=== PATIENT | female | born 1955 | race Caucasian/White ===

== ENCOUNTER 2016-04-18 11:46 | Outpatient (CLI) | payer MEDICARE, MEDICAID ==
[~2016-04-18] VITALS: Ht 157.5 cm; Wt 82.3 kg
[~2016-04-18 11:46] MED LIST: AMOX250C PO; ATR20T PO; BIMA2.5D3 OU; BLAC200C3 PO; DESV50TA PO; ESTR0.5T PO; ESTR1TAB14 PO; ESTR1TAB24 PO; FOLI-74 PO; HYDR-1231 PO; HYDR-3714 PO; IBUP-30 PO; INSASP10V SQ; INSU100C7 SQ; INSU100V; LEVO100T7 PO; LEVO5TAB12 PO; LEVO5TAB2 PO; LEVO75TA6 PO; LIDOCAINE PO; LOVA40TA2 PO; LVT.1T PO; METF500T8 PO; MTF500T PO; NYSTATIN PO; OMEP20CA12 PO; TML5OP2.5 OU; VITA-240 PO; ZLP10T PO; [UNRECOGNIZED DRUG - OTHER]; [UNRECOGNIZED DRUG - OTHER] PO; [UNRECOGNIZED DRUG - REMARK] OU
[2016-04-18] MEDS ORDERED: ASPI-808 PO (12:13)
[2016-04-18] MEDS ORDERED: METF-478 PO (12:13)
[2016-04-18] MEDS ORDERED: LATA2.5D5 OP (12:13)
[2016-04-18] MEDS ORDERED: NF-PREM2.5 PO (12:13)
[2016-04-18] MEDS ORDERED: DESV25TA PO (12:13)
[2016-04-18] MEDS ORDERED: IBUP-30 PO (12:13)
[2016-04-18] MEDS ORDERED: MAGN500C15 PO (12:13)
[2016-04-18] MEDS ORDERED: OMEP40CA36 PO (12:15)
[2016-04-18 12:19] VITALS: BP 138/74
== END 2016-04-18 13:38 | disposition home or self-care (01) ==
LOC: PREOP 11:46
PROVIDERS: ATTEND Orthopaedic Surgery
DX: Z01.818 Encounter for other preprocedural examination (principal); Z11.2 Encounter for screening for other bacterial diseases; S43.52XA Sprain of left acromioclavicular joint, initial encounter; X58.XXXA Exposure to other specified factors, initial encounter; Y99.8 Other external cause status
CPT/HCPCS: 87081

== ENCOUNTER 2016-04-24 06:20 | Day surgery (SDC) | payer MEDICARE, MEDICAID ==
--- NOTE | 2016-04-22 07:27 | HISTORY AND PHYSICAL ---
DATE OF ADMISSION: 04/24/2016 This will be fore left shoulder arthroscopy and distal clavicle excision. HISTORY: The patient is a 60-year-old, [id number] female who fell striking her left shoulder against a door and since then has had pain, worse with overhead activities. She reports that this has been progressive in nature. She has failed to respond to physical therapy, as well as activity modifications and due to persistent symptoms, the patient has elected to proceed with surgical intervention. An MRI revealed acromioclavicular arthrosis with some thickening of her supraspinatus but no full thickness tearing. REVIEW OF SYSTEMS: No chest pain, no shortness of breath. No dysuria. PAST MEDICAL HISTORY: 1. Back pain. 2. Constipation. 3. Depression. 4. Diabetes. 5. Reflux. 6. Hyperlipidemia. 7. Hypertension. 8. Hypothyroidism. 9. Menopause osteoarthritis. 10. Vertigo. 11. Chronic bronchitis. 12. Glaucoma. PAST SURGICAL HISTORY: 1. Appendectomy. 2. Cholecystectomy. 3. Colonoscopy. 4. Ovarian cyst resection. FAMILY HISTORY: Noncontributory. PRIMARY CARE PROVIDER: [facility]. MEDICATIONS: 1. Ambien 2. Nasacort 3. Xyzal 4. levothyroxine 5. Pristiq 6. Humalog 7. metformin 8. Tylenol 9. omeprazole 10. lovastatin 11. Levocetirizine 12. Prempro 13. Pro-Air 14. Latanoprost 15. potassium 16. Meclizine ALLERGIES: 1. Iodine 2. Keflex 3. Shrimp SOCIAL HISTORY: The patient is a former smoker. Denies alcohol use. PHYSICAL EXAMINATION: The patient's well-developed, well-nourished, in no acute distress. HEENT: Normocephalic, atraumatic. Pupils are equal, round, and reactive to light. OROPHARYNX: Clear. NECK: Supple with no lymphadenopathy. LUNGS: Clear to auscultation bilaterally. HEART: Regular rate and rhythm. ABDOMEN: Soft, nontender, nondistended. EXTREMITY EXAM: The left shoulder demonstrates tenderness at her acromioclavicular joint. She has active forward elevation of 120 degrees, passive is 160 degrees. She has pain beyond 90 degrees. She has a positive Neer and positive Hollis sign. She has weakness with abduction and external rotation. She has negative Spurling's maneuver. No skin lesions are noted. IMPRESSION: Left shoulder impingement with acromioclavicular arthrosis. PLAN: Left shoulder arthroscopy with acromioplasty, distal clavicle excision. The risks, benefits, options, ramifications and recovery were discussed at length with the patient. She understands and wishes to proceed. Job ID: [id number] Dictated Date: 04/16/2016 16:13:00 Brick Or Block Maker Date: 04/17/2016 08:38:53/anaya
[~2016-04-24] VITALS: Ht 157.5 cm; Wt 82.3 kg
[~2016-04-24 06:20] MED LIST changes: +ASPI-808 PO; +DESV25TA PO; +LATA2.5D5 OP; +MAGN500C15 PO; +METF-478 PO; +NF-PREM2.5 PO; +OMEP40CA36 PO
[2016-04-24] MEDS ORDERED: CLINDAMYCIN 600 MG/50 ML IVPB 50 ML IV ONE ×2 (06:22→07:15)
[2016-04-24] MEDS ORDERED: FAMOTIDINE 20MG/2ML IV (PEPCID) ONE (06:39)
[2016-04-24] MEDS ORDERED: SEVOFLURANE (ULTANE) 15 ML INHAL SOLN ONE (07:05)
[2016-04-24] MEDS ORDERED: ONDANSETRON 4 MG/2 ML (SDV) Z0FRAN ONE (07:05)
[2016-04-24] MEDS ORDERED: LIDOCAINE PF 2% 10 ML (XYLOCAINE) AMP ONE (07:05)
[2016-04-24] MEDS ORDERED: ROPIVACAINE 5MG/ML 30ML VIAL ONE (07:05)
[2016-04-24] MEDS ORDERED: ROCURONIUM 50 MG/5 ML (ZEMURON) VIAL IV ONE (07:05)
[2016-04-24] MEDS ORDERED: proPOfol 200 MG/20 ML (DIPRIVAN) VIAL IV ONE (07:05)
[2016-04-24] MEDS ORDERED: fentaNYL INJECTION 100 MCG/2 ML AMP ONE (07:06)
[2016-04-24] MEDS ORDERED: MIDAZOLAM 2 MG/2 ML (VERSED) VIAL ONE (07:06)
[2016-04-24] MEDS ORDERED: morphine PF (DURAMORPH) 10 MG/10 ML AMP ONE (07:10)
[2016-04-24] MEDS ORDERED: BUPIVACAINE 0.25% 30 ML (SENSORCAINE) VIAL ONE (07:10)
[2016-04-24] MEDS ORDERED: LACTATED RINGERS 1,000 ML IV PRN (07:11)
--- NOTE | 2016-04-24 07:20 | Progress Note-Pre Operative ---
Pre-Operative Progress Note H&P Reviewed The H&P was reviewed, patient examined and no changes noted. Date H&P Reviewed: Apr 24, 2016 Time H&P Reviewed: 07:11 Pre-Operative Diagnosis: left acromioclavicular joint sprain MADDI OLIVIER MD Apr 24, 2016 07:20
--- NOTE | 2016-04-24 07:21 | Progress Note-Post Operative ---
Post-Operative Progess Note Prepress Specialist Michael Ramirez Pre-Operative Diagnosis left acromioclavicular joint sprain Post-Operative Diagnosis left acromioclavicular joint sprain left shoulder SLAP tear and labral tear left shoulder adhesive capsulitis Post-Op Procedure Note Date of Procedure: Apr 24, 2016 Name of Procedure: left shoulder arthroscopic biceps tenotomy, labral debridement and distal clavicle excision and left shoulder manipulation under anesthesia Anesthesia Type GETA plus interscalene Estimated blood loss (mL): minimal Packing: none Specimen(s) collected none MADDI OLIVIER MD Apr 24, 2016 07:21
[2016-04-24] MEDS ORDERED: oxyCODONE/APAP 5/325MG (PERCOCET 5) TABLET PO PRN (07:30)
[2016-04-24 07:58] VITALS: BP 139/82
[2016-04-24] MEDS ORDERED: morphine INJ 10 MG/ML 1ML (SYR OR VIAL) ONE (08:21)
[2016-04-24] MEDS ORDERED: GLYCOPYRROLATE 0.2 MG/ML (ROBINUL) 2 ML VIAL ONE (08:24)
[2016-04-24] MEDS ORDERED: NEOSTIGMINE (BLOXIVERZ ) 1 MG/1ML 10 ML VIAL ONE (08:24)
[2016-04-24] MEDS ORDERED: ONDANSETRON 4 MG/2 ML (SDV) Z0FRAN IV PRN (09:00)
[2016-04-24] MEDS ORDERED: fentaNYL INJECTION 250 MCG/5 ML AMP IV PRN (09:00)
[2016-04-24] MEDS ORDERED: KETOROLAC 30 MG/ML VIAL IV PRN (09:00)
[2016-04-24 09:45] VITALS: BP 124/95
[2016-04-24] MEDS ORDERED: OXYC-471 PO (10:02)
[2016-04-24 10:15] VITALS: BP 115/58
[2016-04-24] MEDS ORDERED: MIDAZOLAM 2 MG/2 ML (VERSED) VIAL IV ONE (10:15)
[2016-04-24 10:45] VITALS: BP 116/59
--- NOTE | 2016-04-24 13:07 | OPERATIVE REPORT ---
PROCEDURE PHYSICIAN: MADDI OLIVIER DATE OF PROCEDURE: 04/24/2016 PREOPERATIVE DIAGNOSIS: 1. Left shoulder SLAP tear. 2. Left acromioclavicular joint sprain, symptomatic. PROCEDURE: 1. Left shoulder SLAP tear. 2. Left acromioclavicular joint sprain, symptomatic. 3. Left shoulder adhesive capsulitis. 4. Left shoulder labral tear. PROCEDURE: 1. Left shoulder arthroscopic biceps tenotomy. 2. Left shoulder arthroscopic labial debridement. 3. Left shoulder arthroscopic distal clavicle excision. 4. Left shoulder manipulation under anesthesia. SURGEON: Nina BINDERY LEADPERSON: Michael Ramirez who assisted throughout the procedure and closed the incisions. ANESTHESIA: General endotracheal plus interscalene nerve block by Bridger Robb CRNA. ESTIMATED BLOOD LOSS: Minimal. DRAINS: None. COMPLICATIONS: None. POSTOPERATIVE PLAN: Sling wear for comfort with passive range of motion, progressing to active as symptoms allow. The patient was transported to the recovery room, awake, in stable condition. STATEMENT OF MEDICAL NECESSITY: The patient is a 60-year-old female who fell into a door and had had anterior/superior left shoulder pain. This had failed to respond to conservative measures. She also had some stiffness. She had a positive [place]'s maneuver. She is tender to acromioclavicular joint and had pain with crossed body adduction and due to functional impairment and failure to improve with conservative measures, the patient elected to proceed with surgical intervention. Examination under anesthesia, pre-manipulation demonstrated forward elevation of 150 degrees. Postmanipulation was 170, external rotation pre-manipulation was 60, postmanipulation 70, internal rotation pre-manipulation 50, postmanipulation 60. Arthroscopic findings demonstrated type II SLAP tear. There was a flap tear of the anterior labrum at the 9 o'clock position. The central portion of the humeral head demonstrated diffuse grade 1 chondral softening in a 15 x 15 area. The rotator cuff was intact throughout. The subacromial space demonstrated moderate bursitis with prominence of the distal clavicle. PROCEDURE: After risks and benefits of procedure were discussed and questions were answered an informed consent was signed and placed on chart. The operative site was confirmed in the preoperative holding area and initialed by the surgeon. After adequate levels of regional plus general endotracheal anesthetic were obtained, a timeout was called confirming the operative site. Examination under anesthesia was performed with the above findings noted and manipulation was carefully performed bringing the arm in a forward elevation thus stabilizing the scapula. The arm was then brought to the side and external rotation was performed. The arm was then brought to 90 degrees of abduction and external rotation followed by internal rotation were performed until symmetric to the contralateral side. The left shoulder and upper extremity were prepped and draped usual sterile fashion. The shoulder joint was injected 20 mL of fluid as was the subacromial space. A standard posterior portal was placed under direct visualization and anterior portal was created in the interval between biceps, subscapularis and glenoid. The biceps anchor was released and the stump was debrided with a shaver. The anterior labral flap was debrided with a shaver, back to a stable edge. The scope was then redirected into subacromial space and a bursectomy was performed. The distal clavicle was excised with a bur excising the distal 8 mm from posterior to anterior and from medial to lateral. The scope was then inserted anteriorly to ensure adequate resection. The subacromial space was copiously irrigated. The portal sites were closed with 3-0 nylon in simple interrupted fashion. The shoulder was injected with Duramorph. Portal sites were infiltrated with plain Marcaine. A soft dressing and sling were applied. The patient was transported to recovery room, awake, in stable condition. Job ID: [id number] Dictated Date: 04/24/2016 08:41:50 Assembler Carbon Brushes Date: 04/24/2016 12:51:11 / kenya
== END 2016-04-24 12:10 | disposition home or self-care (01) ==
LOC: SDC 06:20
PROVIDERS: ATTEND Orthopaedic Surgery
DX: S43.52XA Sprain of left acromioclavicular joint, initial encounter (principal); M75.02 Adhesive capsulitis of left shoulder; S43.432A Superior glenoid labrum lesion of left shoulder, initial encounter; W18.00XA Striking against unspecified object with subsequent fall, initial encounter; Y99.8 Other external cause status; F32.9 Major depressive disorder, single episode, unspecified; E11.9 Type 2 diabetes mellitus without complications; K21.9 Gastro-esophageal reflux disease without esophagitis; I10 Essential (primary) hypertension; E03.9 Hypothyroidism, unspecified; Z87.891 Personal history of nicotine dependence
CPT/HCPCS: 82962

== ENCOUNTER 2016-09-03 10:44 | Outpatient (CLI) | payer MEDICARE, MEDICAID ==
[~2016-09-03] VITALS: Ht 157.5 cm; Wt 78.7 kg
[~2016-09-03 10:44] MED LIST changes: +OXYC-471 PO
[2016-09-03] MEDS ORDERED: DESV50TA PO (10:59)
[2016-09-03 11:00] VITALS: BP 127/67
== END 2016-09-03 11:31 | disposition home or self-care (01) ==
LOC: PREOP 10:44
PROVIDERS: ATTEND Orthopaedic Surgery
DX: Z01.818 Encounter for other preprocedural examination (principal); Z11.2 Encounter for screening for other bacterial diseases; M75.02 Adhesive capsulitis of left shoulder
CPT/HCPCS: 87081

== ENCOUNTER 2016-09-11 06:05 | Day surgery (SDC) | payer MEDICARE, MEDICAID ==
--- NOTE | 2016-09-03 16:29 | HISTORY AND PHYSICAL ---
DATE OF SERVICE: 09/11/2016 REASON FOR ADMISSION: Left shoulder manipulation HISTORY OF PRESENT ILLNESS: The patient is a 60-year-old right hand dominant female who previously underwent a left biceps tenotomy. She did have some mild adhesive capsulitis preoperatively. Postoperatively, she had plateaued with her motions and has failed to improve with extensive physical therapy and because of this it is recommended the patient undergo manipulation. REVIEW OF SYSTEMS: No chest pain. No shortness of breath. No Dysuria. PAST MEDICAL HISTORY: Back pain, constipation, depression, diabetes, reflux, hyperlipidemia, hypertension, hypothyroidism, menopause, osteoarthritis, vertigo, chronic bronchitis, glaucoma. PAST SURGICAL HISTORY: Appendectomy, cholecystectomy, colonoscopy, ovarian cyst resection and left shoulder arthroscopy. FAMILY HISTORY: Noncontributory. PRIMARY CARE PROVIDER: [facility]. MEDICATIONS: Ambien, Nasacort, Xyzal, levothyroxine, Pristiq, Humalog, metformin, Tylenol, omeprazole, lovastatin, levocetirizine, Prempro, ProAir, latanoprost, potassium, meclizine, oxycodone. ALLERGIES: IODINE, KEFLEX and SHRIMP. SOCIAL HISTORY: The patient is a former smoker. Denies alcohol use. PHYSICAL EXAMINATION: GENERAL: The patient is well developed and well nourished in no acute distress. HEENT: Normocephalic, atraumatic. Pupils are equal, round and reactive to light. Oropharynx is clear. NECK: Supple with no lymphadenopathy. LUNGS: Clear to auscultation bilaterally. HEART: Regular rate and rhythm. ABDOMEN: Soft, nontender, nondistended. EXTREMITIES: The left shoulder demonstrates no atrophy. She has well-healed incisions. She has active forward elevation to 140 degrees, external rotation is 50 degrees, internal rotation is to her belt line. IMPRESSION: Left shoulder adhesive capsulitis status post biceps tenotomy. PLAN: Left shoulder manipulation under anesthesia. The risks, benefits, options, ramifications and recovery were discussed at length with the patient. She understands and wishes to proceed. Job ID: [id number] DocumentID: [id number] Dictated Date: 09/03/2016 16:06:25 Implementation Coordinator Date: 09/03/2016 16:28:49 Dictated By: MADDI OLIVIER MD
[~2016-09-11] VITALS: Ht 157.5 cm; Wt 78.7 kg
[2016-09-11] MEDS ORDERED: LACTATED RINGERS 1,000 ML IV PRN (06:22)
[2016-09-11] MEDS ORDERED: NS (IVPB) 50 ML ONE (06:26)
[2016-09-11] MEDS ORDERED: ceFAZolin 1,000 MG (ANCEF) VIAL ONE (06:26)
[2016-09-11] MEDS ORDERED: FAMOTIDINE 20MG/2ML IV (PEPCID) IV ONE (06:30)
[2016-09-11] MEDS ORDERED: SEVOFLURANE (ULTANE) 15 ML INHAL SOLN ONE (06:40)
[2016-09-11] MEDS ORDERED: proPOfol 200 MG/20 ML (DIPRIVAN) VIAL IV ONE (06:40)
[2016-09-11] MEDS ORDERED: LIDOCAINE PF 2% 5 ML (XYLOCAINE) VIAL ONE (06:40)
[2016-09-11] MEDS ORDERED: LACTATED RINGERS 1,000 ML IV ONE (06:40)
[2016-09-11] MEDS ORDERED: MIDAZOLAM 2 MG/2 ML (VERSED) VIAL ONE (06:42)
[2016-09-11] MEDS ORDERED: fentaNYL INJECTION 100 MCG/2 ML AMP ONE (06:42)
[2016-09-11] MEDS ORDERED: ONDANSETRON 4 MG/2 ML (SDV) Z0FRAN ONE (06:43)
[2016-09-11] MEDS ORDERED: CATHETER FLUSH 10 ML SYR IV PRN (06:45)
[2016-09-11] MEDS ORDERED: ceFAZolin 1 GM/NS 50 ML IVPB IV ONE ×2 (06:45)
[2016-09-11] MEDS ORDERED: HYDROcodone/APAP 7.5 MG/325 MG (LORTAB, LORCET PLUS) TABLET PO PRN (07:15)
--- NOTE | 2016-09-11 07:23 | Progress Note-Pre Operative ---
Pre-Operative Progress Note H&P Reviewed The H&P was reviewed, patient examined and no changes noted. Date Seen by Provider: Sep 11, 2016 Time Seen by Provider: 07:10 Date H&P Reviewed: Sep 11, 2016 Time H&P Reviewed: 07:10 Pre-Operative Diagnosis: left shoulder adhesive capsulitis MADDI OLIVIER MD Sep 11, 2016 07:23
--- NOTE | 2016-09-11 07:25 | Progress Note-Post Operative ---
Post-Operative Progess Note Surgeon (s)/Blueprint Tracer (s) Surgeon MADDI OLIVIER MD Blueprint Tracer: Michael Ramirez Pre-Operative Diagnosis left shoulder adhesive capsulitis Post-Operative Diagnosis left shoulder adhesive capsulitis Procedure & Operative Findings Date of Procedure 09/11/16 Procedure Performed/Findings left shoulder manipulation under anesthesia Anesthesia Type GETA Estimated Blood Loss Estimated blood loss (mL): none Specimens/Packing Specimens Removed none Packing: none MADDI OLIVIER MD Sep 11, 2016 07:24
[2016-09-11 07:26] VITALS: BP 129/72
[2016-09-11] MEDS: fentaNYL INJECTION 100 MCG/2 ML AMP IVP PRN ×3 (07:59→08:09)
[2016-09-11 08:30] VITALS: BP 131/54
[2016-09-11] MEDS ORDERED: HYDR-3816 PO (08:46)
[2016-09-11 09:00] VITALS: BP 126/49
[2016-09-11 09:30] VITALS: BP 115/50
--- NOTE | 2016-09-11 09:44 | OPERATIVE REPORT ---
DATE OF SERVICE: 09/11/2016 PREOPERATIVE DIAGNOSIS: Left shoulder adhesive capsulitis. POSTOPERATIVE DIAGNOSIS: Left shoulder adhesive capsulitis. PROCEDURE: Left shoulder manipulation under anesthesia. SURGEON: Dr. Olivier. PATTERN FINISHER: Michael Ramirez who assisted throughout the procedure. ANESTHESIA: Monitored anesthesia care by Bridger Robb CRNA. ESTIMATED BLOOD LOSS: Not applicable. DRAINS: None. COMPLICATIONS: None. POSTOPERATIVE PLAN: Range of motion exercises. The patient was transferred to the recovery room, awake and in stable condition. STATEMENT OF MEDICAL NECESSITY: The patient is a 60-year-old female, who previously underwent left shoulder arthroscopy several months ago. She had plateaued on her motion and had pain due to stiffness. Due to failure to improve with extensive conservative measures, it was recommended the patient undergo manipulation her anesthesia. DESCRIPTION OF PROCEDURE: After risks and benefits of the procedure were discussed and questions were answered, an informed consent was signed and placed on the chart. The operative site was confirmed in the preoperative holding area and initialed by the surgeon. The patient was then transported to the operating room after adequate levels of monitored anesthesia care were obtained. A timeout was called, confirming the operative site while stabilizing the scapula forward elevation was performed. Over the last 10 degrees, there were adhesions that were felt to release allowing symmetric forward elevation. The arm was then brought the side and external rotation was performed while stabilizing the scapula. Again, there was release of adhesions noted. The arm was then brought in to 90 degrees of abduction and external followed by internal rotation were performed while stabilizing the scapula until symmetric to the contralateral site. The humerus moved as a unit post manipulation and the patient was transferred to the recovery room, awake and in stable condition. Job ID: [id number] DocumentID: [id number] Dictated Date: 09/11/2016 07:40:37 Oil And Gas Field Technician Date: 09/11/2016 08:58:31 Dictated By: MADDI OLIVIER MD
[2016-09-11 10:00] VITALS: BP 115/50
== END 2016-09-11 10:00 | disposition home or self-care (01) ==
LOC: SDC 06:05
PROVIDERS: ATTEND Orthopaedic Surgery
DX: M75.02 Adhesive capsulitis of left shoulder (principal); E78.5 Hyperlipidemia, unspecified; F32.9 Major depressive disorder, single episode, unspecified; F41.9 Anxiety disorder, unspecified; Z87.891 Personal history of nicotine dependence; K21.9 Gastro-esophageal reflux disease without esophagitis; E11.9 Type 2 diabetes mellitus without complications; E03.9 Hypothyroidism, unspecified; E66.9 Obesity, unspecified; Z68.31 Body mass index [BMI] 31.0-31.9, adult
CPT/HCPCS: 82962

== ENCOUNTER 2016-11-11 13:00 | Outpatient (RCR) | payer MEDICARE, MEDICAID ==
[~2016-11-11 13:00] MED LIST changes: +HYDR-3816 PO
== END 2016-12-11 10:20 | disposition home or self-care (01) ==
PROVIDERS: ATTEND Orthopaedic Surgery
DX: M75.02 Adhesive capsulitis of left shoulder (principal)

== ENCOUNTER → 2018-07-21 | Outpatient (CLI) | payer MEDICARE, MEDICAID ==
[~2018-07-21] MED LIST changes: +HYDR-34 PO; -HYDR-3816 PO
--- NOTE | 2018-07-21 16:00 | Diagnostic Imaging Report ---
INDICATION: Postmenopausal, evaluate for osteoporosis. COMPARISON: None. FINDINGS: AP Spine L1-L4: [BMD (g/cm2): 0.954] [T-Score: -2.0] [Z-Score: -1.4] [BMD Previous: NA] [BMD % Change: NA] LT Hip Neck: [BMD (g/cm2): 0.722] [T-Score: -2.3] [Z-Score: -1.4] LT Hip Total: [BMD (g/cm2):0.746] [T-Score:-1.3] [Z-Score: -0.7] [BMD Previous: NA] [BMD % Change: NA] RT Hip Neck: [BMD (g/cm2):0.755] [T-Score:-2.0] [Z-Score:-1.1] RT Hip Total: [BMD (g/cm2):0.869] [T-score:-1.1] [Z-Score:-0.6] [BMD Previous:NA] [BMD % Change:NA] *Indicates significant change from prior examination based on 95% confidence level. World Health Organization criteria for BMD interpretation classify patients as Normal (T-score at or above -1.0), Osteopenic (T-score between -1.0 and -2.5) or Osteoporotic (T-score at or below -2.5). LIMITATIONS AND MODIFICATION: None. FRACTURE RISK (FRAX SCORE): The ten year probability of (%): Major Osteoporotic Fracture: [17.3] Hip Fracture: [2.9] IMPRESSION: 1. Osteopenia (Low bone mass). 2. Baseline examination. 3. See below National Osteoporosis Foundation guidelines on when to potentially initiate pharmacologic therapy. Based on the National Osteoporosis Foundation Guidelines, pharmacologic treatment should be initiated in any of the following, unless clinical conditions suggest otherwise: * Any patient with prior fragility fracture of the hip or vertebrae. A spine fracture indicates 5X risk for subsequent spine fracture and 2X risk for subsequent hip fracture. * Osteoporosis (T-score <-2.5). * Postmenopausal women and men age 50 and older with low bone mass/osteopenia (T-score between -1.0 and -2.5) by DXA and 10-year major osteoporotic fracture greater than 20% or a 10-year probability of hip fracture greater than 3%. These fracture risks are supplied above in the FRAX score, if applicable. * Clinician judgement and/or patient preferences may indicate treatment for people with 10-year fracture probabilities above or below these levels. Dictated by: Dictated on workstation # [id number]
== END ==
LOC: RAD 11:09
PROVIDERS: ATTEND Nurse Practitioner Community Health
DX: M85.89 Other specified disorders of bone density and structure, multiple sites (principal); N95.9 Unspecified menopausal and perimenopausal disorder; Z78.0 Asymptomatic menopausal state
CPT/HCPCS: 77080

== ENCOUNTER 2018-09-11 14:23 | Outpatient (RCR) | payer MEDICARE, MEDICAID ==
[2018-09-13] MEDS ORDERED: ACHD5005 PO (12:34)
== END 2018-10-15 | disposition home or self-care (01) ==
PROVIDERS: ATTEND Nurse Practitioner Community Health
DX: M75.41 Impingement syndrome of right shoulder (principal)

== ENCOUNTER 2018-09-13 10:52 | Emergency (ER) | payer MEDICARE, MEDICAID ==
[~2018-09-13] VITALS: Ht 157.5 cm; Wt 81.6 kg
[2018-09-13] MEDS ORDERED: HYDROcodone/APAP 5 MG/325 MG (LORTAB) TAB PO ONE (11:15)
--- NOTE | 2018-09-13 11:20 | ED Lower Extremity ---
General Chief Complaint: Lower Extremity Stated Complaint: L FOOT PAIN AFTER FALL Nursing Triage Note: PT TO TRIAGE BY WHEELCHAIR WITH COMPLAINT OF LEFT FOOT PAIN. PT STATES SHE TRIPPED GOING DOWN STAIRS LAST NIGHT. Nursing Sepsis Screen: No Definite Risk Source: patient Exam Limitations: no limitations History of Present Illness Date Seen by Provider: Sep 13, 2018 Time Seen by Provider: 11:18 Initial Comments 62-year-old female who presents to the emergency room with complaints of left foot and left ankle pain after tripping down 3 stairs last night. She denies other injuries from the fall. She reports she was carrying her little dog out to use the restroom when she missed a step. She denies hitting her head or loss of consciousness. Normal capillary refill. Onset: yesterday Pain/Injury Location: left ankle Modifying Factors: Worse With Movement Allergies and Home Medications Allergies Coded Allergies: iodine (Verified Allergy, Unknown, 09/03/16) shrimp (Verified Allergy, Unknown, 09/03/16) cephalexin (Verified Adverse Reaction, Mild, DIARRHEA, 09/11/16) Home Medications Aspirin 325 Mg Tablet, 650 MG PO PRN PRN for PAIN, (Reported) Desvenlafaxine Succinate 50 Mg Tab.er.24h, 50 MG PO DAILY, (Reported) Estrog Conj/Medryoxyprog Acet 1 Tab Tab, 1 TAB PO DAILY, (Reported) Hydrocodone Bit/Acetaminophen 1 Each Tablet, 1 TAB PO Q4H PRN for PAIN-MODERATE Prescribed by: RIK NIELSEN on 09/11/16 0846 Hydrocodone Bit/Acetaminophen 1 Tab Tab, 1-2 EACH PO Q6H PRN for PAIN-MODERATE Prescribed by: CHRISTINE DIAZ on 09/13/18 1234 Ibuprofen 200 Mg Tablet, 200 MG PO PRN PRN for PAIN, (Reported) Insulin Lispro 100 Unit/1 Ml Vial, UD, (Reported) PER INSULIN PUMP Latanoprost 2.5 Ml Drops, 2.5 ML OP DAILY, (Reported) Levocetirizine Dihydrochloride 5 Mg Tablet, 5 MG PO DAILY, (Reported) Levothyroxine Sodium 100 Mcg Tablet, 100 MCG PO DAILY, (Reported) Lovastatin 40 Mg Tablet, 40 MG PO HS, (Reported) Magnesium Oxide 500 Mg Capsule, 500 MG PO DAILY, (Reported) Metformin Hcl 500 Mg Tab.sr.24h, 500 MG PO BID, (Reported) Omeprazole 40 Mg Capsule.dr, 40 MG PO BID, (Reported) Zolpidem Tartrate 10 Mg Tab, 5 MG PO HS PRN for SLEEP NEEDED FOR SLEEP Prescribed by: KAROLYN FARMER on 08/24/13 0987 Patient Home Medication List Home Medication List Reviewed: Yes Review of Systems Constitutional: see HPI; No chills, No fever Musculoskeletal: see HPI, joint pain (left ankle) All Other Systems Reviewed Negative Unless Noted: Yes Past Ukmpviy-Nedgcr-Ureucj Hx Past Med/Social Hx: Reviewed Nursing Past Med/Soc Hx Patient Social History Alcohol Use: Denies Use Recreational Drug Use: No Smoking Status: Former Smoker Former Smoker, Quit: Apr 18, 1993 Recent Foreign Travel: No Contact w/Someone Who Travel: No Recent Infectious Disease Expo: No Recent Hopitalizations: No Immunizations Up To Date Tetanus Booster (TDap): Less than 5yrs Date of Pneumonia Vaccine: May 22, 2011 Seasonal Allergies Seasonal Allergies: Yes Past Medical History Surgeries: Yes (OVARIAN CYST, DENTAL, MOLE REMOVED, TOENAIL, FX ARM) Appendectomy Respiratory: No Cardiac: Yes High Cholesterol Neurological: No Reproductive Disorders: No Female Reproductive Disorders: Ovarian 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 Sexually Transmitted Disease: No HIV/AIDS: Yes Kidney Stones Gastrointestinal: Yes Gastroesophageal Reflux, Chronic Constipation Musculoskeletal: Yes Arthritis, Chronic Back Pain, Fractures Endocrine: Yes Diabetes, Insulin dep, Hypothyroidsim Glaucoma Loss of Vision: Bilateral Hearing Impairment: Denies Cancer: No Psychosocial: Yes Anxiety, Depression Integumentary: No Blood Disorders: No Adverse Reaction/Blood Tranf: No (N/A) Family Medical History Reviewed Nursing Family Hx Cancer 19 FATHER ( of stomache cancer) Family history: Arthritis G8 BROTHER (bad back) Family history: Gastrointestinal disease 19 MOTHER ( with c-diff) Physical Exam Vital Signs Vital Signs - First Documented 09/13/18 11:05 Temp 97.0 Pulse 64 Resp 17 B/P (MAP) 119/60 (79) Pulse Ox 96 O2 Delivery Room Air Capillary Refill : Less Than 3 Seconds Height, Weight, BMI Height: 5'2.00" Weight: 180lbs. 7.0oz. 81.415539ex; 31.7 BMI Method:Stated General Appearance: WD/WN, no apparent distress Cardiovascular: normal peripheral pulses, regular rate, rhythm, no edema, no gallop, no JVD, no murmur Respiratory: chest non-tender, lungs clear, normal breath sounds, no respi ratory distress, no accessory muscle use Ankles: left ankle pain, left ankle soft tissue tenderness Neurologic/Tendon: normal sensation Neurologic/Psychiatric: alert, normal mood/affect, oriented x 3 Skin: normal color, warm/dry Progress/Results/Core Measures Results/Orders My Orders Orders - CHRISTINE DIAZ Hydrocodone/Apap 5/325 Tablet (Lortab 5 (09/13/18 11:15) Foot, Left, 3 Views (09/13/18 11:10) Ankle, Left, 3 Views (09/13/18 11:10) Medications Given in ED Vital Signs/I&O 09/13/18 09/13/18 11:05 13:00 Temp 97.0 97.0 Pulse 64 64 Resp 17 17 B/P (MAP) 119/60 (79) 119/60 (79) Pulse Ox 96 96 O2 Delivery Room Air Blood Pressure Mean: 79 Progress Progress Note : Time: 12:32 Progress Note I have seen and evaluated the patient. I have informed her of her imaging studies. She was placed in splint and walker was provided. She agrees with plan of care, plans for discharge, return precautions were given. Departure Impression Primary Impression: Metatarsal stress fracture of left foot Disposition: 01 HOME, SELF-CARE Condition: Stable/Unchanged Departure-Patient Inst. Decision time for Depature: 12:32 Referrals: [facility] (PCP) Primary Care Physician SHER ROSARIO (Family) Primary Care Physician EUGENE LEGGETT MD Patient Instructions: Foot Fracture (DC) Add. Discharge Instructions: Use the crutches and wear the splint at all times. Do not bare weight on the foot. Ice to the sore areas at 20 minute intervals. Elevate the extremity as much as possible. Take medication as directed. For pain unrelieved by the hydrocodone you may use Tylenol in addition to. Do not exceed your daily limit of Tylenol 4000 mg. Call first thing tomorrow morning to schedule appointment with Dr. Leggett orthopedic surgeon. Return back to the emergency room for worsening symptoms or concerns as needed. All discharge instructions reviewed with patient and/or family. Voiced understanding. Scripts Hydrocodone Bit/Acetaminophen (Hydrocodone/Acetaminophen 5/325mg Tablet) 1 Tab Tab 1-2 EACH PO Q6H PRN for PAIN-MODERATE MDD 10 for 3 Days, #20 TAB 0 Refills Prov: CHRISTINE DIAZ 09/13/18 CHRISTINE DIAZ Sep 13, 2018 11:20
--- NOTE | 2018-09-13 12:05 | Diagnostic Imaging Report ---
Indication: Pain and swelling. Findings: There are fractures through the proximal second, third and fourth metatarsals. These are minimally displaced. Distal fracture fragments are subluxed slightly laterally. No other fracture or dislocation. Soft tissues are unremarkable. Impression: Minimally displaced fractures through the proximal second, third and fourth metatarsals as described. Dictated by: Dictated on workstation # [id number]
--- NOTE | 2018-09-13 12:08 | Diagnostic Imaging Report ---
EXAM: ANKLE, LEFT, 3 VIEWS. INDICATION: Trip on stairs. Swelling and pain. COMPARISON: Left foot radiographs also performed today. FINDINGS: Normal alignment of the ankle. No ankle fracture. No left ankle joint effusion. Mildly displaced fractures through the base of the left second through fourth metatarsals are better appreciated on the comparison exam. IMPRESSION: 1. No acute findings in the left ankle. 2. Left second through fourth metatarsal fractures, better appreciated on the dedicated exam. Dictated by: Dictated on workstation # [id number]
[2018-09-13] MEDS ORDERED: ACHD5005 PO (12:34)
[2018-09-13 13:00] VITALS: BP 119/60
== END 2018-09-13 13:00 | disposition home or self-care (01) ==
LOC: EDUNIT# 10:52 → ER 10:53
DX: M84.375A Stress fracture, left foot, initial encounter for fracture (principal); E78.00 Pure hypercholesterolemia, unspecified; K21.9 Gastro-esophageal reflux disease without esophagitis; E03.9 Hypothyroidism, unspecified; E11.9 Type 2 diabetes mellitus without complications; F41.9 Anxiety disorder, unspecified; F32.9 Major depressive disorder, single episode, unspecified; Z87.19 Personal history of other diseases of the digestive system; Z87.442 Personal history of urinary calculi; Z80.0 Family history of malignant neoplasm of digestive organs; Z91.041 Radiographic dye allergy status; Z88.1 Allergy status to other antibiotic agents; Z79.82 Long term (current) use of aspirin; Z79.4 Long term (current) use of insulin; Z87.891 Personal history of nicotine dependence; Z90.49 Acquired absence of other specified parts of digestive tract; W10.8XXA Fall (on) (from) other stairs and steps, initial encounter; X50.1XXA Overexertion from prolonged static or awkward postures, initial encounter
CPT/HCPCS: 73610; 73630

== ENCOUNTER → 2018-09-15 | Outpatient (CLI) | payer MEDICARE, MEDICAID ==
[~2018-09-15] MED LIST changes: +ACHD5005 PO
== END ==
LOC: ORTHO 14:52
PROVIDERS: ATTEND Orthopaedic Surgery
DX: S92.322A Displaced fracture of second metatarsal bone, left foot, initial encounter for closed fracture (principal); X58.XXXA Exposure to other specified factors, initial encounter
CPT/HCPCS: 99203

== ENCOUNTER → 2018-09-30 | Outpatient (CLI) | payer MEDICARE, MEDICAID ==
--- NOTE | 2018-09-30 12:01 | Diagnostic Imaging Report ---
EXAMINATION: Left foot. INDICATION: Fracture of second, third, and fourth metatarsal. TECHNIQUE: Three views were obtained. FINDINGS: The prior exam of 09/13/2018 noted minimally displaced fractures of the proximal second, third, and fourth metatarsals. On this exam, the fractures of the third and fourth metatarsals are unchanged. There does not appear to have been any significant change in the fracture involving the base of the second metatarsal either. However, I would suggest that the distal fracture fragment of the second metatarsal is displaced laterally by approximately one-third the width of the base of the second metatarsal. There is little healing callus formation about the fracture fragments. No other fracture or acute bony abnormality is noted. There does seem to be less soft tissue edema over the forefoot than noted on the prior exam. IMPRESSION: 1. The displaced fracture of the second metatarsal and the minimally displaced fractures of the base of the third and fourth metatarsals seen previously are again evident and essentially no different. There is little if any healing callus formation present. A followup study would be recommended for continued evaluation. 2. There is no acute bony abnormality noted, otherwise. Dictated by: Dictated on workstation # [id number]
== END ==
LOC: ORTHO 08:21
PROVIDERS: ATTEND Orthopaedic Surgery
DX: S92.322A Displaced fracture of second metatarsal bone, left foot, initial encounter for closed fracture (principal); S92.332A Displaced fracture of third metatarsal bone, left foot, initial encounter for closed fracture; S92.342A Displaced fracture of fourth metatarsal bone, left foot, initial encounter for closed fracture; X58.XXXA Exposure to other specified factors, initial encounter
CPT/HCPCS: 73630; 99213

== ENCOUNTER → 2018-10-22 | Outpatient (CLI) | payer MEDICARE, MEDICAID ==
--- NOTE | 2018-10-22 17:32 | Diagnostic Imaging Report ---
INDICATION: Follow-up metatarsal fractures. TIME OF EXAM: 01:48 p.m. Correlation is made with prior study from 09/30/2018. FINDINGS: Fractures at the base of the second, third, and fourth metatarsals are again noted. Fracture lines remain visible. Overall alignment is stable. No new fracture is seen. Phalanges are intact. Mid foot and hind foot are unremarkable. IMPRESSION: Stable appearance of the left foot since examination from 09/30/2018. Fractures at the base of the second through fourth metatarsals are again noted with fracture lines remaining clearly visible. Dictated by: Dictated on workstation # [id number]
== END ==
LOC: ORTHO 13:12
PROVIDERS: ATTEND Orthopaedic Surgery
DX: S92.322A Displaced fracture of second metatarsal bone, left foot, initial encounter for closed fracture (principal); S92.332A Displaced fracture of third metatarsal bone, left foot, initial encounter for closed fracture; S92.342A Displaced fracture of fourth metatarsal bone, left foot, initial encounter for closed fracture; X58.XXXA Exposure to other specified factors, initial encounter
CPT/HCPCS: 73630; 99213

== ENCOUNTER → 2018-11-17 | Outpatient (CLI) | payer MEDICARE, MEDICAID ==
--- NOTE | 2018-11-17 14:13 | Diagnostic Imaging Report ---
Indication: Followup metatarsal fractures. Time of exam 1:32 PM Correlation is made with prior left foot radiographs from 10/22/2018. Fractures at the base of the second, third and fourth metatarsals again noted. Overall alignment appears to be stable. Fracture lines remain visible. No new fracture is seen. Phalanges are unremarkable. Midfoot and hindfoot are unremarkable. Impression: Fractures involving the second through fourth metatarsals proximally appear very similar to the examination from 10/22/2018 with fracture lines remaining clearly visible. Dictated by: Dictated on workstation # [id number]
== END ==
LOC: ORTHO 13:13
PROVIDERS: ATTEND Orthopaedic Surgery
DX: S92.322D Displaced fracture of second metatarsal bone, left foot, subsequent encounter for fracture with routine healing (principal); S92.332D Displaced fracture of third metatarsal bone, left foot, subsequent encounter for fracture with routine healing; S92.342D Displaced fracture of fourth metatarsal bone, left foot, subsequent encounter for fracture with routine healing
CPT/HCPCS: 73630; 99213

== ENCOUNTER 2018-12-18 22:14 | Inpatient (IN) | payer MEDICARE, MEDICAID | END 2018-12-23 18:58 | disposition other institution (70) | LOC: ICU 12-19 00:15 → 4TH 12-21 10:18 → ER 22:14 | PROC: 02HV33Z Insertion of Infusion Device into Superior Vena Cava, Percutaneous Approach (ICD-10-PCS; principal; 2018-12-21 14:38) | DX: E11.10 Type 2 diabetes mellitus with ketoacidosis without coma (principal); E86.0 Dehydration; E87.2 Acidosis; E87.1 Hypo-osmolality and hyponatremia; E78.00 Pure hypercholesterolemia, unspecified; E03.9 Hypothyroidism, unspecified; M54.9 Dorsalgia, unspecified; M19.91 Primary osteoarthritis, unspecified site; K21.9 Gastro-esophageal reflux disease without esophagitis; H40.9 Unspecified glaucoma; F41.9 Anxiety disorder, unspecified; F32.9 Major depressive disorder, single episode, unspecified; Z87.891 Personal history of nicotine dependence; Z79.4 Long term (current) use of insulin; Z91.19 Patient's noncompliance with other medical treatment and regimen ==

== ENCOUNTER 2019-01-18 05:32 | Outpatient (CLI) | payer MEDICARE, MEDICAID ==
[~2019-01-18] VITALS: Ht 154.9 cm; Wt 72.7 kg
[~2019-01-18 05:32] MED LIST changes: +CALC-6 PO; +CARI1.5C PO; +CELE100C84 PO; +ESTR0.62 PO; +INSU100V16; -LATA2.5D5 OP; +LATA2.5D5 OU; +METF-399 PO; +PANT40TA3 PO; +RANI150C4 PO; +SERT100T8 PO; +SUCR1TAB PO; +TIMO5DRO5 OU; +VENL75CA93 PO; +ZOLP5TAB7 PO
== END 2019-01-18 14:55 | disposition home or self-care (01) ==
LOC: PREOP 05:32
PROVIDERS: ATTEND Surgery
DX: Z01.818 Encounter for other preprocedural examination (principal)

== ENCOUNTER 2019-06-22 14:23 | Outpatient (RCR) | payer MEDICARE, MEDICAID ==
[~2019-06-22 14:23] MED LIST changes: -ESTR1TAB14 PO; +NFPREMP0.3 PO; +OMEP40CA27 PO; -OMEP40CA36 PO; +VITA-235 PO; -VITA-240 PO
== END 2019-06-23 | disposition home or self-care (01) ==
PROVIDERS: ATTEND Nurse Practitioner Community Health
DX: M25.511 Pain in right shoulder (principal); M54.2 Cervicalgia; M75.42 Impingement syndrome of left shoulder

== ENCOUNTER 2019-06-25 11:35 | Outpatient (RCR) | payer MEDICARE, MEDICAID ==
[2019-07-14] MEDS ORDERED: MELA3TAB52 PO (12:17)
[2019-07-14] MEDS ORDERED: MIRA25TA PO (12:17)
[2019-07-14] MEDS ORDERED: FERR-84 PO (12:17)
[2019-07-14] MEDS ORDERED: ASCO500C17 PO (12:18)
[2019-07-14] MEDS ORDERED: BREX2TAB PO (12:18)
== END 2019-09-23 | disposition home or self-care (01) ==
PROVIDERS: ATTEND Nurse Practitioner Community Health
DX: M25.511 Pain in right shoulder (principal); M54.2 Cervicalgia; M75.42 Impingement syndrome of left shoulder

== ENCOUNTER 2019-07-14 11:05 | Outpatient (CLI) | payer MEDICARE, MEDICAID ==
[~2019-07-14] VITALS: Ht 157 cm; Wt 83.6 kg
[2019-07-14] MEDS ORDERED: MELA3TAB52 PO (12:17)
[2019-07-14] MEDS ORDERED: MIRA25TA PO (12:17)
[2019-07-14] MEDS ORDERED: FERR-84 PO (12:17)
[2019-07-14] MEDS ORDERED: ASCO500C17 PO (12:18)
[2019-07-14] MEDS ORDERED: BREX2TAB PO (12:18)
== END 2019-07-14 12:20 | disposition home or self-care (01) ==
LOC: PREOP 11:05
PROVIDERS: ATTEND Surgery
DX: Z01.818 Encounter for other preprocedural examination (principal)

== ENCOUNTER → 2019-10-26 | Outpatient (CLI) | payer MEDICARE, MEDICAID ==
[~2019-10-26] MED LIST changes: +ASCO500C17 PO; +BREX2TAB PO; +FERR-84 PO; +MELA3TAB52 PO; +MIRA25TA PO
--- NOTE | 2019-10-26 16:54 | Diagnostic Imaging Report ---
INDICATION: Routine screening. COMPARISON: 02/22/2015 and 12/20/2013. TECHNIQUE: 2D and 3D bilateral screening mammography was performed with CAD. FINDINGS: Both breasts are heterogeneously dense, limiting the sensitivity of mammography. There are benign calcifications throughout both breasts. The overall parenchymal pattern appears to be stable. No mass or malignant appearing microcalcifications are seen. IMPRESSION: No mammographic features suspicious for malignancy are identified. ACR BI-RADS Category 2: Benign findings. Result letter will be mailed to the patient. Note: At least 10% of breast cancer is not imaged by mammography. Dictated by: Dictated on workstation # [id number]
== END ==
LOC: RAD 15:22
PROVIDERS: ATTEND Nurse Practitioner Community Health
DX: Z12.31 Encounter for screening mammogram for malignant neoplasm of breast (principal)
CPT/HCPCS: 77063; 77067

== ENCOUNTER 2020-08-03 05:31 | Outpatient (RCR) | payer MEDICARE, MEDICAID ==
[~2020-08-03] VITALS: Ht 157.5 cm; Wt 90.5 kg
[~2020-08-03 05:31] MED LIST changes: +ARIP2TAB20 PO; -CALC-6 PO; +CALC1TAB84 PO; +CANA100T PO; +CELE-63; +LATA2.5D19 OU; +MIRA50TA PO; -OXYC-471 PO; +OXYC1TAB11 PO; -PANT40TA3 PO; +PANT40TA52 PO; +SERT-414 PO; -SERT100T8 PO; -VITA-235 PO; +VITA-261 PO
== END 2020-08-03 09:05 | disposition home or self-care (01) ==
LOC: PREOP 05:31
PROVIDERS: ATTEND Surgery
DX: Z01.812 Encounter for preprocedural laboratory examination (principal); K21.9 Gastro-esophageal reflux disease without esophagitis; Z20.822 Contact with and (suspected) exposure to COVID-19
CPT/HCPCS: 87635

== ENCOUNTER 2020-08-07 10:53 | Day surgery (SDC) | payer MEDICARE, MEDICAID ==
[~2020-08-07] VITALS: Ht 157.5 cm; Wt 90.5 kg
[2020-08-07] MEDS ORDERED: LACTATED RINGERS 1,000 ML IV STA (10:54)
[2020-08-07] MEDS ORDERED: HURRICAINE EXT TUBE (BENZOCAINE) XX PRN (11:00)
[2020-08-07 11:16] VITALS: BP 132/79
[2020-08-07] MEDS ORDERED: LEVO112T55 PO (11:22)
--- NOTE | 2020-08-07 11:26 | Progress Note-Pre Operative ---
Pre-Operative Progress Note H&P Reviewed The H&P was reviewed, patient examined and no changes noted. Time Seen by Provider: 11:24 Date H&P Reviewed: August 07, 2020 Time H&P Reviewed: 11:24 Pre-Operative Diagnosis: Hx of Esophageal ulcer, chronic gastritis KENDALL DOW DO August 07, 2020 11:25
[2020-08-07] MEDS ORDERED: MIDAZOLAM 2 MG/2 ML (VERSED) VIAL ONE (11:53)
[2020-08-07] MEDS ORDERED: proPOfol 200 MG/20 ML (DIPRIVAN) VIAL IV ONE (11:53)
[2020-08-07 12:35] VITALS: BP 165/77
--- NOTE | 2020-08-07 12:37 | Progress Note-Post Operative ---
Post-Operative Progess Note Surgeon (s)/Cylinder Checker (s) Surgeon KENDALL DOW DO Cylinder Checker: none Pre-Operative Diagnosis Hx of Esophageal ulcer, chronic gastritis Post-Operative Diagnosis Gastritis Hiatal hernia Procedure & Operative Findings Date of Procedure 08/07/20 Procedure Performed/Findings EGD with bx Anesthesia Type IV sedation by VEHICLE AND EQUIPMENT CLEANER Estimated Blood Loss Estimated blood loss (mL): scant Specimens/Packing Specimens Removed antral bx GE jxn bx KENDALL DOW DO August 07, 2020 12:37
[2020-08-07 12:40] VITALS: BP 165/77
--- NOTE | 2020-08-07 12:42 | Endoscopy Discharge Instruct ---
Endo Procedure/Findings Findings 1.: Gastritis 2.: Hiatal Hernia Discharge Instructions - Activity: You might feel a little sleepy until tomorrow. This is due to the medicine you received to relax you. Until tomorrow, you should: NOT drive a car, operate machinery or power tools. NOT drink any alcoholic beverages. NOT make any important decisions or sign importortant papers. Do not return to work until tomorrow, unless otherwise instructed. Resume previous activities tomorrow. Diet: Start by taking liquids. If you tolerate liquids, advance to solid food. 1.: EGD in 3 years Notify Physician - If you experience excessive bleeding, unusual abdominal pain, fever, or chest pain, contact your doctor immediately. KENDALL DOW DO August 07, 2020 12:42
[2020-08-07 12:45] VITALS: BP 165/77
--- NOTE | 2020-08-07 12:49 | Anesthesia-General Post-Op ---
MAC Patient Condition Mental Status/LOC: Same as Preop Cardiovascular: Satisfactory Nausea/Vomiting: Absent Respiratory: Satisfactory Pain: Controlled Complications: Absent Post Op Complications Complications None Follow Up Care/Instructions Patient Instructions None needed. Anesthesiology Discharge Order Discharge Order Patient is doing well, no complaints, stable vital signs, no apparent adverse anesthesia problems. No complications reported per nursing. TRESA AMAYA CRNA August 07, 2020 12:49
[2020-08-07 13:10] VITALS: BP 165/77
--- NOTE | 2020-08-07 21:04 | OPERATIVE REPORT ---
DATE OF SERVICE: 08/07/2020 PREOPERATIVE DIAGNOSES: History of esophageal ulcer and chronic gastritis. POSTOPERATIVE DIAGNOSES: Gastritis, hiatal hernia. PROCEDURE: EGD with biopsy. SURGEON: Geovany Sauer DO SENIOR SOFTWARE ENGINEER: None. ANESTHESIA: IV sedation by the BIOCHEMIST. SPECIMEN: Biopsy from the antrum as well as biopsy from the GE junction. BLOOD LOSS: Scant. FLUIDS: Per anesthesia. POSTOPERATIVE CONDITION: Stable. INDICATION FOR PROCEDURE: The patient is a 64-year-old female who has had a history of esophageal ulcer and some chronic gastritis, needed a repeat EGD. FINDINGS: The patient had some mild gastritis and hiatal hernia as well as mild esophagitis. PROCEDURE NOTE: After informed consent was obtained, the patient was brought to the endoscopy suite, placed in bed in left lateral decubitus position. She was administered IV sedation by the BIOCHEMIST who then monitored her vitals the entire time, heart rate, blood pressure and pulse ox and the scope was inserted down the mouth through the esophagus into the stomach. On the way down, noted some mild esophagitis, took a picture, pushed into the stomach, pushed pass the antrum into the duodenum. Duodenum looked good. Pulled back and did a biopsy of antrum, then retroflexed the scope, saw hiatal hernia, took a picture of this and then pulled the scope into the GE junction, took another picture of the hiatal hernia and then did a biopsy of the GE junction. Pushed the scope back into the stomach, suctioned all the air out of the stomach and then pulled the scope up the esophagus, took some pictures in the esophagus. There were no ulcers and at this point pulled the scope up the esophagus and out the mouth. The patient tolerated the procedure, and recovered in endoscopy suite. Job ID: [id number] DocumentID: [id number] Dictated Date: 08/07/2020 14:27:00 Embedded Systems Engineer Date: 08/07/2020 21:04:28 Dictated By: GEOVANY SAUER DO
== END 2020-08-07 13:17 | disposition home or self-care (01) ==
LOC: ENDO 10:53
PROVIDERS: ATTEND Surgery
DX: K44.9 Diaphragmatic hernia without obstruction or gangrene (principal); K29.70 Gastritis, unspecified, without bleeding; K22.70 Barrett's esophagus without dysplasia; I10 Essential (primary) hypertension; F41.9 Anxiety disorder, unspecified; F32.9 Major depressive disorder, single episode, unspecified; M19.90 Unspecified osteoarthritis, unspecified site; E11.9 Type 2 diabetes mellitus without complications; K21.00 Gastro-esophageal reflux disease with esophagitis, without bleeding; E66.9 Obesity, unspecified; Z68.36 Body mass index [BMI] 36.0-36.9, adult; Z79.899 Other long term (current) drug therapy; Z79.84 Long term (current) use of oral hypoglycemic drugs; Z79.890 Hormone replacement therapy; Z87.891 Personal history of nicotine dependence; E78.00 Pure hypercholesterolemia, unspecified; Z87.19 Personal history of other diseases of the digestive system
CPT/HCPCS: 88305

== ENCOUNTER → 2020-11-24 | Outpatient (CLI) | payer MEDICARE, MEDICAID ==
[~2020-11-24] MED LIST changes: +LEVO112T55 PO; -OMEP40CA27 PO; +OMEP40CA6 PO
--- NOTE | 2020-11-27 09:03 | Diagnostic Imaging Report ---
INDICATION: Routine screening. Comparison is made with prior mammogram 10/26/2019 and 02/22/2015. 2-D and 3-D bilateral screening mammography was performed with CAD. Both breasts remain heterogeneously dense, limiting the sensitivity of mammography. There are benign calcifications scattered throughout both breasts. No mass or malignant-appearing microcalcifications are seen. Axillae are unremarkable. IMPRESSION: BI-RADS Category 2 No mammographic features suspicious for malignancy are identified. ACR BI-RADS Category 2: Benign findings. Result letter will be mailed to the patient. Note: At least 10% of breast cancer is not imaged by mammography. Dictated by: Dictated on workstation # [id number]
== END ==
LOC: RAD 11:16
PROVIDERS: ATTEND Nurse Practitioner Family
DX: Z12.31 Encounter for screening mammogram for malignant neoplasm of breast (principal)
CPT/HCPCS: 77063; 77067

== ENCOUNTER 2021-07-23 05:30 | Outpatient (CLI) | payer MEDICARE, MEDICAID ==
[~2021-07-23] VITALS: Ht 156 cm; Wt 91.2 kg
[2021-07-24] MEDS ORDERED: INSU100V5 SQ (13:55)
[2021-07-24] MEDS ORDERED: DIPH50CA PO (13:55)
[2021-07-24] MEDS ORDERED: FLUT9.9S NS (13:55)
== END 2021-07-24 14:08 | disposition home or self-care (01) ==
LOC: PREOP 05:30
PROVIDERS: ATTEND Obstetrics & Gynecology
DX: Z01.818 Encounter for other preprocedural examination (principal)

== ENCOUNTER 2021-07-30 05:57 | Day surgery (SDC) | payer MEDICARE, MEDICAID ==
[~2021-07-30] VITALS: Ht 155 cm; Wt 91.2 kg
[2021-07-30] VITALS (11 sets, daily range): BP systolic 108–159; BP diastolic 44–79
[~2021-07-30 05:57] MED LIST changes: +DIPH50CA PO; +FLUT9.9S NS; +INSU100V5 SQ
[2021-07-30] MEDS: LACTATED RINGERS 1,000 ML IV PRN ×2 (06:30→08:43)
[2021-07-30 07:00] LABS: BASOPHILS # (AUTO) 0.1 10^3/uL (0.0-0.1); BASOPHILS % (AUTO) 1 % (0-10); EOSINOPHILS # (AUTO) 0.5 10^3/uL (0.0-0.3); EOSINOPHILS % (AUTO) 4 % (0-10); HEMATOCRIT 36 % (35-52); HEMOGLOBIN 11.8 g/dL (11.5-16.0); LYMPHOCYTES # (AUTO) 2.1 10^3/uL (1.0-4.0); LYMPHOCYTES % (AUTO) 20 % (12-44); MEAN CORPUSCULAR HEMOGLOBIN 29 pg (25-34); MEAN CORPUSCULAR HGB CONC 33 g/dL (32-36); MEAN CORPUSCULAR VOLUME 88 fL (80-99); MEAN PLATELET VOLUME 11.7 fL (9.0-12.2); MONOCYTES # (AUTO) 0.7 10^3/uL (0.0-1.0); MONOCYTES % (AUTO) 7 % (0-12); NEUTROPHILS # (AUTO) 7.5 10^3/uL (1.8-7.8); NEUTROPHILS % (AUTO) 69 % (42-75); PLATELET COUNT 313 10^3/uL (130-400); WHITE BLOOD COUNT 10.9 10^3/uL (4.3-11.0)
[2021-07-30] MEDS ORDERED: proPOfol 200 MG/20 ML (DIPRIVAN) VIAL IV ONE (07:00)
[2021-07-30] MEDS ORDERED: ONDANSETRON 4 MG/2 ML (SDV) Z0FRAN ONE (07:00)
[2021-07-30] MEDS ORDERED: LIDOCAINE PF 2% 5 ML (XYLOCAINE) VIAL ONE (07:00)
[2021-07-30] MEDS ORDERED: SUCCINYLCHOLINE INJ 100 MG/5 ML SYR/VIAL ONE (07:00)
[2021-07-30] MEDS ORDERED: MIDAZOLAM 2 MG/2 ML (VERSED) VIAL ONE (07:01)
[2021-07-30] MEDS ORDERED: fentaNYL INJ 100 MCG/2 ML AMP ONE (07:01)
--- NOTE | 2021-07-30 07:20 | Progress Note-Pre Operative ---
Pre-Operative Progress Note H&P Reviewed The H&P was reviewed, patient examined and no changes noted. Date Seen by Provider: Jul 30, 2021 Time Seen by Provider: 07:10 Date H&P Reviewed: Jul 30, 2021 Time H&P Reviewed: 07:20 Pre-Operative Diagnosis: PMB, Thickened endometrium MADDI MONTES DO Jul 30, 2021 07:20
--- NOTE | 2021-07-30 07:23 | Discharge Inst-Women's Service ---
Discharge Inst-Women's Serv Depart Medication/Instructions New, Converted or Re-Newed RX: Transmitted to Pharmacy Problems Reviewed?: Yes Consults/Follow Up Additional Follow Up: Yes Orders/Referrals Dr. Montes 2 weeks Activity Activity: Activity as Tolerated Driving Instructions: No Driving for 1 Week NO SMOKING: NO SMOKING Nothing Inside Vagina: No Douching, No [place], No Tampons Diet Discharge Diet: No Restrictions Symptoms to Report to : Bleeding Excessive, Pain Increased, Fever Over 101 Degrees F, Vaginal Bleeding Increase, Questions/Concerns For Any Problems or Questions: Contact Your Physician MADDI MONTES DO Jul 30, 2021 07:23
[2021-07-30] MEDS ORDERED: ONDANSETRON 4 MG/2 ML (SDV) Z0FRAN IVP PRN ×2 (07:30→08:15)
[2021-07-30] MEDS ORDERED: KETOROLAC 15 MG/ML VIAL IVP PRN ×2 (07:30)
[2021-07-30] MEDS ORDERED: KETOROLAC 30 MG/ML VIAL IVP ONE (07:30)
[2021-07-30] MEDS ORDERED: D5 LR IV SOLUTION 1,000 ML IV SCH (07:30)
[2021-07-30 07:38] LABS: INR 0.8 (0.8-1.4); PROTHROMBIN TIME PATIENT 11.6 SEC (12.2-14.7)
[2021-07-30] MEDS ORDERED: ROCURONIUM 10 MG/ML 5 ML SYRINGE IV ONE (07:40)
[2021-07-30] MEDS ORDERED: BUPIVACAINE 0.25% 10 ML (SENSORCAINE) VIAL ONE (07:44)
[2021-07-30] MEDS ORDERED: NEOSTIGMINE 3 MG/3 ML VIAL ONE (07:53)
[2021-07-30] MEDS ORDERED: GLYCOPYRROLATE 0.2 MG/ML (ROBINUL) 2 ML VIAL ONE (07:53)
[2021-07-30] MEDS ORDERED: SEVOFLURANE (ULTANE) 15 ML INHAL SOLN ONE (07:56)
[2021-07-30] MEDS ORDERED: KETOROLAC 30 MG/ML VIAL ONE (07:56)
[2021-07-30] MEDS ORDERED: HYDROmorphone 2 MG/ML VIAL (DILAUDID) IV ONE (08:15)
[2021-07-30] MEDS ORDERED: PROMETHAZINE INJ 25 MG/ML (PHENERGAN) AMP IVP ONE (08:15)
[2021-07-30] MEDS ORDERED: morphine INJ 10 MG/ML 1ML (SYR OR VIAL) IVP ONE (08:15)
--- NOTE | 2021-07-30 10:02 | Anesthesia-General Post-Op ---
General Patient Condition Mental Status/LOC: Same as Preop Cardiovascular: Satisfactory Nausea/Vomiting: Absent Respiratory: Satisfactory Pain: Controlled Complications: Absent Post Op Complications Complications None Follow Up Care/Instructions Patient Instructions None needed. Anesthesia/Patient Condition Patient Condition Patient is doing well, no complaints, stable vital signs, no apparent adverse anesthesia problems. No complications reported per nursing. BELLE ROSAS CRNA Jul 30, 2021 10:02
--- NOTE | 2021-07-30 11:51 | OPERATIVE REPORT ---
DATE OF SERVICE: 07/30/2021 PREOPERATIVE DIAGNOSES: 1. A 65-year-old female with postmenopausal bleeding. 2. Thickened endometrium on ultrasound. POSTOPERATIVE DIAGNOSES: 1. A 65-year-old female with postmenopausal bleeding. 2. Thickened endometrium on ultrasound. PROCEDURE: D and C. SURGEON: Maddi Montes DO ANESTHESIA: LMA general. ESTIMATED BLOOD LOSS: Minimal. URINE OUTPUT: 50 mL drained at the start of procedure. FLUIDS: 800 mL lactated Ringer's solution. FINDINGS: Grossly normal appearing external genitalia, narrow vaginal opening and introitus, small to moderate amount of endometrial curettings collected. SPECIMEN SENT: Endometrial curettings. INDICATIONS FOR PROCEDURE: This patient is a 65-year-old female is the patient has consulted in my office for concerns of postmenopausal bleeding. After a timeout was performed and replacement therapy as well as thickened endometrium on ultrasound, I discussed with the patient indications for biopsy. She did not feel she could tolerate this in the office; therefore, she was set up for D and C. Risks of the procedure were discussed with the patient in detail and after all of her questions were answered, consent was obtained preoperatively, the patient was taken to the operating room. OPERATIVE REPORT IN DETAIL: Once in the operating room, anesthesia was found to be adequate, placed in dorsal lithotomy position, prepped and draped in normal sterile fashion. Timeout was performed. The bladder was first drained using straight catheterization. A narrow Graves speculum was inserted into the patient's vagina, which allows me to visualize the cervix, which was grasped at 12 o'clock position using a single tooth tenaculum. I therefore performed paracervical block at 3 and 9 o'clock positions on the cervix. Care was taken to aspirate for injecting 5 mL of 0.25% Marcaine injected into each site. I then gently sound the uterine cavity, was found to be approximately 7 cm. I then gently dilated the cervix using Hanks dilators to maximum dilatation approximately 8 mm, at which point I performed a gentle curettage of the endometrium. This tissue was collected and sent as endometrial curettings, after which there was no active bleeding noted from any of my dissection planes. I released the tenaculum and there is no active bleeding noted from any of my puncture sites. All instruments were removed from the patient's vagina. The patient tolerated the procedure well and was taken to recovery area in stable condition. Lap and sponge counts were correct at the end of the procedure. Instrument counts correct as well. Job ID: [id number] DocumentID: [id number] Dictated Date: 07/30/2021 08:34:38 Getterer Date: 07/30/2021 11:50:45 Dictated By: MADDI MONTES DO
== END 2021-07-30 10:47 | disposition home or self-care (01) ==
LOC: SDC 05:57
PROVIDERS: ATTEND Obstetrics & Gynecology
DX: N95.0 Postmenopausal bleeding (principal); R93.89 Abnormal findings on diagnostic imaging of other specified body structures; G47.33 Obstructive sleep apnea (adult) (pediatric); K21.9 Gastro-esophageal reflux disease without esophagitis; Z99.89 Dependence on other enabling machines and devices; Z87.891 Personal history of nicotine dependence
CPT/HCPCS: 36415; 85025; 85610; 86850; 86900; 86901; 87081; 88305

== ENCOUNTER 2021-08-13 05:38 | Outpatient (CLI) | payer MEDICARE, MEDICAID ==
[~2021-08-13] VITALS: Ht 154.9 cm; Wt 93.0 kg
[2021-08-13] MEDS ORDERED: DIPH50CA PO (12:28)
[2021-08-13] MEDS ORDERED: ACET-93 PO (12:28)
[2021-08-13] MEDS ORDERED: DULO30CA49 PO (12:28)
== END 2021-08-13 12:54 ==
LOC: PREOP 05:38
PROVIDERS: ATTEND Surgery
DX: Z01.818 Encounter for other preprocedural examination (principal); Z87.19 Personal history of other diseases of the digestive system

== ENCOUNTER 2021-08-20 10:44 | Day surgery (SDC) | payer MEDICARE, MEDICAID ==
[~2021-08-20] VITALS: Ht 154.9 cm; Wt 93.0 kg
[~2021-08-20 10:44] MED LIST changes: +ACET-93 PO; +DULO30CA49 PO
[2021-08-20] MEDS ORDERED: LACTATED RINGERS 1,000 ML IV ONE (11:11)
--- NOTE | 2021-08-20 11:34 | Progress Note-Pre Operative ---
Pre-Operative Progress Note H&P Reviewed The H&P was reviewed, patient examined and no changes noted. Time Seen by Provider: 11:33 Date H&P Reviewed: August 20, 2021 Time H&P Reviewed: 11:33 Pre-Operative Diagnosis: Hx of [place] KENDALL DOW DO August 20, 2021 11:34
[2021-08-20] MEDS ORDERED: LACTATED RINGERS 1,000 ML IV STA (11:40)
[2021-08-20] MEDS ORDERED: HURRICAINE EXT TUBE (BENZOCAINE) XX PRN (11:45)
[2021-08-20 11:49] VITALS: BP 112/49
[2021-08-20] MEDS ORDERED: HURRICAINE EXT TUBE (BENZOCAINE) ONE (11:58)
[2021-08-20] MEDS ORDERED: MIDAZOLAM 2 MG/2 ML (VERSED) VIAL ONE (12:00)
[2021-08-20] MEDS ORDERED: PROPOFOL INJECTION 50 ML IV ONE (12:00)
[2021-08-20 12:18] VITALS: BP 86/42
[2021-08-20 12:23] VITALS: BP 88/43
--- NOTE | 2021-08-20 12:26 | Progress Note-Post Operative ---
Post-Operative Progess Note Surgeon (s)/Brand Attendant (s) Surgeon KENDALL DOW DO Brand Attendant: none Pre-Operative Diagnosis Hx of [place] Post-Operative Diagnosis Esophagitis Hiatal hernia Procedure & Operative Findings Date of Procedure 08/20/21 Procedure Performed/Findings EGD with bx PROCEDURE NOTE: After informed consent was obtained, the patient was brought to the endoscopy suite, placed in bed in left lateral decubitus position. She was administered IV sedation by the WASTE SALVAGER who then monitored vitals the entire time, heart rate, blood pressure and pulse ox and the scope was inserted down the mouth through the esophagus into the stomach. On the way down, noted some mild esophagitis, took a picture, pushed into the stomach, pushed past the antrum into the duodenum. Duodenum looked good. Pulled back and did a biopsy of antrum, then retroflexed the scope, saw 1-2 cm hiatal hernia, took a picture of this and then pulled the scope into the GE junction, took another picture of the hiatal hernia and then did a biopsy of the GE junction. Pushed the scope back into the stomach, suctioned all the air out of the stomach. At this point pulled the scope up the esophagus and out the mouth. The patient tolerated the procedure, and she recovered in endoscopy suite. Anesthesia Type IV sedation by WASTE SALVAGER Estimated Blood Loss Estimated blood loss (mL): scant Specimens/Packing Specimens Removed antral bx GE jxn bx KENDALL DOW DO August 20, 2021 12:26
--- NOTE | 2021-08-20 12:28 | Endoscopy Discharge Instruct ---
Endo Procedure/Findings Findings 1.: Hiatal Hernia 2.: Other Findings (mild esophagitis) Discharge Instructions - Activity: You might feel a little sleepy until tomorrow. This is due to the medicine you received to relax you. Until tomorrow, you should: NOT drive a car, operate machinery or power tools. NOT drink any alcoholic beverages. NOT make any important decisions or sign importortant papers. Do not return to work until tomorrow, unless otherwise instructed. Resume previous activities tomorrow. Diet: Start by taking liquids. If you tolerate liquids, advance to solid food. 1.: EGD in 3 years Notify Physician - If you experience excessive bleeding, unusual abdominal pain, fever, or chest pain, contact your doctor immediately. KENDALL DOW DO August 20, 2021 12:28
[2021-08-20 12:30] VITALS: BP 92/46
[2021-08-20 13:00] VITALS: BP 96/56
--- NOTE | 2021-08-20 13:11 | Anesthesia-General Post-Op ---
MAC Patient Condition Mental Status/LOC: Same as Preop Cardiovascular: Satisfactory Nausea/Vomiting: Absent Respiratory: Satisfactory Pain: Controlled Complications: Absent Post Op Complications Complications None Follow Up Care/Instructions Patient Instructions None needed. Anesthesiology Discharge Order Discharge Order Patient is doing well, no complaints, stable vital signs, no apparent adverse anesthesia problems. No complications reported per nursing. TRESA AMAYA CRNA August 20, 2021 13:11
== END 2021-08-20 13:10 | disposition home or self-care (01) ==
LOC: ENDO 10:44
PROVIDERS: ATTEND Surgery
DX: K21.00 Gastro-esophageal reflux disease with esophagitis, without bleeding (principal); K44.9 Diaphragmatic hernia without obstruction or gangrene; E66.9 Obesity, unspecified; Z68.38 Body mass index [BMI] 38.0-38.9, adult; G47.33 Obstructive sleep apnea (adult) (pediatric); Z87.891 Personal history of nicotine dependence; Z79.899 Other long term (current) drug therapy; Z79.4 Long term (current) use of insulin

== ENCOUNTER 2021-12-16 21:00 | Inpatient (IN) | payer MEDICARE, MEDICAID ==
[~2021-12-16] VITALS: Ht 154 cm; Wt 91.3 kg
[~2021-12-16 21:00] MED LIST changes: +DIPH-809 PO; -DIPH50CA PO
[2021-12-16] MEDS ORDERED: ACETAMINOPHEN 500 MG TAB (TYLENOL) PO ONE ×2 (21:15→22:30)
[2021-12-16] MEDS ORDERED: ONDANSETRON 4 MG/2 ML (SDV) Z0FRAN IVP ONE (21:15)
[2021-12-16] MEDS ORDERED: NS IV 1000 ML 1,000 ML IV SCH (21:15)
--- NOTE | 2021-12-16 21:18 | ED General ---
General Stated Complaint: HIGH BLOOD SUGAR,KWON Source of Information: Patient, EMS Exam Limitations: No Limitations History of Present Illness Date Seen by Provider: Dec 16, 2021 Time Seen by Provider: 21:02 Initial Comments Patient to the ER by EMS from home with chief complaint her blood glucose is read high all day. She says she changed out her insulin pump delivery tubing as well as reservoir early this morning. EMS states after glucometer read high. She has a implanted glucometer which also read high all day. She tried giving more insulin through her pump. She is a very difficult historian struggling to answer questions. She states that she just hurts all over and she was nauseated. Allergies and Home Medications Allergies Coded Allergies: iodine (Verified Allergy, Unknown, VOMITING EXTREME, 07/24/21) shrimp (Verified Allergy, Unknown, EXTREME VOMITING, 07/24/21) cephalexin (Verified Adverse Reaction, Mild, DIARRHEA, 07/24/21) Patient Home Medication List Home Medication List Reviewed: Yes Acetaminophen (Acetaminophen) 500 Mg Tablet, 500 MG PO DAILY, (Reported) Entered as Reported by: DANA LAZCANO on 08/13/21 1228 Celecoxib (Celecoxib) 100 Mg Capsule, 200 MG PO BID, (Reported) Entered as Reported by: CAMERON MALHOTRA on 03/16/20 1033 Diphenhydramine HCl (Sleep Aid) 50 Mg Capsule, 100 MG PO HS, (Reported) Entered as Reported by: ERICKA NICHOLSON on 07/24/21 1355 Diphenhydramine HCl (Sleep Aid) 50 Mg Capsule, 100 MG PO DAILY, (Reported) Entered as Reported by: DANA LAZCANO on 08/13/21 1228 Duloxetine HCl (Duloxetine HCl) 30 Mg Capsule.dr, 30 MG PO DAILY, (Reported) Entered as Reported by: DANA LAZCANO on 08/13/21 1228 Insulin Aspart (Novolog) 100 Unit/1 Ml Susp, PER INSULIN PUMP, (Reported) Entered as Reported by: CHRISTIANO RODRIGUEZ on 12/21/18 1144 Insulin Determir (Levemir) Unknown Strength Soln, Unknown Dose SQ HS, (Reported) Entered as Reported by: ERICKA NICHOLSON on 07/24/21 1355 Latanoprost (Xalatan) 2.5 Ml Drops, 1 DROP OU HS, (Reported) Entered as Reported by: CAMERON MALHOTRA on 03/16/20 1027 Levothyroxine Sodium (Levothyroxine Sodium) 112 Mcg Tablet, 125 MCG PO DAILY, (Reported) Entered as Reported by: CHELA RIVERA on 08/07/20 1122 Lovastatin (Lovastatin) 40 Mg Tablet, 40 MG PO HS, (Reported) Entered as Reported by: CHRISTIANO RODRIGUEZ on 12/21/18 1144 Mirabegron (Myrbetriq) 50 Mg Tab.er.24h, 50 MG PO DAILY, (Reported) Entered as Reported by: CAMERON MALHOTRA on 03/16/20 1027 Pantoprazole Sodium (Pantoprazole Sodium) 40 Mg Tablet.dr, 40 MG PO BID, (Reported) Entered as Reported by: CAMERON MALHOTRA on 03/16/20 1027 Sertraline HCl (Sertraline HCl) 100 Mg Tablet, 150 MG PO BID, (Reported) Entered as Reported by: CHRISTIANO RODRIGUEZ on 12/21/18 1144 Timolol Maleate (Timolol Maleate 0.5%) 5 Ml Drops, 1 DROP OU DAILY, (Reported) Entered as Reported by: CHRISTIANO RODRIGUEZ on 12/21/18 1144 Review of Systems Review of Systems Constitutional: see HPI; No chills, No diaphoresis; malaise EENTM: No ear discharge, No ear pain Respiratory: No cough, No short of breath Cardiovascular: No edema, No palpitations Gastrointestinal: No abdominal pain, No constipation, No diarrhea; nausea; No vomiting Genitourinary: No discharge, No dysuria Musculoskeletal: No back pain, No joint pain All Other Systems Reviewed Negative Unless Noted: Yes Past Sflvmfz-Cyfjat-Uuhitf Hx Patient Social History Tobacco Use?: No Use of E-Cig and/or Vaping dev: No Immunizations Up To Date Tetanus Booster (TDap): Less than 5yrs Seasonal Allergies Seasonal Allergies: Yes Past Medical History Surgeries: Yes (OVARIAN CYST, DENTAL, MOLE REMOVED, TOENAIL, FX ARM, shoulder sx) Appendectomy, Gallbladder Respiratory: Yes Sleep Apnea Currently Using CPAP: Yes Currently Using BIPAP: No Cardiac: Yes High Cholesterol Neurological: Yes Headaches /Migraines Reproductive Disorders: No Female Reproductive Disorders: Menstrual Problems, Ovarian Cyst 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 Sexually Transmitted Disease: No HIV/AIDS: No Genitourinary: Yes Bladder Infection, Kidney Stones, UTI-Chronic Gastrointestinal: Yes Gastroesophageal Reflux, Chronic Constipation, Polyps, Gall Bladder Disease Musculoskeletal: Yes (RIGHT WRIST) Arthritis, Fractures Endocrine: Yes (INSULIN PUMP) Diabetes, Insulin dep, Hypothyroidsim HEENT: Yes (READING GLASSES) Glaucoma Loss of Vision: Bilateral Hearing Impairment: Denies Cancer: No Psychosocial: Yes Sleep Difficulties, Anxiety, Depression Integumentary: Yes (EAR SKIN TAG/MOLE: HAIRLINE) Blood Disorders: No Adverse Reaction/Blood Tranf: No (N/A) Family Medical History Cancer 19 FATHER ( of stomache cancer) Family history: Arthritis G8 BROTHER (bad back) Family history: Gastrointestinal disease 19 MOTHER ( with c-diff) No Pertinent Family Hx Physical Exam Vital Signs Vital Signs - First Documented 12/16/21 21:05 Temp 37.2 Pulse 90 Resp 16 B/P (MAP) 147/79 (101) Pulse Ox 98 O2 Delivery Room Air Capillary Refill : Height, Weight, BMI Height: 5'2.00" Weight: 175lbs. 0.9oz. 79.617656ny; 38.75 BMI Method:Stated General Appearance: Chronically ill, Moderate Distress Eyes: Bilateral Eye Normal Inspection, Bilateral Eye PERRL, Bilateral Eye EOMI HEENT: PERRL/EOMI, Pharynx Normal; No Moist Mucous Membranes, No Pale Conjunctivae (L) Neck: Full Range of Motion, Normal Inspection, Non Tender Respiratory: Chest Non Tender, Lungs Clear, Normal Breath Sounds, No Accessory Muscle Use, No Respiratory Distress Cardiovascular: Regular Rate, Rhythm, Normal Peripheral Pulses Gastrointestinal: Normal Bowel Sounds, No Organomegaly, Non Tender, Soft Extremity: Normal Capillary Refill, Normal Inspection, No Pedal Edema Neurologic/Psychiatric: Alert, No Motor/Sensory Deficits, helpdesk 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 II-XII Norm as Tested, Other (Oriented to self) Skin: Normal Color, Warm/Dry Progress/Results/Core Measures Suspected Sepsis SIRS Temperature: Pulse: Respiratory Rate: Laboratory Tests 12/16/21 21:10: White Blood Count 11.4H Blood Pressure / Mean: Laboratory Tests 12/16/21 21:10: Creatinine 1.48H, Platelet Count 307, Total Bilirubin 1.1H Results/Orders Lab Results Laboratory Tests Test 12/16/21 21:10 12/16/21 21:25 12/16/21 21:36 Range/Units White Blood Count 11.4 H 4.3-11.0 10^3/uL Red Blood Count 4.18 3.80-5.11 10^6/uL Hemoglobin 11.9 11.5-16.0 g/dL Hematocrit 35 35-52 % Mean Corpuscular Volume 83 80-99 fL Mean Corpuscular Hemoglobin 29 25-34 pg Mean Corpuscular Hemoglobin Concent 34 32-36 g/dL Red Cell Distribution Width 13.2 10.0-14.5 % Platelet Count 307 130-400 10^3/uL Mean Platelet Volume 11.8 9.0-12.2 fL Immature Granulocyte % (Auto) 0 % Neutrophils (%) (Auto) 77 H 42-75 % Lymphocytes (%) (Auto) 17 12-44 % Monocytes (%) (Auto) 5 0-12 % Eosinophils (%) (Auto) 0 0-10 % Basophils (%) (Auto) 0 0-10 % Neutrophils # (Auto) 8.8 H 1.8-7.8 10^3/uL Lymphocytes # (Auto) 2.0 1.0-4.0 10^3/uL Monocytes # (Auto) 0.6 0.0-1.0 10^3/uL Eosinophils # (Auto) 0.1 0.0-0.3 10^3/uL Basophils # (Auto) 0.1 0.0-0.1 10^3/uL Immature Granulocyte # (Auto) 0.0 0.0-0.1 10^3/uL Sodium Level 123 *L 135-145 MMOL/L Potassium Level 4.4 3.6-5.0 MMOL/L Chloride Level 92 L 98-107 MMOL/L Carbon Dioxide Level 13 L 21-32 MMOL/L Anion Gap 18 H 5-14 MMOL/L Blood Urea Nitrogen 19 H 7-18 MG/DL Creatinine 1.48 H 0.60-1.30 MG/DL Estimat Glomerular Filtration Rate 39 BUN/Creatinine Ratio 13 Glucose Level 724 *H 70-105 MG/DL Calcium Level 9.3 8.5-10.1 MG/DL Corrected Calcium 9.3 8.5-10.1 MG/DL Magnesium Level 1.9 1.6-2.4 MG/DL Total Bilirubin 1.1 H 0.1-1.0 MG/DL Aspartate Amino Transf (AST/SGOT) 13 5-34 U/L Alanine Aminotransferase (ALT/SGPT) 21 0-55 U/L Alkaline Phosphatase 173 H 40-136 U/L C-Reactive Protein High Sensitivity 6.52 H 0.00-0.50 MG/DL Total Protein 7.3 6.4-8.2 GM/DL Albumin 4.0 3.2-4.5 GM/DL Serum Alcohol < 10 <10 MG/DL Urine Color YELLOW Urine Clarity CLEAR Urine pH 5.5 5-9 Urine Specific [place]itten <=1.005 1.016-1.022 Urine Protein NEGATIVE NEGATIVE Urine Glucose (UA) 3+ H NEGATIVE Urine Ketones TRACE H NEGATIVE Urine Nitrite NEGATIVE NEGATIVE Urine Bilirubin NEGATIVE NEGATIVE Urine Urobilinogen 0.2 < = 1.0 MG/DL Urine Leukocyte Esterase NEGATIVE NEGATIVE Urine RBC (Auto) TRACE-L H NEGATIVE Urine RBC NONE /HPF Urine WBC NONE /HPF Urine Crystals NONE /LPF Urine Bacteria NEGATIVE /HPF Urine Casts NONE /LPF Urine Mucus NEGATIVE /LPF Urine Culture Indicated NO Urine Opiates Screen NEGATIVE NEGATIVE Urine Oxycodone Screen NEGATIVE NEGATIVE Urine Methadone Screen NEGATIVE NEGATIVE Urine Propoxyphene Screen NEGATIVE NEGATIVE Urine Barbiturates Screen NEGATIVE NEGATIVE Ur Tricyclic Antidepressants Screen NEGATIVE NEGATIVE Urine Phencyclidine Screen NEGATIVE NEGATIVE Urine Amphetamines Screen NEGATIVE NEGATIVE Urine Methamphetamines Screen NEGATIVE NEGATIVE Urine Benzodiazepines Screen NEGATIVE NEGATIVE Urine Cocaine Screen NEGATIVE NEGATIVE Urine Cannabinoids Screen NEGATIVE NEGATIVE Influenza Type A (RT-PCR) Not Detected Not Detecte Influenza Type B (RT-PCR) Not Detected Not Detecte SARS-CoV-2 RNA (RT-PCR) Not Detected Not Detecte My Orders Orders - SHAY DAUGHERTY Ed Iv/Invasive Line Start (12/16/21 21:11) Ns Iv 1000 Ml (Sodium Chloride 0.9%) (12/16/21 21:15) Ua Culture If Indicated (12/16/21 21:11) Accucheck Stat ONCE (12/16/21 21:11) Cbc With Automated Diff (12/16/21 21:11) Comprehensive Metabolic Panel (12/16/21 21:11) Hs C Reactive Protein (12/16/21 21:11) Magnesium (12/16/21 21:11) Chest 1 View, Ap/Pa Only (12/16/21 21:11) Ondansetron Injection (Zofran Injectio (12/16/21 21:15) Acetaminophen Tablet (Tylenol Tablet) (12/16/21 21:15) Covid 19 Inhouse Test (12/16/21 21:11) Influenza A And B By Pcr (12/16/21 21:11) Drug Screen Stat (Urine) (12/16/21 21:18) Alcohol (12/16/21 21:18) Insulin (Regular) Human (Novolin R (Per (12/16/21 22:30) Acetaminophen Tablet (Tylenol Tablet) (12/16/21 22:30) Medications Given in ED Current Medications Medications Dose Ordered Sig/Sukumar Route Start Time Stop Time Status Last Admin Dose Admin Acetaminophen 1,000 mg ONCE ONCE PO 12/16/21 21:15 12/16/21 21:16 DC 12/16/21 21:53 1,000 MG Insulin Human Regular 5 unit ONCE ONCE IV 12/16/21 22:30 12/16/21 22:33 DC 12/16/21 22:56 5 UNIT Ondansetron HCl 8 mg ONCE ONCE IVP 12/16/21 21:15 12/16/21 21:16 DC 12/16/21 21:53 8 MG Vital Signs/I&O 12/16/21 21:05 Temp 37.2 Pulse 90 Resp 16 B/P (MAP) 147/79 (101) Pulse Ox 98 O2 Delivery Room Air 12/17/21 00:00 Intake Total 1500 ml Balance 1500 ml Capillary Refill : Progress Note #1: Time: 21:25 Progress Note Urine looking for ketones, labs looking for DKA. We paused her insulin pump. The reservoir said that it was down to only 20 units left at 4:00 in the afternoon. Its not really clear whether she change the reservoir out or not. The patient is a very difficult historian likely due to delirium. We will get some labs, chest x-ray, COVID and flu. Ondansetron for her nausea. Progress Note #2: Time: 23:00 Progress Note Patient still having a headache despite the Tylenol. Because of her creatinine we will not be giving any NSAIDs right at the moment. We will continue her IV fluid bolus and give her 5 units of IV insulin. Diagnostic Imaging Diagonstic Imaging: Xray Plain Films/CT/US/NM/MRI: chest Comments [facility] [place], [place] NAME: FREDI TAPIA [facility] REC#: [id number] PT STATUS: REG ER : 1955 PHYSICIAN: SHAY DAUGHERTY MD ADMIT DATE: 12/16/21/ER Signed Date of Exam:12/16/21 CHEST 1 VIEW, AP/PA ONLY INDICATION: Shortness of breath. EXAMINATION: Frontal chest was obtained at 9:36 p.m. COMPARISON: 03/15/2020. Heart and mediastinal silhouette are normal in appearance. The lungs are clear. There is no pneumothorax or pleural fluid. IMPRESSION: Negative chest. Dictated by: Dictated on workstation # [id number] Dict: 12/16/212158 Trans: 12/16/212221 PJE [id number] Interpreted by: MARÍA PEDRO MD Electronically signed by: MARÍA PEDRO MD 12/16/212221 Reviewed: Reviewed by Me Departure Communication (Admissions) Time/Spoke to Admitting Phy: 23:10 Discussed the case with Dr. Sotomayor and she agrees to accept the patient to the ICU. Time/Spoke to Consulting Phy: 23:[address] Garza agrees to consult on the patient. Impression Primary Impression: DKA (diabetic ketoacidosis) Qualified Codes: E13.10 - Other specified diabetes mellitus with ketoacidosis without coma Additional Impression: Delirium due to another medical condition Disposition: ADMITTED INPATIENT Condition: Stable Admissions Decision to Admit Reason: Admit from ER (General) Decision to Admit/Date: Dec 16, 2021 Time/Decision to Admit Time: 23:10 Departure-Patient Inst. Referrals: [facility] (PCP) Primary Care Physician MIKE COVINGTON APRN (Family) Primary Care Physician SHAY DAUGHERTY Dec 16, 2021 21:18
[2021-12-16 21:21] LABS: BASOPHILS # (AUTO) 0.1 10^3/uL (0.0-0.1); BASOPHILS % (AUTO) 0 % (0-10); EOSINOPHILS # (AUTO) 0.1 10^3/uL (0.0-0.3); EOSINOPHILS % (AUTO) 0 % (0-10); HEMATOCRIT 35 % (35-52); HEMOGLOBIN 11.9 g/dL (11.5-16.0); LYMPHOCYTES % (AUTO) 17 % (12-44); MEAN CORPUSCULAR HEMOGLOBIN 29 pg (25-34); MEAN CORPUSCULAR HGB CONC 34 g/dL (32-36); MEAN CORPUSCULAR VOLUME 83 fL (80-99); MEAN PLATELET VOLUME 11.8 fL (9.0-12.2); MONOCYTES # (AUTO) 0.6 10^3/uL (0.0-1.0); MONOCYTES % (AUTO) 5 % (0-12); NEUTROPHILS # (AUTO) 8.8 10^3/uL (1.8-7.8); NEUTROPHILS % (AUTO) 77 % (42-75); PLATELET COUNT 307 10^3/uL (130-400); WHITE BLOOD COUNT 11.4 10^3/uL (4.3-11.0)
[2021-12-16 21:39] LABS: BILIRUBIN,TOTAL 1.1 MG/DL (0.1-1.0); CALCIUM 9.3 MG/DL (8.5-10.1); POTASSIUM 4.4 MMOL/L (3.6-5.0)
[2021-12-16 21:41] LABS: CREATININE SERUM 1.48 MG/DL (0.60-1.30)
[2021-12-16 21:44] LABS: MAGNESIUM 1.9 MG/DL (1.6-2.4)
[2021-12-16 21:49] LABS: BILIRUBIN,URINE NEGATIVE (NEGATIVE); CLARITY,URINE CLEAR; COLOR,URINE YELLOW; GLUCOSE, URINE (UA) 3+ (NEGATIVE); KETONES,URINE TRACE (NEGATIVE); LEUKOCYTE ESTERASE ,URINE NEGATIVE (NEGATIVE); NITRITE,URINE NEGATIVE (NEGATIVE); PH,URINE 5.5 (5-9); PROTEIN,URINE NEGATIVE (NEGATIVE)
[2021-12-16 21:52] LABS: AMPHETAMINE SCREEN, URINE NEGATIVE (NEGATIVE); BACTERIA,URINE NEGATIVE /HPF; BENZODIAZEPINES SCREEN URINE NEGATIVE (NEGATIVE); CANNABINOID SCREEN, URINE NEGATIVE (NEGATIVE); COCAINE SCREEN URINE NEGATIVE (NEGATIVE); OPIATE SCREEN URINE NEGATIVE (NEGATIVE)
[2021-12-16 21:53] LABS: BARBITURATE SCREEN URINE NEGATIVE (NEGATIVE); METHADONE STAT NEGATIVE (NEGATIVE); OXYCODONE STAT NEGATIVE (NEGATIVE); PROPOXYPHENE STAT NEGATIVE (NEGATIVE); TRICYCLIC ANTIDEPRESSANTS SCRE NEGATIVE (NEGATIVE)
[2021-12-16 22:03] LABS: TOTAL PROTEIN 7.3 GM/DL (6.4-8.2)
--- NOTE | 2021-12-16 22:06 | Diagnostic Imaging Report ---
INDICATION: Shortness of breath. EXAMINATION: Frontal chest was obtained at 9:36 p.m. COMPARISON: 03/15/2020. Heart and mediastinal silhouette are normal in appearance. The lungs are clear. There is no pneumothorax or pleural fluid. IMPRESSION: Negative chest. Dictated by: Dictated on workstation # [id number]
[2021-12-16] MEDS ORDERED: inSUlin (REGULAR) HUMAN 1 UNIT/0.01 ML (CHARGE PER UNIT) IV ONE (22:30)
[2021-12-17] MEDS ORDERED: D5W 1000 ML IV SOLUTION 1,000 ML ONE (01:00)
[2021-12-17] MEDS ORDERED: 1/2 NS IV SOLUTION 1,000 ML IV ONE (01:00)
[2021-12-17] MEDS ORDERED: POTASSIUM CL 10MEQ/50ML IVPB 50 ML IV ONE (01:00)
[2021-12-17] MEDS ORDERED: NS IV 1000 ML 1,000 ML IV SCH (01:00)
[2021-12-17] MEDS ORDERED: ONDANSETRON 4 MG/2 ML (SDV) Z0FRAN IV PRN (01:15)
[2021-12-17] MEDS ORDERED: ACETAMINOPHEN 650 MG SUPP (TYLENOL) PR PRN (01:15)
[2021-12-17] MEDS: POTASSIUM CL 10MEQ/50ML IVPB 50 ML IV SCH ×3 (01:16→09:44)
[2021-12-17] MEDS: 1/2 NS IV SOLUTION 1,000 ML IV SCH ×4 (01:18→10:52)
[2021-12-17 01:27] LABS: HEMATOCRIT 32 % (35-52); MEAN CORPUSCULAR HEMOGLOBIN 29 pg (25-34); MEAN CORPUSCULAR HGB CONC 35 g/dL (32-36); MEAN CORPUSCULAR VOLUME 83 fL (80-99); MEAN PLATELET VOLUME 11.2 fL (9.0-12.2); PLATELET COUNT 292 10^3/uL (130-400); WHITE BLOOD COUNT 11.4 10^3/uL (4.3-11.0)
[2021-12-17] MEDS: ACETAMINOPHEN 325 MG TABLET PO PRN ×2 (03:13→17:51)
[2021-12-17 04:53] LABS: BASOPHILS # (AUTO) 0.1 10^3/uL (0.0-0.1); BASOPHILS % (AUTO) 1 % (0-10); EOSINOPHILS # (AUTO) 0.1 10^3/uL (0.0-0.3); EOSINOPHILS % (AUTO) 1 % (0-10); HEMATOCRIT 30 % (35-52); HEMOGLOBIN 10.3 g/dL (11.5-16.0); LYMPHOCYTES # (AUTO) 2.1 10^3/uL (1.0-4.0); LYMPHOCYTES % (AUTO) 22 % (12-44); MEAN CORPUSCULAR HEMOGLOBIN 29 pg (25-34); MEAN CORPUSCULAR HGB CONC 34 g/dL (32-36); MEAN CORPUSCULAR VOLUME 83 fL (80-99); MEAN PLATELET VOLUME 11.2 fL (9.0-12.2); MONOCYTES # (AUTO) 0.7 10^3/uL (0.0-1.0); MONOCYTES % (AUTO) 8 % (0-12); NEUTROPHILS # (AUTO) 6.5 10^3/uL (1.8-7.8); NEUTROPHILS % (AUTO) 69 % (42-75); PLATELET COUNT 263 10^3/uL (130-400); WHITE BLOOD COUNT 9.4 10^3/uL (4.3-11.0)
[2021-12-17 05:06] LABS: ALBUMIN 3.3 GM/DL (3.2-4.5); POTASSIUM 3.8 MMOL/L (3.6-5.0)
[2021-12-17 05:07] LABS: CALCIUM 8.1 MG/DL (8.5-10.1)
[2021-12-17 05:08] LABS: TOTAL PROTEIN 5.8 GM/DL (6.4-8.2)
[2021-12-17 05:10] LABS: BILIRUBIN,TOTAL 0.5 MG/DL (0.1-1.0)
[2021-12-17 05:12] LABS: CREATININE SERUM 0.92 MG/DL (0.60-1.30)
[2021-12-17 05:15] LABS: MAGNESIUM 1.7 MG/DL (1.6-2.4)
[2021-12-17] MEDS: D5 1/2 NS 1000 ML IV SOLUTION 1,000 ML IV SCH ×2 (06:00→09:27)
[2021-12-17 08:28] LABS: BILIRUBIN,URINE NEGATIVE (NEGATIVE); CLARITY,URINE CLEAR; COLOR,URINE YELLOW; GLUCOSE, URINE (UA) 3+ (NEGATIVE); KETONES,URINE NEGATIVE (NEGATIVE); LEUKOCYTE ESTERASE ,URINE 3+ (NEGATIVE); NITRITE,URINE NEGATIVE (NEGATIVE); PH,URINE 5.5 (5-9); PROTEIN,URINE NEGATIVE (NEGATIVE)
[2021-12-17 08:35] LABS: BACTERIA,URINE MODERATE /HPF
--- NOTE | 2021-12-17 09:44 | Tele-ICU Consult ---
History of Present Illness History of Present Illness Date Seen by Provider: Dec 17, 2021 Time Seen by Provider: 09:44 Date of Admission (Tele-ICU Physician , consultation) Available chart/ vitals / labs / Images reviewed H&P is from ER notes Patient's information available about PMH, Shx, Fhx allergy reviewed inEMR. ROS as per chart and RN report Now in ICU, hemodynamically stable Video assessment done using teleICU camera, rest of exam as per RN Discussed with RN. Consultants: Hospital course: A/P DKA ( insulin pump is off now *Insulin drip most likely to stop soon - decrerase hydration. *Tx Gastroparesis ABIMBOLA - dehydration, hypotension - resolved UTI - start po abx Lines : periph , (Central Line Necessity Reviewed) Gordillo voiding OG: Nutrition: Analgesia: Anxiety/ delirium VTE Prophylaxis: ambulate Stress Ulcer Prophylaxis: na , resume po Glycemic Control: Plans in collaboration with bedside consultants and IM MDs. Discussed with RN to reach out if any questions or concerns A total of 20 minutes of critical care time was devoted to this patient today, required to treat and/or prevent further deterioration of critical care condition ( as above ) . Allergies and Home Medications Allergies Coded Allergies: iodine (Verified Allergy, Unknown, VOMITING EXTREME, 07/24/21) shrimp (Verified Allergy, Unknown, EXTREME VOMITING, 07/24/21) cephalexin (Verified Adverse Reaction, Mild, DIARRHEA, 07/24/21) Home Medications Acetaminophen 500 Mg Tablet, 500 MG PO DAILY, (Reported) Celecoxib 100 Mg Capsule, 200 MG PO BID, (Reported) TAKES 2 (100MG) CAPS Diphenhydramine HCl 50 Mg Capsule, 100 MG PO HS, (Reported) Diphenhydramine HCl 50 Mg Capsule, 100 MG PO DAILY, (Reported) Duloxetine HCl 30 Mg Capsule.dr, 30 MG PO DAILY, (Reported) Insulin Aspart 100 Unit/1 Ml Susp, PER INSULIN PUMP, (Reported) Insulin Determir Unknown Strength Soln, Unknown Dose SQ HS, (Reported) IF INSULIN PUMP FAILS Latanoprost 2.5 Ml Drops, 1 DROP OU HS, (Reported) Levothyroxine Sodium 112 Mcg Tablet, 125 MCG PO DAILY, (Reported) Lovastatin 40 Mg Tablet, 40 MG PO HS, (Reported) Mirabegron 50 Mg Tab.er.24h, 50 MG PO DAILY, (Reported) Pantoprazole Sodium 40 Mg Tablet.dr, 40 MG PO BID, (Reported) Sertraline HCl 100 Mg Tablet, 150 MG PO BID, (Reported) Timolol Maleate 5 Ml Drops, 1 DROP OU DAILY, (Reported) Past Medical/Social/Family Hx Patient Social History Tobacco Use?: No Smoking Status: Unknown if Ever Smoked Use of E-Cig and/or Vaping dev: No Substance use?: No Alcohol Use?: No Pt stated abuse/neglect: No Immunizations Up To Date Influenza Vaccine Up-to-Date: No; Not Current Tetanus Booster (TDap): Unknown Hepatitis A: No Hepatitis B: No TB Skin Test: None Date of Pneumonia Vaccine: May 22, 2011 Current Status status: No Advance Directives: No Communicates: Verbally Primary Language: Kyrgyz Preferred Spoken Language: Kyrgyz Is interpretation needed?: No Implanted or Applied Medical D: Insulin pump Review of Systems Constitutional: see HPI Focused Exam Height, Weight, BMI Height: 5'2.00" Weight: 175lbs. 0.9oz. 79.920491zd; 37.82 BMI Method:Stated Exam Exam Patient acknowledged, consented, and participated in this virtual visit which was conducted using real time audio/video Vital Signs Date Time Temp Pulse Resp B/P (MAP) Pulse Ox O2 Delivery O2 Flow Rate FiO2 12/17/21 09:00 81 11 145/67 (93) 96 12/17/21 08:00 83 11 155/76 (102) 96 12/17/21 07:00 81 12/17/21 07:00 73 12 137/56 (83) 99 12/17/21 06:01 37.1 12/17/21 06:00 78 10 131/40 (70) 93 12/17/21 05:00 94 26 121/52 (75) 97 12/17/21 04:00 Room Air 12/17/21 04:00 79 14 113/42 (65) 99 12/17/21 03:00 78 29 127/50 (75) 97 12/17/21 02:10 Room Air 12/17/21 02:00 78 18 131/47 (75) 96 12/17/21 02:00 Room Air 12/17/21 01:04 85 12 143/54 98 Room Air 12/17/21 01:01 37.9 12/17/21 01:00 90 12 155/66 (95) 100 12/17/21 01:00 98 12/16/21 21:05 37.2 90 16 147/79 (101) 98 Room Air I & O 12/17/21 07:00 Intake Total 2560 ml Balance 2560 ml Height & Weight Height: 5'2.00" Weight: 175lbs. 0.9oz. 79.481301vz; 37.82 BMI Method:Stated General Appearance: No Apparent Distress, Chronically ill, Moderate Distress HEENT: PERRL/EOMI, Pharynx Normal; No Moist Mucous Membranes, No Pale Conjunctivae (L) Neck: Full Range of Motion, Normal Inspection, Non Tender Respiratory: Chest Non Tender, Lungs Clear, Normal Breath Sounds, No Accessory Muscle Use, No Respiratory Distress Cardiovascular: Regular Rate, Rhythm, Normal Peripheral Pulses Capillary Refill: Less Than 3 Seconds Extremity: Normal Capillary Refill, Normal Inspection, No Pedal Edema Neurologic/Psychiatric: Alert, No Motor/Sensory Deficits, cigar 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
--- NOTE | 2021-12-17 10:15 | History & Physical ---
HPI History of Present Illness: 66 yo female came to ER due to blood sugar too high to read, feeling confused and not well starting yesterday. She was tired but couldn't sleep. She states her blood sugar is usually "all over the place". She tried taking extra doses of insulin yesterday but it didn't help at all. She uses an insulin pump, states one was recalled, and she got the same one back and has used that one for about 5 years. Has had 2 admits for DKA in 2018 and 2019. She isn't sure her basal rate. She uses 5 units for small meals and 7 units for big meals. Reviewed insulin pump in room which shoed last 7 days, average 53.725 units/day, basal 34.175 units, bolus 19.575 units. Is to have total hysterectomy 12/31 related to postmenopausal bleeding, states she had a cervical polyp removed that had some kind of concerning cells. Source: patient Date seen by provider: Dec 17, 2021 Time Seen by Provider: 10:11 Attending Physician [facility] PCP Admitting Physician: Karley Sotomayor DO Attending Physician: Obdulia Grigsby MD Consult Date of Admission Dec 16, 2021 at 23:10 Home Medications Home Medications Reviewed patient Home Medication Reconciliation performed by pharmacy medication reconciliations photovoltaic technician and/or nursing. Patients Allergies have been reviewed. Allergies Coded Allergies: iodine (Verified Allergy, Unknown, VOMITING EXTREME, 07/24/21) shrimp (Verified Allergy, Unknown, EXTREME VOMITING, 07/24/21) cephalexin (Verified Adverse Reaction, Mild, DIARRHEA, 07/24/21) [id number]-[id number] Hx Patient Social History Drug of Choice: None Smoking Status: Former Smoker Former smoker/When Quit: Apr 07, 1993 2nd Hand Smoke Exposure: Yes Recent Hopitalizations: Yes (07/30/2021 - Biopsy for uterus/cervix) Alcohol Use?: Yes (rare, yearly) Have you traveled recently?: No Immunizations Up To Date Tetanus Booster (TDap): Less than 5yrs Influenza Vaccine Up-to-Date: No; Not Current Past Medical History PMHx: Diabetes Depression Hypothyroidism Osteoarthritis SurgHx: Cholecystectomy Appendectomy Ovarian cyst removal Family Medical History Significant Family History: No Pertinent Family Hx Family History: Cancer 19 FATHER ( of stomache cancer) Family history: Arthritis G8 BROTHER (bad back) Family history: Gastrointestinal disease 19 MOTHER ( with c-diff) Review of Systems ([facility]) Constitutional: chills, fever Respiratory: cough ("little bit yesterday"); No short of breath Cardiovascular: chest pain (had left chest/arm/jaw pain about a week ago and a few days ago, random occurance not with exercise) Gastrointestinal: abdominal pain (today), diarrhea (2 days ago, severe, liquid, non-bloody), nausea Genitourinary: No dysuria; frequency (chronic) Musculoskeletal: muscle pain (leg pain, taking magnesium and potassium helps) Psychiatric/Neurological: Headache, Paresthesia (diagnosed with neuropathy in feet) Reviewed Test Results Reviewed Test Results Lab Laboratory Tests Test 12/16/21 21:10 12/16/21 21:25 12/16/21 21:36 12/17/21 00:50 Range/Units White Blood Count 11.4 H 4.3-11.0 10^3/uL Red Blood Count 4.18 3.80-5.11 10^6/uL Hemoglobin 11.9 11.5-16.0 g/dL Hematocrit 35 35-52 % Mean Corpuscular Volume 83 80-99 fL Mean Corpuscular Hemoglobin 29 25-34 pg Mean Corpuscular Hemoglobin Concent 34 32-36 g/dL Red Cell Distribution Width 13.2 10.0-14.5 % Platelet Count 307 130-400 10^3/uL Mean Platelet Volume 11.8 9.0-12.2 fL Immature Granulocyte % (Auto) 0 % Neutrophils (%) (Auto) 77 H 42-75 % Lymphocytes (%) (Auto) 17 12-44 % Monocytes (%) (Auto) 5 0-12 % Eosinophils (%) (Auto) 0 0-10 % Basophils (%) (Auto) 0 0-10 % Neutrophils # (Auto) 8.8 H 1.8-7.8 10^3/uL Lymphocytes # (Auto) 2.0 1.0-4.0 10^3/uL Monocytes # (Auto) 0.6 0.0-1.0 10^3/uL Eosinophils # (Auto) 0.1 0.0-0.3 10^3/uL Basophils # (Auto) 0.1 0.0-0.1 10^3/uL Immature Granulocyte # (Auto) 0.0 0.0-0.1 10^3/uL Sodium Level 123 *L 135-145 MMOL/L Potassium Level 4.4 3.6-5.0 MMOL/L Chloride Level 92 L 98-107 MMOL/L Carbon Dioxide Level 13 L 21-32 MMOL/L Anion Gap 18 H 5-14 MMOL/L Blood Urea Nitrogen 19 H 7-18 MG/DL Creatinine 1.48 H 0.60-1.30 MG/DL Estimat Glomerular Filtration Rate 39 BUN/Creatinine Ratio 13 Glucose Level 724 *H 70-105 MG/DL Calcium Level 9.3 8.5-10.1 MG/DL Corrected Calcium 9.3 8.5-10.1 MG/DL Magnesium Level 1.9 1.6-2.4 MG/DL Total Bilirubin 1.1 H 0.1-1.0 MG/DL Aspartate Amino Transf (AST/SGOT) 13 5-34 U/L Alanine Aminotransferase (ALT/SGPT) 21 0-55 U/L Alkaline Phosphatase 173 H 40-136 U/L C-Reactive Protein High Sensitivity 6.52 H 0.00-0.50 MG/DL Total Protein 7.3 6.4-8.2 GM/DL Albumin 4.0 3.2-4.5 GM/DL Serum Alcohol < 10 <10 MG/DL Urine Color YELLOW Urine Clarity CLEAR Urine pH 5.5 5-9 Urine Specific [place] <=1.005 1.016-1.022 Urine Protein NEGATIVE NEGATIVE Urine Glucose (UA) 3+ H NEGATIVE Urine Ketones TRACE H NEGATIVE Urine Nitrite NEGATIVE NEGATIVE Urine Bilirubin NEGATIVE NEGATIVE Urine Urobilinogen 0.2 < = 1.0 MG/DL Urine Leukocyte Esterase NEGATIVE NEGATIVE Urine RBC (Auto) TRACE-L H NEGATIVE Urine RBC NONE /HPF Urine WBC NONE /HPF Urine Crystals NONE /LPF Urine Bacteria NEGATIVE /HPF Urine Casts NONE /LPF Urine Mucus NEGATIVE /LPF Urine Culture Indicated NO Urine Opiates Screen NEGATIVE NEGATIVE Urine Oxycodone Screen NEGATIVE NEGATIVE Urine Methadone Screen NEGATIVE NEGATIVE Urine Propoxyphene Screen NEGATIVE NEGATIVE Urine Barbiturates Screen NEGATIVE NEGATIVE Ur Tricyclic Antidepressants Screen NEGATIVE NEGATIVE Urine Phencyclidine Screen NEGATIVE NEGATIVE Urine Amphetamines Screen NEGATIVE NEGATIVE Urine Methamphetamines Screen NEGATIVE NEGATIVE Urine Benzodiazepines Screen NEGATIVE NEGATIVE Urine Cocaine Screen NEGATIVE NEGATIVE Urine Cannabinoids Screen NEGATIVE NEGATIVE Influenza Type A (RT-PCR) Not Detected Not Detecte Influenza Type B (RT-PCR) Not Detected Not Detecte SARS-CoV-2 RNA (RT-PCR) Not Detected Not Detecte Glucometer 367 H 70-110 MG/DL Test 12/17/21 01:16 12/17/21 02:16 12/17/21 03:17 12/17/21 04:15 Range/Units White Blood Count 11.4 H 9.4 4.3-11.0 10^3/uL Red Blood Count 3.80 3.62 L 3.80-5.11 10^6/uL Hemoglobin 11.0 L 10.3 L 11.5-16.0 g/dL Hematocrit 32 L 30 L 35-52 % Mean Corpuscular Volume 83 83 80-99 fL Mean Corpuscular Hemoglobin 29 29 25-34 pg Mean Corpuscular Hemoglobin Concent 35 34 32-36 g/dL Red Cell Distribution Width 13.0 13.1 10.0-14.5 % Platelet Count 292 263 130-400 10^3/uL Mean Platelet Volume 11.2 11.2 9.0-12.2 fL Beta-Hydroxybutyrate (Chem panel) 0.94 H 0.00-0.27 MMOL/L Glucometer 301 H 236 H 70-110 MG/DL Immature Granulocyte % (Auto) 0 % Neutrophils (%) (Auto) 69 42-75 % Lymphocytes (%) (Auto) 22 12-44 % Monocytes (%) (Auto) 8 0-12 % Eosinophils (%) (Auto) 1 0-10 % Basophils (%) (Auto) 1 0-10 % Neutrophils # (Auto) 6.5 1.8-7.8 10^3/uL Lymphocytes # (Auto) 2.1 1.0-4.0 10^3/uL Monocytes # (Auto) 0.7 0.0-1.0 10^3/uL Eosinophils # (Auto) 0.1 0.0-0.3 10^3/uL Basophils # (Auto) 0.1 0.0-0.1 10^3/uL Immature Granulocyte # (Auto) 0.0 0.0-0.1 10^3/uL Sodium Level 136 135-145 MMOL/L Potassium Level 3.8 3.6-5.0 MMOL/L Chloride Level 106 98-107 MMOL/L Carbon Dioxide Level 18 L 21-32 MMOL/L Anion Gap 12 5-14 MMOL/L Blood Urea Nitrogen 12 7-18 MG/DL Creatinine 0.92 0.60-1.30 MG/DL Estimat Glomerular Filtration Rate 70 BUN/Creatinine Ratio 13 Glucose Level 224 H 70-105 MG/DL Calcium Level 8.1 L 8.5-10.1 MG/DL Corrected Calcium 8.7 8.5-10.1 MG/DL Phosphorus Level 2.0 L 2.3-4.7 MG/DL Magnesium Level 1.7 1.6-2.4 MG/DL Total Bilirubin 0.5 0.1-1.0 MG/DL Aspartate Amino Transf (AST/SGOT) 9 5-34 U/L Alanine Aminotransferase (ALT/SGPT) 16 0-55 U/L Alkaline Phosphatase 123 40-136 U/L Total Protein 5.8 L 6.4-8.2 GM/DL Albumin 3.3 3.2-4.5 GM/DL Test 12/17/21 04:16 12/17/21 05:19 12/17/21 06:15 12/17/21 07:10 Range/Units Glucometer 211 H 166 H 184 H 201 H 70-110 MG/DL Test 12/17/21 08:15 12/17/21 08:19 12/17/21 09:23 12/17/21 09:50 Range/Units Urine Color YELLOW Urine Clarity CLEAR Urine pH 5.5 5-9 Urine Specific [place] <=1.005 1.016-1.022 Urine Protein NEGATIVE NEGATIVE Urine Glucose (UA) 3+ H NEGATIVE Urine Ketones NEGATIVE NEGATIVE Urine Nitrite NEGATIVE NEGATIVE Urine Bilirubin NEGATIVE NEGATIVE Urine Urobilinogen 0.2 < = 1.0 MG/DL Urine Leukocyte Esterase 3+ H NEGATIVE Urine RBC (Auto) 1+ H NEGATIVE Urine RBC 2-5 H /HPF Urine WBC 10-25 H /HPF Urine Crystals NONE /LPF Urine Bacteria MODERATE H /HPF Urine Casts NONE /LPF Urine Mucus NEGATIVE /LPF Urine Culture Indicated YES Glucometer 201 H 231 H 70-110 MG/DL Sodium Level 137 135-145 MMOL/L Potassium Level 3.7 3.6-5.0 MMOL/L Chloride Level 110 H 98-107 MMOL/L Carbon Dioxide Level 19 L 21-32 MMOL/L Anion Gap 8 5-14 MMOL/L Blood Urea Nitrogen 8 7-18 MG/DL Creatinine 0.98 0.60-1.30 MG/DL Estimat Glomerular Filtration Rate 64 BUN/Creatinine Ratio 8 Glucose Level 282 H 70-105 MG/DL Calcium Level 8.3 L 8.5-10.1 MG/DL Radiology CXR 12/16/21: no acute abnormalities Physical Exam-([facility]) Physical Exam Vital Signs VS - Last 72 Hours, by Label 12/16/21 12/17/21 12/17/21 12/17/21 21:05 01:00 01:00 01:01 Temp 37.2 37.9 Pulse 90 98 90 Resp 16 12 B/P (MAP) 147/79 (101) 155/66 (95) Pulse Ox 98 100 O2 Delivery Room Air 12/17/21 12/17/21 12/17/21 12/17/21 01:04 02:00 02:00 02:10 Pulse 85 78 Resp 12 18 B/P (MAP) 143/54 131/47 (75) Pulse Ox 98 96 O2 Delivery Room Air Room Air Room Air 12/17/21 12/17/21 12/17/21 12/17/21 03:00 04:00 04:00 05:00 Pulse 78 79 94 Resp 29 14 26 B/P (MAP) 127/50 (75) 113/42 (65) 121/52 (75) Pulse Ox 97 99 97 O2 Delivery Room Air 12/17/21 12/17/21 12/17/21 12/17/21 06:00 06:01 07:00 07:00 Temp 37.1 Pulse 78 73 81 Resp 10 12 B/P (MAP) 131/40 (70) 137/56 (83) Pulse Ox 93 99 12/17/21 12/17/21 12/17/21 12/17/21 08:00 08:15 09:00 10:00 Pulse 83 81 75 Resp 11 11 16 B/P (MAP) 155/76 (102) 145/67 (93) 126/51 (76) Pulse Ox 96 96 94 O2 Delivery Room Air 12/17/21 12/17/21 12/17/21 12/17/21 11:00 12:00 12:16 12:20 Temp 36.7 Pulse 85 93 Resp 18 21 B/P (MAP) 140/70 (93) 149/63 (91) Pulse Ox 97 99 O2 Delivery Room Air 12/17/21 12/17/21 12/17/21 12/17/21 12:54 13:00 13:00 15:47 Temp 36.8 Pulse 81 75 Resp 13 B/P (MAP) 116/40 (65) Pulse Ox 99 O2 Delivery Room Air 12/17/21 12/17/21 12/17/21 12/18/21 16:00 19:55 20:00 00:02 Temp 36.5 36.3 36.8 Pulse 88 72 96 Resp 18 19 20 B/P (MAP) 124/60 (81) 121/58 (79) 135/65 (88) Pulse Ox 95 98 97 O2 Delivery Room Air Room Air Room Air Room Air 12/18/21 12/18/21 03:48 07:38 Temp 36.8 36.4 Pulse 85 82 Resp 18 16 B/P (MAP) 154/75 (101) 145/66 (92) Pulse Ox 99 97 O2 Delivery Room Air Room Air Capillary Refill : Less Than 3 Seconds General Appearance: WD/WN, no apparent distress Respiratory: lungs clear, normal breath sounds Cardiovascular: regular rate, rhythm, no murmur Gastrointestinal: normal bowel sounds, soft, tenderness Extremities: no pedal edema Neurologic/Psychiatric: alert, normal mood/affect Skin: normal color, warm/dry Assessment/Plan Assessment/Plan Admission Status: Inpatient Order (span 2 midnights) Reason for Inpatient Admission: DKA (1) DKA (diabetic ketoacidosis) Status: Resolved Assessment & Plan: Resolved overnight with insulin drip, will resume long acting insulin and stop drip, is tolerating diet. Likely transfer to floor today. Qualifiers: Qualified Codes: E13.10 - Other specified diabetes mellitus with k etoacidosis without coma (2) Acute kidney injury Status: Resolved Assessment & Plan: Secondary to DKA/hypovolemia, resolved with IVF and insulin. (3) Delirium due to another medical condition Status: Resolved Assessment & Plan: Alert and appropriate mental status this morning. (4) Hyperlipemia Status: Chronic (5) Hypothyroidism Status: Chronic (6) Reflux esophagitis Status: Chronic (7) DVT prophylaxis Status: Acute Assessment & Plan: Enoxaparin OBDULIA GRIGSBY MD Dec 17, 2021 10:15
[2021-12-17] MEDS: NITROFURANTOIN 50 MG (MACRODANTIN) CAP PO SCH ×3 (10:19→23:14)
[2021-12-17 10:23] LABS: CALCIUM 8.3 MG/DL (8.5-10.1); CREATININE SERUM 0.98 MG/DL (0.60-1.30); POTASSIUM 3.7 MMOL/L (3.6-5.0)
[2021-12-17] MEDS ORDERED: inSUlin ASPART (NovoLOG) 1 UNIT/0.01 ML (CHARGE PER UNIT) SC SCH (11:00)
[2021-12-17] MEDS: inSUlin ASPART (NovoLOG) 1 UNIT/0.01 ML (CHARGE PER UNIT) SC SCH ×4 (12:12→20:58)
[2021-12-17] MEDS: ENOXAPARIN 40 MG/0.4 ML (LOVENOX) SYR SQ SCH (14:03)
[2021-12-17] MEDS ORDERED: INSU100V42 SC (14:19)
[2021-12-17] MEDS ORDERED: CELE-63 PO (14:19)
[2021-12-17] MEDS ORDERED: LEVO125T6 PO (14:19)
[2021-12-17] MEDS ORDERED: MAGN400T39 PO (14:20)
[2021-12-17] MEDS ORDERED: POTA2TAB15 PO (14:20)
[2021-12-17] MEDS ORDERED: diphenhydrAMINE 25 MG TAB (BENADRYL) PO PRN (21:45)
[2021-12-17] MEDS: LATANOPROST 0.005% (XALATAN) OPHTH SOLN 2.5 ML OU SCH (23:14)
[2021-12-17] MEDS: PANTOPRAZOLE 40 MG (PROTONIX) TAB PO SCH (23:14)
[2021-12-18 05:27] LABS: BASOPHILS % (AUTO) 1 % (0-10); EOSINOPHILS # (AUTO) 0.2 10^3/uL (0.0-0.3); EOSINOPHILS % (AUTO) 5 % (0-10); HEMATOCRIT 33 % (35-52); HEMOGLOBIN 10.8 g/dL (11.5-16.0); LYMPHOCYTES # (AUTO) 1.7 10^3/uL (1.0-4.0); LYMPHOCYTES % (AUTO) 32 % (12-44); MEAN CORPUSCULAR HEMOGLOBIN 29 pg (25-34); MEAN CORPUSCULAR HGB CONC 33 g/dL (32-36); MEAN CORPUSCULAR VOLUME 88 fL (80-99); MEAN PLATELET VOLUME 11.2 fL (9.0-12.2); MONOCYTES # (AUTO) 0.4 10^3/uL (0.0-1.0); MONOCYTES % (AUTO) 7 % (0-12); NEUTROPHILS # (AUTO) 2.9 10^3/uL (1.8-7.8); NEUTROPHILS % (AUTO) 55 % (42-75); PLATELET COUNT 226 10^3/uL (130-400); WHITE BLOOD COUNT 5.2 10^3/uL (4.3-11.0)
[2021-12-18] MEDS: NITROFURANTOIN 50 MG (MACRODANTIN) CAP PO SCH ×3 (05:32→18:28)
[2021-12-18] MEDS: inSUlin ASPART (NovoLOG) 1 UNIT/0.01 ML (CHARGE PER UNIT) SC SCH ×7 (05:39→19:40)
[2021-12-18 05:52] LABS: ALBUMIN 3.4 GM/DL (3.2-4.5); POTASSIUM 4.2 MMOL/L (3.6-5.0)
[2021-12-18 05:53] LABS: CALCIUM 8.8 MG/DL (8.5-10.1)
[2021-12-18 05:54] LABS: TOTAL PROTEIN 6.1 GM/DL (6.4-8.2)
[2021-12-18 05:56] LABS: BILIRUBIN,TOTAL 0.2 MG/DL (0.1-1.0)
[2021-12-18 05:58] LABS: CREATININE SERUM 0.91 MG/DL (0.60-1.30); PHOSPHORUS 4.1 MG/DL (2.3-4.7)
[2021-12-18 06:01] LABS: MAGNESIUM 1.6 MG/DL (1.6-2.4)
[2021-12-18] MEDS ORDERED: LEVOTHYROXINE 125 MCG (LEVOTHROID) TABLET PO SCH (07:00)
[2021-12-18 07:38] VITALS: BP 145/66
[2021-12-18] MEDS ORDERED: NITR100C10 PO (07:39)
[2021-12-18] MEDS ORDERED: MIRABEGRON 25 MG TAB (MYRBETRIQ) PO SCH (08:00)
[2021-12-18] MEDS: CELECOXIB 100 MG (CeleBREX) CAP PO SCH ×2 (08:17→19:40)
[2021-12-18] MEDS: PANTOPRAZOLE 40 MG (PROTONIX) TAB PO SCH ×2 (08:18→19:40)
[2021-12-18] MEDS ORDERED: TIMOLOL MALEATE 0.5% 5 ML (TIMOPTIC) BTL OU SCH (09:00)
[2021-12-18] MEDS ORDERED: POTASSIUM GLUCONATE 500 MG PO SCH (09:00)
[2021-12-18] MEDS ORDERED: DULoxetine 30 MG (CYMBALTA) CAP PO SCH (09:00)
[2021-12-18 11:20] VITALS: BP 141/62
--- NOTE | 2021-12-18 11:26 | Discharge Summary ---
Discharge Summary Hospital Course Problems/Diagnosis: (1) DKA (diabetic ketoacidosis) Status: Resolved Resolution Date/Time: 12/17/21 @ 13:50 Assessment & Plan: Resolved overnight with insulin drip, resumed long acting insulin and stop drip, is tolerating diet. Total insulin daily dose off of drip was 55 units which is similar to baseline with pump, so resumed previous pump settings at d/c. Qualifiers: Qualified Codes: E13.10 - Other specified diabetes mellitus with ketoacidosis without coma (2) Acute kidney injury Status: Resolved Resolution Date/Time: 12/17/21 @ 13:50 Assessment & Plan: Secondary to DKA/hypovolemia, resolved with IVF and insulin. (3) Delirium due to another medical condition Status: Resolved Resolution Date/Time: 12/17/21 @ 13:50 Assessment & Plan: Alert and appropriate mental status this morning. (4) Hyperlipemia Status: Chronic (5) Hypothyroidism Status: Chronic (6) Reflux esophagitis Status: Chronic (7) UTI (urinary tract infection) Status: Acute Assessment & Plan: E coli, sensitivity pending, discharged on Macrobid. Hospital Course Date of Admission: Dec 16, 2021 at 23:10 Admission Diagnosis : Family Physician/Provider: Dereje Evangelista Aprn Date of Discharge: 12/18/21 Discharge Diagnosis: See problem list Hospital Course: See problem list Labs and Pending Lab Test: Laboratory Tests 12/17/21 15:28: Glucometer 226H 12/17/21 20:13: Glucometer 242H 12/18/21 05:19: White Blood Count 5.2, Red Blood Count 3.75L, Hemoglobin 10.8L, Hematocrit 33L, Mean Corpuscular Volume 88, Mean Corpuscular Hemoglobin 29, Mean Corpuscular Hemoglobin Concent 33, Red Cell Distribution Width 13.7, Platelet Count 226, Mean Platelet Volume 11.2, Immature Granulocyte % (Auto) 0, Neutrophils (%) (Auto) 55, Lymphocytes (%) (Auto) 32, Monocytes (%) (Auto) 7, Eosinophils (%) (Auto) 5, Basophils (%) (Auto) 1, Neutrophils # (Auto) 2.9, Lymphocytes # (Auto) 1.7, Monocytes # (Auto) 0.4, Eosinophils # (Auto) 0.2, Basophils # (Auto) 0.0, Immature Granulocyte # (Auto) 0.0, Sodium Level 139, Potassium Level 4.2, Chloride Level 107, Carbon Dioxide Level 20L, Anion Gap 12, Blood Urea Nitrogen 6L, Creatinine 0.91, Estimat Glomerular Filtration Rate 70, BUN/Creatinine Ratio 7, Glucose Level 282H, Calcium Level 8.8, Corrected Calcium 9.3, Phosphorus Level 4.1, Magnesium Level 1.6, Total Bilirubin 0.2, Aspartate Amino Transf (AST/SGOT) 13, Alanine Aminotransferase (ALT/SGPT) 17, Alkaline Phosphatase 115, Total Protein 6.1L, Albumin 3.4, Beta-Hydroxybutyrate (Chem panel) 0.07 12/18/21 05:35: Glucometer 251H 12/18/21 10:55: Glucometer 322H Microbiology 12/17/21 Urine Culture - Preliminary, Resulted Probable E.coli Mixed Bacterial Danielle 12/17/21 MRSA Screen - Final, Complete MRSA not isolated Home Meds Active Nitrofurantoin [place]-Mcr 100 mg (Nitrofurantoin Monohyd/M-Cryst) 100 Mg Capsule 100 Mg PO BID Reported Potassium Gluconate 500 Mg (83 Mg) Tablet 500 Mg PO DAILY Magnesium (Magnesium Oxide) 400 Mg Magnesium Tablet 400 Mg PO HS Celecoxib 200 Mg Capsule 200 Mg PO BID Insulin Aspart 100 Unit/Ml Vial Units SC UD USES PER INSULIN PUMP Levothyroxine Sodium 125 Mcg Tablet 125 Mcg PO DAILY Sleep Aid (Diphenhydramine HCl) 50 Mg Capsule 50 Mg PO HS PRN Duloxetine HCl 30 Mg Capsule.dr 60 Mg PO DAILY TAKES 2 (30MG) CAPS Xalatan (Latanoprost) 2.5 Ml Drops 1 Drop OU HS Pantoprazole Sodium 40 Mg Tablet.dr 40 Mg PO BID Myrbetriq (Mirabegron) 50 Mg Tab.er.24h 50 Mg PO DAILY Lovastatin 40 Mg Tablet 40 Mg PO HS Timolol Maleate 0.5% (Timolol Maleate) 5 Ml Drops 1 Drop OU DAILY Assessment/Pt DC Instructions Follow up with primary care within a week of discharge. Discharge Diet: ADA Diet Activity as Tolerated: Yes Discharge Physical Examination Allergies: Coded Allergies: iodine (Verified Allergy, Unknown, VOMITING EXTREME, 07/24/21) shrimp (Verified Allergy, Unknown, EXTREME VOMITING, 07/24/21) cephalexin (Verified Adverse Reaction, Mild, DIARRHEA, 07/24/21) General Appearance: No Apparent Distress, WD/WN Respiratory: Lungs Clear, Normal Breath Sounds Cardiovascular: Regular Rate, Rhythm, No Murmur Gastrointestinal: Normal Bowel Sounds, Soft; No Distended; Tenderness (mild diffuse ttp) Extremity: No Pedal Edema Skin: Normal Color, Warm/Dry Neurologic/Psychiatric: Alert, Normal Mood/Affect Copy Copies To 1: JOAQUÍN Stephenson BETHANY N MD Dec 18, 2021 11:26
[2021-12-18] MEDS: ENOXAPARIN 40 MG/0.4 ML (LOVENOX) SYR SQ SCH (14:11)
[2021-12-18 15:57] VITALS: BP 155/69
[2021-12-18] MEDS: LATANOPROST 0.005% (XALATAN) OPHTH SOLN 2.5 ML OU SCH (19:41)
[2021-12-18] MEDS ORDERED: MAGNESIUM OXIDE (MAG-OX)400 MG TAB PO SCH (21:00)
[2021-12-18] MEDS ORDERED: AtorvaSTATin TABLET 10 MG TABLET PO SCH (21:00)
== END 2021-12-18 20:29 | disposition home or self-care (01) | DRG 638 ==
LOC: EDUNIT# 21:00 → ER 21:01 → EDLOC 23:10 → ICU 23:10 → 4TH 12-17 15:49
PROVIDERS: ADMIT Internal Medicine; ATTEND Family Medicine
DX: E11.10 Type 2 diabetes mellitus with ketoacidosis without coma (principal); N17.9 Acute kidney failure, unspecified; N39.0 Urinary tract infection, site not specified; R41.0 Disorientation, unspecified; E03.9 Hypothyroidism, unspecified; K21.00 Gastro-esophageal reflux disease with esophagitis, without bleeding; M19.90 Unspecified osteoarthritis, unspecified site; F32.A Depression, unspecified; Z20.822 Contact with and (suspected) exposure to COVID-19; E86.1 Hypovolemia; E86.0 Dehydration; I95.9 Hypotension, unspecified; Z79.4 Long term (current) use of insulin; E78.00 Pure hypercholesterolemia, unspecified; G43.909 Migraine, unspecified, not intractable, without status migrainosus; K21.9 Gastro-esophageal reflux disease without esophagitis; H40.9 Unspecified glaucoma; F41.9 Anxiety disorder, unspecified
CPT/HCPCS: 36415; 71045; 80048; 80053; 80306; 80320; 81000; 82010; 82947; 83036; 83735; 84100; 85025; 85027; 86141; 87077; 87081; 87088; 87186; 87636

== ENCOUNTER 2021-12-24 05:29 | Outpatient (CLI) | payer MEDICARE, MEDICAID ==
[~2021-12-24] VITALS: Ht 154.9 cm; Wt 90.0 kg
[~2021-12-24 05:29] MED LIST changes: +CELE-63 PO; +INSU100V42 SC; +LEVO125T6 PO; +MAGN400T39 PO; +NITR100C10 PO; +POTA2TAB15 PO
== END 2021-12-25 13:23 ==
LOC: PREOP 05:29
PROVIDERS: ATTEND Obstetrics & Gynecology
DX: Z01.818 Encounter for other preprocedural examination (principal)

== ENCOUNTER 2021-12-31 06:17 | Day surgery (SDC) | payer MEDICARE, MEDICAID ==
[2021-12-31] VITALS (11 sets, daily range): BP systolic 116–168; BP diastolic 54–75
[~2021-12-31] VITALS: Ht 154.9 cm; Wt 90.0 kg
[2021-12-31] MEDS ORDERED: ceFAZolin INJECTION 2,000 MG in NS (IVPB) 50 ML IV ONE (06:30)
[2021-12-31] MEDS ORDERED: LACTATED RINGERS 1,000 ML IV PRN (06:30)
[2021-12-31] MEDS ORDERED: MIDAZOLAM 2 MG/2 ML (VERSED) VIAL IVP ONE (06:45)
[2021-12-31] MEDS ORDERED: FAMOTIDINE 20MG/2ML IV (PEPCID) IVP ONE (06:45)
[2021-12-31] MEDS ORDERED: BUPIVACAINE 0.25% 30 ML (SENSORCAINE) VIAL ONE (06:48)
[2021-12-31] MEDS ORDERED: ROCURONIUM 10 MG/ML 5 ML SYRINGE IV ONE (07:04)
[2021-12-31] MEDS ORDERED: proPOfol 200 MG/20 ML (DIPRIVAN) VIAL IV ONE (07:04)
[2021-12-31] MEDS ORDERED: ONDANSETRON 4 MG/2 ML (SDV) Z0FRAN ONE (07:04)
[2021-12-31] MEDS ORDERED: GLYCOPYRROLATE 0.2 MG/ML (ROBINUL) 2 ML VIAL ONE ×2 (07:04→09:01)
[2021-12-31] MEDS ORDERED: MIDAZOLAM 2 MG/2 ML (VERSED) VIAL ONE (07:04)
[2021-12-31] MEDS ORDERED: LIDOCAINE PF 2% 5 ML (XYLOCAINE) VIAL ONE (07:04)
[2021-12-31] MEDS ORDERED: fentaNYL INJ 100 MCG/2 ML AMP ONE (07:04)
[2021-12-31] MEDS ORDERED: NEOSTIGMINE (BLOXIVERZ ) 1 MG/1ML 10 ML VIAL ONE (07:05)
[2021-12-31] MEDS ORDERED: LACTATED RINGERS 1,000 ML IV SCH (07:15)
[2021-12-31 07:20] LABS: BASOPHILS # (AUTO) 0.1 10^3/uL (0.0-0.1); BASOPHILS % (AUTO) 1 % (0-10); EOSINOPHILS # (AUTO) 0.3 10^3/uL (0.0-0.3); EOSINOPHILS % (AUTO) 5 % (0-10); HEMATOCRIT 35 % (35-52); HEMOGLOBIN 11.7 g/dL (11.5-16.0); LYMPHOCYTES # (AUTO) 1.8 10^3/uL (1.0-4.0); LYMPHOCYTES % (AUTO) 24 % (12-44); MEAN CORPUSCULAR HEMOGLOBIN 29 pg (25-34); MEAN CORPUSCULAR HGB CONC 33 g/dL (32-36); MEAN CORPUSCULAR VOLUME 87 fL (80-99); MEAN PLATELET VOLUME 11.1 fL (9.0-12.2); MONOCYTES # (AUTO) 0.6 10^3/uL (0.0-1.0); MONOCYTES % (AUTO) 8 % (0-12); NEUTROPHILS # (AUTO) 4.7 10^3/uL (1.8-7.8); NEUTROPHILS % (AUTO) 62 % (42-75); PLATELET COUNT 321 10^3/uL (130-400); WHITE BLOOD COUNT 7.5 10^3/uL (4.3-11.0)
--- NOTE | 2021-12-31 07:22 | Progress Note-Pre Operative ---
Pre-Operative Progress Note Date of Available H&P: Dec 31, 2021 Date H&P Reviewed: Dec 31, 2021 Time H&P Reviewed: 07:21 History & Physical: H&P Reviewed, Patient Examed, No changes noted Pre-Operative Diagnosis: 66 yo female with PMB, BMI 37, IDDM MADDI MONTES DO Dec 31, 2021 07:22
--- NOTE | 2021-12-31 07:28 | Discharge Inst-Women's Service ---
Discharge Inst-Women's Serv Depart Medication/Instructions New, Converted or Re-Newed RX: Transmitted to Pharmacy Problems Reviewed?: Yes Consults/Follow Up Additional Follow Up: Yes Orders/Referrals Dr. Gonsalves in 7-10 days, and in 8 weeks Activity Activity: Activity as Tolerated Driving Instructions: No Driving for 1 Week NO SMOKING: NO SMOKING Nothing Inside Vagina: No Douching, No [place], No Tampons Diet Discharge Diet: No Restrictions Symptoms to Report to : Bleeding Excessive, Pain Increased, Fever Over 101 Degrees F, Vaginal Bleeding Increase, Questions/Concerns For Any Problems or Questions: Contact Your Physician Skin/Wound Care Infection Signs and Symptoms: Increased Redness, Foul Odor of Wound, Increased Drainage, Skin Itchy or Has a Rash, Increased Swelling, Temperature Above 101 F Operative Area Clean and Dry: Keep Incision Clean/Dry Stitches/Moiz/Dermabond: Dermabond, Care of Stitches Bathing Instructions: MADDI Mueller DO Dec 31, 2021 07:28
[2021-12-31] MEDS ORDERED: SIME80TA16 PO (07:30)
[2021-12-31] MEDS ORDERED: DOCUSATE SODIUM 100 MG (COLACE) CAP PO PRN (07:30)
[2021-12-31] MEDS ORDERED: ANTACID SUSP 30 ML UDC (MYLANTA) PO PRN (07:30)
[2021-12-31] MEDS ORDERED: HYDR-34 PO (07:30)
[2021-12-31] MEDS ORDERED: ZOLPIDEM 5 MG (AMBIEN) TAB PO PRN (07:30)
[2021-12-31] MEDS ORDERED: ONDANSETRON 4 MG/2 ML (SDV) Z0FRAN IV PRN (07:30)
[2021-12-31] MEDS ORDERED: DOCU100C37 PO (07:30)
[2021-12-31] MEDS ORDERED: IBUP-844 PO (07:30)
[2021-12-31 07:41] LABS: ALBUMIN 3.8 GM/DL (3.2-4.5); BILIRUBIN,TOTAL 0.5 MG/DL (0.1-1.0); CALCIUM 8.8 MG/DL (8.5-10.1); CREATININE SERUM 1.07 MG/DL (0.60-1.30); POTASSIUM 3.7 MMOL/L (3.6-5.0)
[2021-12-31] MEDS ORDERED: HYDROmorphone 2 MG/ML VIAL (DILAUDID) ONE (08:21)
[2021-12-31] MEDS ORDERED: morphine INJ 10 MG/ML 1ML (SYR OR VIAL) IVP ONE (09:15)
[2021-12-31] MEDS ORDERED: ONDANSETRON 4 MG/2 ML (SDV) Z0FRAN IVP PRN (09:15)
[2021-12-31] MEDS ORDERED: HYDROmorphone 2 MG/ML VIAL (DILAUDID) IV ONE (09:15)
[2021-12-31] MEDS ORDERED: HYDROmorphone 2 MG/ML VIAL (DILAUDID) IV PRN (09:15)
[2021-12-31] MEDS ORDERED: SEVOFLURANE (ULTANE) 15 ML INHAL SOLN ONE (09:15)
[2021-12-31] MEDS ORDERED: KETOROLAC 30 MG/ML VIAL ONE (09:40)
[2021-12-31] MEDS: KETOROLAC 30 MG/ML VIAL IVP PRN ×4 (09:41→21:16)
--- NOTE | 2021-12-31 10:13 | Anesthesia-General Post-Op ---
General Patient Condition Mental Status/LOC: Same as Preop Cardiovascular: Satisfactory Nausea/Vomiting: Absent Respiratory: Satisfactory Pain: Controlled Complications: Absent Post Op Complications Complications None Follow Up Care/Instructions Patient Instructions None needed. Anesthesia/Patient Condition Patient Condition Patient is doing well, no complaints, stable vital signs, no apparent adverse anesthesia problems. She was just discharged from the PACU to the 3rd floor without complaint. No complications reported per nursing. JOHAN BREEN DO Dec 31, 2021 10:12
[2021-12-31] MEDS ORDERED: LACTATED RINGERS 1,000 ML IV ONE (11:00)
[2021-12-31] MEDS: HYDROcodone/APAP 7.5 MG/325 MG (LORTAB, LORCET PLUS) TABLET PO PRN ×2 (12:46→19:36)
[2021-12-31] MEDS: CEPACOL SORE THROAT-COUGH LOZENGE MM PRN ×2 (12:46→19:53)
[2021-12-31] MEDS: LACTATED RINGERS 1,000 ML IV SCH ×2 (12:47→20:27)
--- NOTE | 2021-12-31 13:35 | OPERATIVE REPORT ---
DATE OF SERVICE: PREOPERATIVE DIAGNOSES: 1. A 66-year-old female with postmenopausal bleeding. 2. Complex endometrial hyperplasia with atypia. PROCEDURE: Robotic-assisted total laparoscopic hysterectomy with bilateral salpingo-oophorectomy. SURGEON: Hieu Montes DO STRINGED INSTRUMENT TUNER: Jade Cross DNP, who was necessary for manipulation and retraction throughout the procedure. ANESTHESIA: General endotracheal. ESTIMATED BLOOD LOSS: Minimal. URINE OUTPUT: 50 mL clear at the end of procedure. FLUIDS: 800 mL lactated Ringer's solution. FINDINGS: Grossly normal-appearing external female genitalia, grossly normal-appearing uterus, bilateral fallopian tubes and ovaries. SPECIMEN SENT: Uterus, bilateral fallopian tubes and ovaries. INDICATIONS FOR PROCEDURE: This is a 66-year-old female is a patient who had sought care in my office as a referral from the [facility] for postmenopausal bleeding. Her endometrial biopsy was performed via D and C, which revealed complex endometrial hyperplasia with atypia. Her surgery initially was planned to be done back in September; however, she had medical complications, which caused us to prolong her surgery back until these had been remedied. Once she was medically cleared, she then returned to my care and we scheduled the procedure. Risks of the procedure were discussed with the patient in detail including risk of bleeding, infection, damage to surrounding structures including, but not limited to bowel, bladder, ureter, kidneys, possible need for reoperation, postoperative complications that may occur, risk from anesthesia, recovery timeframe and even . After everything was discussed with the patient in detail, consent was obtained, the patient was taken to the operating room. OPERATIVE REPORT IN DETAIL: Once in the operating room, general anesthesia was found to be adequate, she was placed in dorsal lithotomy position, prepped and draped in normal sterile fashion. Timeout was performed. Anesthesia was administered and tested. A Gordillo catheter was placed using sterile technique. A weighted speculum inserted to the patient's vagina, which allows me to visualize the cervix, which was grasped at 12 o'clock position using a 0 Vicryl suture, which was placed at the anterior lip of the cervix. The suture was then removed using my retraction point. I then sound the uterine cavity, depth was found to be 6 cm. I placed a Dari uterine manipulator with a 6 cm narrow tip and a 2.5 cm colpotomy ring. The tip was advanced into the uterus where the balloon was deployed and the colpotomy ring was advanced around the vaginal fornix. I then removed all the other instruments from the patient's vagina, performed change of gloves. I then turned my attention to the abdomen, where subcostally at the midclavicular line on the left side, I introduced the Veress needle until intraperitoneal placement was confirmed using saline drop test and an opening pressure of 6 mmHg was noted, I proceeded to max pressure of 15 mmHg, at which point, I made an supraumbilical incision. This is an 8 mm incision, directed 8 mm blunt laparoscopic da Hernandez camera trocar through this incision until intraperitoneal placement was confirmed using the da Hernandez laparoscope. There was no evidence of damage upon my entry site and there is no evidence of damage upon the Veress entry site in the left upper quadrant. The Veress needle was removed at that point. I then had the patient placed in steep Trendelenburg where I visualize all my pelvic anatomy as defined in my findings above. I placed two lateral trocars, both 8 mm trocars approximately 8 cm lateral to my supraumbilical trocar. Once both these trocars were in place, I bring in the da Hernandez robot and docked in appropriate fashion placing the SynchroSeal device in left hand and monopolar johanne in the right hand, I performed the following dissection bilaterally starting at the IP ligament, I sealed and transected using the SynchroSeal device. I then grasped the round ligament, which I sealed and transected using the SynchroSeal device. I then am able to grasp the entire broad ligament, which I sealed and transected using the SynchroSeal device. I do this down to the level of the lower uterine segment, at which point I the anterior and posterior leaflets of the broad ligament. Anterior leaflet was taken around the anterior vaginal fornix and posterior leaflets was taken around to the posterior vaginal fornix. This allows me to skeletonize the uterine vessels laterally, which I sealed and transected using the SynchroSeal device. I then created a colpotomy at 12 o'clock position using monopolar johanne and took this circumferentially around the vaginal fornix amputating the cervix away from the vagina. The entire specimen was then removed through the vagina. I then closed the vaginal cuff using a 2-0 V-Loc in a running fashion, after which there was no bleeding noted from any of my dissection planes. I then undocked the da Hernandez robot and proceeded with remainder of the case laparoscopically. I then copiously irrigated the pelvis using normal saline. Once again, there was no active bleeding noted from any of my dissection planes. I placed Surgiflo hemostatic agent over all my planes of dissection. I had the patient taken out of steep Trendelenburg and removed the lateral trocars under direct visualization of the laparoscope. The supraumbilical trocar was left in place to release the remainder of the insufflation and introduced 10 mL of 0.25% Marcaine into peritoneal cavity for postoperative pain management. I then removed this trocar as well. The skin reapproximated using 4-0 Monocryl in interrupted subcuticular stitches. Dermabond was applied to the incisions and Band-Aids were placed over the incisions as well. Gordillo catheter was left in place. The patient tolerated the procedure well and sent to recovery area in stable condition. Lap and sponge counts were correct at the end of procedure. Instrument counts correct as well. Two grams of Ancef and 500 mg of Flagyl were given preoperatively for infection prophylaxis. Job ID: [id number] DocumentID: [id number] Dictated Date: 12/31/2021 10:18:17 Ship'S Engineer Date: 12/31/2021 13:34:57 Dictated By: HIEU MONTES DO
[2021-12-31] MEDS: inSUlin ASPART (NovoLOG) 1 UNIT/0.01 ML (CHARGE PER UNIT) SC SCH ×2 (15:53→20:56)
[2021-12-31] MEDS: SIMETHICONE 80 MG (MYLICON) CHEW PO PRN (19:53)
[2021-12-31] MEDS ORDERED: inSUlin ASPART (NovoLOG) 1 UNIT/0.01 ML (CHARGE PER UNIT) SC ONE (20:45)
[2021-12-31] MEDS ORDERED: NS IV 1000 ML 1,000 ML IV ONE (20:45)
[2021-12-31] MEDS ORDERED: NS IV 1000 ML 1,000 ML ONE (21:01)
[2021-12-31] MEDS: NS IV 1000 ML 1,000 ML IV SCH (21:12)
[2021-12-31] MEDS ORDERED: POTASSIUM CL 10MEQ/50ML IVPB 150 ML IV ONE (21:27)
[2021-12-31] MEDS: POTASSIUM CL 10MEQ/50ML IVPB 50 ML IV SCH ×2 (21:29→22:59)
[2022-01-01] VITALS (10 sets, daily range): BP systolic 136–178; BP diastolic 60–77
[2022-01-01] MEDS: POTASSIUM CL 10MEQ/50ML IVPB 50 ML IV SCH (00:02)
[2022-01-01] MEDS: HYDROcodone/APAP 7.5 MG/325 MG (LORTAB, LORCET PLUS) TABLET PO PRN ×3 (01:37→14:57)
[2022-01-01] MEDS: KETOROLAC 30 MG/ML VIAL IVP PRN (03:19)
[2022-01-01] MEDS: NS IV 1000 ML 1,000 ML IV SCH (03:21)
[2022-01-01] MEDS: SIMETHICONE 80 MG (MYLICON) CHEW PO PRN ×2 (03:34→09:13)
[2022-01-01] MEDS ORDERED: LABETALOL HCL 20 MG/4 ML VIAL IV ONE (05:30)
[2022-01-01] MEDS ORDERED: ASPIRIN 325 MG (5 GR) TABLET PO ONE (05:30)
[2022-01-01] MEDS ORDERED: LABETALOL HCL 20 MG/4 ML VIAL ONE (05:33)
[2022-01-01] MEDS ORDERED: ASPIRIN 81 MG CHEW (CHILDREN'S ASA) ONE (05:52)
[2022-01-01] MEDS: inSUlin ASPART (NovoLOG) 1 UNIT/0.01 ML (CHARGE PER UNIT) SC SCH ×4 (06:00→17:13)
[2022-01-01] MEDS ORDERED: ASPIRIN 81 MG CHEW (CHILDREN'S ASA) PO ONE (06:00)
[2022-01-01 07:01] LABS: ALBUMIN 3.6 GM/DL (3.2-4.5); BILIRUBIN,TOTAL 0.5 MG/DL (0.1-1.0); CALCIUM 8.8 MG/DL (8.5-10.1); CREATININE SERUM 0.95 MG/DL (0.60-1.30); POTASSIUM 4.3 MMOL/L (3.6-5.0); TOTAL PROTEIN 6.9 GM/DL (6.4-8.2)
[2022-01-01] MEDS: LACTATED RINGERS 1,000 ML IV SCH ×3 (07:30→15:30)
[2022-01-01] MEDS ORDERED: lisINopril 10 MG (PRINIVIL) TABLET PO NR (08:00)
[2022-01-01] MEDS ORDERED: BETHANECHOL 10 MG (URECHOLINE) TAB PO NR (08:00)
[2022-01-01] MEDS ORDERED: LISI5TAB20 PO (08:07)
[2022-01-01] MEDS ORDERED: BTH10T PO (08:07)
[2022-01-01] MEDS ORDERED: lisINopril 5 MG (PRINIVIL) TABLET PO NR (08:30)
--- NOTE | 2022-01-01 08:30 | Progress Note ---
Standard Progress Note Progress Notes/Assess & Plan Date Seen by a Provider: Jan 01, 2022 Time Seen by a Provider: 07:45 Progress/Assessment & Plan Patient seen this morning and doing well without complaint eating breakfast. Reports chest pain this AM which has resolved. Denies vaginal bleeding. BS this morning better controlled. Diagnosis: POD 1 RATLH w BSO Postop chest pain IDDM P: Starting on Lisinopril 5 mg daily to slow progression of diabetic nephropathy, and BP control going forward Continue insulin pump management Sliding scale for breakthrough Follow up in one week. Laboratory Tests Test 12/31/21 09:12 12/31/21 15:44 12/31/21 20:36 12/31/21 22:21 Range/Units Glucometer 227 H 408 *H 520 *H 499 *H 70-110 MG/DL Test 01/01/22 06:20 01/01/22 07:11 Range/Units Sodium Level 137 135-145 MMOL/L Potassium Level 4.3 3.6-5.0 MMOL/L Chloride Level 105 98-107 MMOL/L Carbon Dioxide Level 19 L 21-32 MMOL/L Anion Gap 13 5-14 MMOL/L Blood Urea Nitrogen 9 7-18 MG/DL Creatinine 0.95 0.60-1.30 MG/DL Estimat Glomerular Filtration Rate 67 BUN/Creatinine Ratio 9 Glucose Level 116 H 70-105 MG/DL Calcium Level 8.8 8.5-10.1 MG/DL Corrected Calcium 9.1 8.5-10.1 MG/DL Total Bilirubin 0.5 0.1-1.0 MG/DL Aspartate Amino Transf (AST/SGOT) 61 H 5-34 U/L Alanine Aminotransferase (ALT/SGPT) 47 0-55 U/L Alkaline Phosphatase 212 H 40-136 U/L Total Protein 6.9 6.4-8.2 GM/DL Albumin 3.6 3.2-4.5 GM/DL Glucometer 129 H 70-110 MG/DL MADDI MONTES DO Jan 01, 2022 08:30
[2022-01-01] MEDS ORDERED: BETHANECHOL 10 MG (URECHOLINE) TAB PO SCH (15:00)
[2022-01-05] MEDS ORDERED: IBUPROFEN 600 MG (MOTRIN) TAB PO PRN (07:30)
== END 2022-01-01 20:30 | disposition home or self-care (01) ==
LOC: SDC 06:17 → WS 10:20 → SDC 01-01 20:30
PROVIDERS: ATTEND Obstetrics & Gynecology
DX: N85.01 Benign endometrial hyperplasia (principal); D25.2 Subserosal leiomyoma of uterus; N84.1 Polyp of cervix uteri; N83.8 Other noninflammatory disorders of ovary, fallopian tube and broad ligament; N83.312 Acquired atrophy of left ovary; N83.311 Acquired atrophy of right ovary; E10.9 Type 1 diabetes mellitus without complications; G47.33 Obstructive sleep apnea (adult) (pediatric); E66.9 Obesity, unspecified; Z68.38 Body mass index [BMI] 38.0-38.9, adult; Z79.4 Long term (current) use of insulin; Z96.41 Presence of insulin pump (external) (internal); Z87.891 Personal history of nicotine dependence; Z28.310 Unvaccinated for COVID-19
CPT/HCPCS: 36415; 80053; 82947; 85025; 86850; 86900; 86901; 87081; 93005; 94664; 94760

== ENCOUNTER 2022-10-02 05:39 | Outpatient (CLI) | payer MEDICARE, MEDICAID ==
[~2022-10-02] VITALS: Ht 156.2 cm; Wt 85.3 kg
[~2022-10-02 05:39] MED LIST changes: +BTH10T PO; -DIPH-809 PO; +DIPH-871 PO; +DOCU100C37 PO; +IBUP-844 PO; +LISI5TAB20 PO; +SIME80TA16 PO; +TIMO5DRO16 OU; -TIMO5DRO5 OU
[2022-10-03] MEDS ORDERED: BUPR-105 PO (12:04)
[2022-10-03] MEDS ORDERED: LOSA25TA41 PO (12:04)
[2022-10-03] MEDS ORDERED: TRAZ-227 PO (12:04)
[2022-10-03] MEDS ORDERED: SUCR1TAB PO (12:04)
[2022-10-03] MEDS ORDERED: LEVO150C4 PO (12:04)
[2022-10-03] MEDS ORDERED: ATOR80TA76 PO (12:04)
== END 2022-10-03 12:10 | disposition home or self-care (01) ==
LOC: PREOP 05:39
PROVIDERS: ATTEND Surgery
DX: Z01.818 Encounter for other preprocedural examination (principal)

== ENCOUNTER 2022-10-14 07:29 | Day surgery (SDC) | payer MEDICARE, MEDICAID ==
[~2022-10-14] VITALS: Ht 156.2 cm; Wt 85.3 kg
[~2022-10-14 07:29] MED LIST changes: +ATOR80TA76 PO; +BUPR-105 PO; +LEVO150C4 PO; +LOSA25TA41 PO; +TRAZ-227 PO
[2022-10-14] MEDS ORDERED: LACTATED RINGERS 1,000 ML IV STA (07:30)
[2022-10-14] MEDS ORDERED: HURRICAINE EXT TUBE (BENZOCAINE) XX PRN (07:30)
[2022-10-14 07:47] VITALS: BP 150/56
[2022-10-14] MEDS ORDERED: PROPOFOL INJECTION 50 ML IV ONE (07:53)
--- NOTE | 2022-10-14 08:48 | Progress Note-Pre Operative ---
Pre-Operative Progress Note Date of Available H&P: Sep 24, 2022 Date H&P Reviewed: Oct 14, 2022 Time H&P Reviewed: 08:42 History & Physical: H&P Reviewed, Patient Examed, No changes noted Pre-Operative Diagnosis: Coffee ground emesis, GERD, epigastric pain KENDALL DOW DO Oct 14, 2022 08:48
[2022-10-14 09:40] VITALS: BP 122/58
--- NOTE | 2022-10-14 09:42 | Progress Note-Post Operative ---
Post-Operative Progess Note Surgeon (s)/Shop Clerk (s) Surgeon KENDALL DOW DO Shop Clerk: none Pre-Operative Diagnosis Coffee ground emesis, GERD, epigastric pain Post-Operative Diagnosis Gastritis Hiatal Hernia Colorado's Esophagus Procedure & Operative Findings Date of Procedure 10/14/22 Procedure Performed/Findings EGD with bx PROCEDURE NOTE: After informed consent was obtained, the patient was brought to the endoscopy suite, placed in bed in left lateral decubitus position. She was administered IV sedation by the MEDICAL UNDERWRITER who then monitored vitals the entire time, heart rate, blood pressure and pulse ox and the scope was inserted down the mouth through the esophagus into the stomach. On the way down, noted some moderate esophagitis, took a picture, pushed into the stomach, pushed past the antrum into the duodenum. Duodenum looked good. Pulled back and did a biopsy of antrum, then retroflexed the scope, saw Grade III AFS hiatal hernia, took a picture of this and then pulled the scope into the GE junction. I took another picture of the hiatal hernia and then did two biopsies of the GE junction. One of the biopsies may have been of an ulcer or at least Colorado's esophagus. Pushed the scope back into the stomach, suctioned all the air out of the stomach. At this point pulled the scope up the esophagus and out the mouth. The patient tolerated the procedure, and she recovered in endoscopy suite. Anesthesia Type IV sedation by MEDICAL UNDERWRITER Estimated Blood Loss Estimated blood loss (mL): scant Specimens/Packing Specimens Removed antral bx GE jxn x 2 KENDALL DOW DO Oct 14, 2022 09:42
--- NOTE | 2022-10-14 09:42 | Anesthesia-General Post-Op ---
MAC Patient Condition Mental Status/LOC: Same as Preop Cardiovascular: Satisfactory Nausea/Vomiting: Absent Respiratory: Satisfactory Pain: Controlled Complications: Absent Post Op Complications Complications None Follow Up Care/Instructions Patient Instructions None needed. Anesthesiology Discharge Order Discharge Order Patient is doing well, no complaints, stable vital signs, no apparent adverse anesthesia problems. No complications reported per nursing. DICKSON RICHARDSON CRNA Oct 14, 2022 09:41
--- NOTE | 2022-10-14 09:43 | Endoscopy Discharge Instruct ---
Endo Procedure/Findings Findings 1.: Gastritis 2.: Hiatal Hernia 3.: Colorado's Esophagus Discharge Instructions - Activity: You might feel a little sleepy until tomorrow. This is due to the medicine you received to relax you. Until tomorrow, you should: NOT drive a car, operate machinery or power tools. NOT drink any alcoholic beverages. NOT make any important decisions or sign importortant papers. Do not return to work until tomorrow, unless otherwise instructed. Resume previous activities tomorrow. Diet: Start by taking liquids. If you tolerate liquids, advance to solid food. 1.: EGD in 1 year Notify Physician - If you experience excessive bleeding, unusual abdominal pain, fever, or chest pain, contact your doctor immediately. Follow-Up: Other Follow up in my office in one week KENDALL DOW DO Oct 14, 2022 09:43
[2022-10-14 09:45] VITALS: BP 130/60
[2022-10-14 09:50] VITALS: BP 133/63
[2022-10-14 10:15] VITALS: BP 136/59
[2022-10-14 10:33] VITALS: BP 136/59
== END 2022-10-14 10:33 | disposition home or self-care (01) ==
LOC: ENDO 07:29
PROVIDERS: ATTEND Surgery
DX: K44.9 Diaphragmatic hernia without obstruction or gangrene (principal); K22.70 Barrett's esophagus without dysplasia; K29.50 Unspecified chronic gastritis without bleeding; K21.9 Gastro-esophageal reflux disease without esophagitis; E66.9 Obesity, unspecified; Z68.35 Body mass index [BMI] 35.0-35.9, adult; Z87.891 Personal history of nicotine dependence

== ENCOUNTER → 2023-01-21 | Outpatient (CLI) | payer MEDICARE, MEDICAID ==
[~2023-01-21] MED LIST changes: -CELE-63; -CELE-63 PO; +CELE-91; +CELE-91 PO; -CELE100C84 PO; +CELE100C85 PO
--- NOTE | 2023-01-21 14:58 | Diagnostic Imaging Report ---
INDICATION: Postmenopausal state. COMPARISON: 08/08/2020. FINDINGS: AP Spine L1-L4: [BMD (g/cm2): 0.864] [T-Score: -2.8] [Z-Score: -1.8] [BMD Previous: 0.945] [BMD % Change: -8.6*] LT Hip Neck: [BMD (g/cm2): 0.674] [T-Score: -2.6] [Z-Score: -1.5] LT Hip Total: [BMD (g/cm2):0.838] [T-Score:-1.3] [Z-Score: -0.5] [BMD Previous: 0.823] [BMD % Change: 1.8] RT Hip Neck: [BMD (g/cm2):0.736] [T-Score:-2.2] [Z-Score:-1.1] RT Hip Total: [BMD (g/cm2):0.853] [T-score:-1.2] [Z-Score:-0.4] [BMD Previous:0.851] [BMD % Change:0.2] *Indicates significant change from prior examination based on 95% confidence level. World Health Organization criteria for BMD interpretation classify patients as Normal (T-score at or above -1.0), Osteopenic (T-score between -1.0 and -2.5) or Osteoporotic (T-score at or below -2.5). LIMITATIONS AND MODIFICATION: None. FRACTURE RISK (FRAX SCORE): The ten year probability of (%): Major Osteoporotic Fracture: [21.1] Hip Fracture: [4.8] IMPRESSION: 1. Osteoporosis. 2. Bone mineral density within the lumbar spine has significantly decreased since the prior examination. Bone mineral density within the bilateral hips has not significantly changed from the prior exam. 3. See below National Osteoporosis Foundation guidelines on when to potentially initiate pharmacologic therapy. Based on the National Osteoporosis Foundation Guidelines, pharmacologic treatment should be initiated in any of the following, unless clinical conditions suggest otherwise: * Any patient with prior fragility fracture of the hip or vertebrae. A spine fracture indicates 5X risk for subsequent spine fracture and 2X risk for subsequent hip fracture. * Osteoporosis (T-score <-2.5). * Postmenopausal women and men age 50 and older with low bone mass/osteopenia (T-score between -1.0 and -2.5) by DXA and 10-year major osteoporotic fracture greater than 20% or a 10-year probability of hip fracture greater than 3%. These fracture risks are supplied above in the FRAX score, if applicable. * Clinician judgement and/or patient preferences may indicate treatment for people with 10-year fracture probabilities above or below these levels. Dictated by: Dictated on workstation # [id number]
== END ==
LOC: RAD 14:15
PROVIDERS: ATTEND Pediatrics
DX: M81.0 Age-related osteoporosis without current pathological fracture (principal); Z78.0 Asymptomatic menopausal state
CPT/HCPCS: 77080

== ENCOUNTER 2023-02-09 23:01 | Inpatient (IN) | payer MEDICARE, MEDICAID ==
[~2023-02-09] VITALS: Ht 157.5 cm; Wt 79.4 kg
[~2023-02-09 23:01] MED LIST changes: +CELE-112 PO; -CELE100C85 PO
[2023-02-09] MEDS ORDERED: NS IV 1000 ML 1,000 ML IV SCH ×2 (23:15→23:45)
[2023-02-09] MEDS ORDERED: ONDANSETRON INJECTION 4 MG/2 ML (SDV) IVP ONE (23:30)
[2023-02-09 23:36] LABS: ABG BASE EXCESS -16.3 MMOL/L (-2.5-2.5); ABG OXYGEN SATURATION 92 % (94-100); ABG PCO2 21 MMHG (35-45); ABG PO2 60 MMHG (79-93)
[2023-02-09 23:38] LABS: BASOPHILS # (AUTO) 0.1 10^3/uL (0.0-0.1); BASOPHILS % (AUTO) 1 % (0-10); EOSINOPHILS % (AUTO) 0 % (0-10); HEMATOCRIT 34 % (35-52); HEMOGLOBIN 10.7 g/dL (11.5-16.0); LYMPHOCYTES # (AUTO) 3.6 10^3/uL (1.0-4.0); LYMPHOCYTES % (AUTO) 18 % (12-44); MEAN CORPUSCULAR HEMOGLOBIN 28 pg (25-34); MEAN CORPUSCULAR HGB CONC 32 g/dL (32-36); MEAN CORPUSCULAR VOLUME 90 fL (80-99); MEAN PLATELET VOLUME 11.7 fL (9.0-12.2); MONOCYTES # (AUTO) 1.1 10^3/uL (0.0-1.0); MONOCYTES % (AUTO) 5 % (0-12); NEUTROPHILS # (AUTO) 15.2 10^3/uL (1.8-7.8); NEUTROPHILS % (AUTO) 75 % (42-75); PLATELET COUNT 435 10^3/uL (130-400); WHITE BLOOD COUNT 20.2 10^3/uL (4.3-11.0)
[2023-02-09 23:40] LABS: ABG PH 7.24 (7.37-7.43); ABG TCO2 9.6 MMOL/L (21.0-31.0); INSPIRED O2 ROOM AIR; VENTILATOR NO
--- NOTE | 2023-02-09 23:41 | ED General ---
General Chief Complaint: Glucose Problems Stated Complaint: POSS DKA,BLOOD SUGAR OVER 500 TODAY Nursing Triage Note: C/O N/V HIGH GLUCOSE SINCE FRIDAY. REPORTS [facility] CHANGED INSULING PUMP SETTINGS FRIDAY D/T LOW BLOOD GLUCOSE OVERNIGHT. Source of Information: Patient History of Present Illness Date Seen by Provider: Feb 09, 2023 Time Seen by Provider: 23:10 Initial Comments PT ARRIVES VIA POV FROM HOME PT IS INSULIN-DEPENDENT DIABETIC, SHE HAS AN INSULIN PUMP AND WEARS A CONTINUOUS GLUCOSE MONITOR. SHE STATES THAT SHE HAS BEEN HAVING BLOOD SUGARS > 500 FOR THE LAST 3 DAYS HER C.G.M. CUTS OFF AT 400, SO SHE HAS BEEN DOING FINGER STICK GLUCOSE CHECKS WHEN IT GETS > 400. HER GLUCOSE TONIGHT WAS 567 SHE GAVE HERSELF A BOLUS OF 10 UNITS THIS MORNING, BUT HAS NOT DONE ANY OTHER BOLUSES. SHE HAS BEEN HAVING NAUSEA AND VOMITING AND CAN'T KEEP ANYTHING DOWN SHE ATE SOME CHILI THIS MORNING AND AGAIN AROUND 1800, BUT COULD NOT KEEP IT DOWN SHE HAS BEEN DRINKING WATER AND ICE TEA, BUT CAN'T KEEP THOSE DOWN EITHER NO ABDOMINAL PAIN NO DIARRHEA NO FEVER/SWEATS/CHILLS NO PAIN ON URINATION SHE HAS HAD THIRST AND URINARY FREQUENCY SHE STATES THAT HER BLOOD SUGARS HAVE BEEN GETTING LOW AT NIGHT, AND SO SOMEONE AT [facility] CHANGED HER INSULIN PUMP DOSE ON FRIDAY--SHE DID NOT SEE HER DR AT THAT TIME. SHE HAS HAD HIGH BLOOD SUGARS SINCE FRIDAY. SHE HAS HAD MULTIPLE EPISODES OF DKA. LAST ADMIT HERE FOR DKA WAS 12/2021. PT SEES DR. DICKINSON AT [facility] FOR ROUTINE MEDICAL CARE SHE STATES SHE HAS NEVER SEEN AN SANDER AND BUFFER. PCP: DR. DICKINSON, AT [facility] Allergies and Home Medications Allergies Coded Allergies: iodine (Verified Allergy, Unknown, VOMITING EXTREME, 12/25/21) shrimp (Verified Allergy, Unknown, EXTREME VOMITING, 12/25/21) cephalexin (Verified Adverse Reaction, Mild, DIARRHEA, 12/25/21) Patient Home Medication List Home Medication List Reviewed: Yes Atorvastatin Calcium (Atorvastatin Calcium) 80 Mg Tablet, 80 MG PO HS, (Reported) Entered as Reported by: CHANTEL LAWRENCE on 10/03/22 1204 Bupropion HCl (Bupropion HCl Sr) 150 Mg Tablet.er, 150 MG PO DAILY, (Reported) Entered as Reported by: CHANTEL LAWRENCE on 10/03/22 1204 Celecoxib (Celecoxib) 200 Mg Capsule, 200 MG PO BID, (Reported) Entered as Reported by: CAMERON MALHOTRA on 12/17/21 1419 Duloxetine HCl (Duloxetine HCl) 30 Mg Capsule.dr, 60 MG PO DAILY, (Reported) Entered as Reported by: DANA LAZCANO on 08/13/21 1228 Insulin Aspart (Insulin Aspart) 100 Unit/Ml Vial, UNITS SC UD, (Reported) Entered as Reported by: CAMERON MALHOTRA on 12/17/21 1419 Latanoprost (Xalatan) 2.5 Ml Drops, 1 DROP OU HS, (Reported) Entered as Reported by: CAMERON MALHOTRA on 03/16/20 1027 Levothyroxine Sodium (Levothyroxine) 150 Mcg Capsule, 150 MCG PO DAILY, (Reported) Entered as Reported by: CHANTEL LAWRENCE on 10/03/22 1204 Lisinopril (Lisinopril) 5 Mg Tablet, 5 MG PO DAILY Prescribed by: PAMELA PATEL on 01/01/22 0807 Losartan Potassium (Losartan Potassium) 25 Mg Tablet, 25 MG PO DAILY, (Reported) Entered as Reported by: CHANTEL LAWRENCE on 10/03/22 1204 Magnesium Oxide (Magnesium) 400 Mg Magnesium Tablet, 400 MG PO HS, (Reported) Entered as Reported by: CAMERON MALHOTRA on 12/17/21 1420 Mirabegron (Myrbetriq) 50 Mg Tab.er.24h, 50 MG PO DAILY, (Reported) Entered as Reported by: CAMERON MALHOTRA on 03/16/20 1027 Pantoprazole Sodium (Pantoprazole Sodium) 40 Mg Tablet.dr, 40 MG PO BID, (Reported) Entered as Reported by: CAMERON MALHOTRA on 03/16/20 1027 Potassium Gluconate (Potassium Gluconate) 500 Mg (83 Mg) Tablet, 500 MG PO DAILY, (Reported) Entered as Reported by: CAMERON MALHOTRA on 12/17/21 1420 Sucralfate (Sucralfate) 1 Gram Tablet, 1 GM PO BID, (Reported) Entered as Reported by: CHANTEL LAWRENCE on 10/03/22 1204 Timolol Maleate (Timolol Maleate 0.5%) 5 Ml Drops, 1 DROP OU DAILY, (Reported) Entered as Reported by: CHRISTIANO RODRIGUEZ on 12/21/18 1144 Trazodone HCl (Trazodone HCl) 100 Mg Tablet, 100 MG PO HS, (Reported) Entered as Reported by: CHANTEL LAWRENCE on 10/03/22 1204 Review of Systems Review of Systems Constitutional: see HPI, malaise, weakness EENTM: no symptoms reported Respiratory: no symptoms reported Cardiovascular: no symptoms reported Gastrointestinal: see HPI; No abdominal pain, No diarrhea; nausea, vomiting Genitourinary: see HPI, frequency Musculoskeletal: no symptoms reported Skin: no symptoms reported Psychiatric/Neurological: No Symptoms Reported Hematologic/Lymphatic: No Symptoms Reported Immunological/Allergic: no symptoms reported Past Rivqgpz-Lkxwwp-Nrxcxe Hx Patient Social History Tobacco Use?: No Substance use?: No Alcohol Use?: No Pt feels they are or have been: No Immunizations Up To Date Tetanus Booster (TDap): Unknown Seasonal Allergies Seasonal Allergies: Yes Past Medical History Surgery/Hospitalization HX: APPY, ROBERT, DENTAL BREANNA, HTN,HLD, IDDM, RENAL STONES, GERD, HYPOTHYROIDISM, ANXIETY, DEPRESSION Surgeries: Yes (OVARIAN CYST, DENTAL, MOLE REMOVED, TOENAIL, FX ARM, shoulder sx) Appendectomy, Gallbladder, Hysterectomy, Oophorectomy Respiratory: Yes Sleep Apnea Currently Using CPAP: Yes Currently Using BIPAP: No Cardiac: Yes High Cholesterol, Hypertension Neurological: Yes Headaches /Migraines Reproductive Disorders: Yes (POST MENOPAUSAL BLEEDING/ENDOMETRIAL HYPERPLASIA AND ATYPIA) Female Reproductive Disorders: Menstrual Problems, 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 History: Hysterectomy, Menopausal Sexually Transmitted Disease: No HIV/AIDS: No Genitourinary: Yes Bladder Infection, Kidney Stones, UTI-Chronic Gastrointestinal: Yes (ESOPHAGEAL ULCER) Gastroesophageal Reflux, [place]'s Esophagus, Gastrointestinal Bleed, Chronic Co nstipation, Polyps, Esophagitis, Hiatal Hernia, Ulcer, Gall Bladder Disease Musculoskeletal: Yes (RIGHT WRIST FX) Arthritis, Fractures Endocrine: Yes (INSULIN PUMP AND CGM; DKA) Diabetes, Insulin dep, Hypothyroidsim HEENT: Yes (READING GLASSES; POOR DENTITION, MISSING TEETH) Glaucoma Loss of Vision: Bilateral Hearing Impairment: Denies Cancer: No Psychosocial: Yes Sleep Difficulties, Anxiety, Depression Integumentary: Yes (EAR SKIN TAG/MOLE: HAIRLINE) Blood Disorders: No Adverse Reaction/Blood Tranf: No (N/A) Family Medical History Cancer 19 FATHER ( of stomache cancer) Family history: Arthritis G8 BROTHER (bad back) Family history: Gastrointestinal disease 19 MOTHER ( with c-diff) No Pertinent Family Hx PAST SURGICAL HISTORY -RA-HYSTERECTOMY/BSO 12/[address] MONTES FOR ENDOMETRIAL HYPERPLASIA AND ATYPIA - EGD/BIOPSIES 10/05/[address] DOW: Pre-Operative Diagnosis Coffee ground emesis, GERD, epigastric pain Post-Operative Diagnosis Gastritis Hiatal Hernia Colorado's Esophagus Procedure & Operative Findings Date of Procedure 10/14/22 Procedure Performed/Findings EGD with bx Physical Exam Vital Signs Vital Signs - First Documented 02/09/23 23:09 Temp 36.6 Pulse 107 Resp 16 B/P (MAP) 145/47 (79) Pulse Ox 97 O2 Delivery Room Air Capillary Refill : Less Than 3 Seconds Height, Weight, BMI Height: 5'2.00" Weight: 175lbs. 0.9oz. [id number]; 38.00 BMI Method:Stated General Appearance: No Apparent Distress, WD/WN, Other (PT WITH ODOR OF KETOSIS; PT IS NOT HYPERVENTILATING; SHE DOES HAVE SOME GENERALIZED WEAKNESS.) HEENT: PERRL/EOMI, Other (ORAL MUCOSA DRY. POOR DENTITION WITH MULTIPLE MISSING TEETH) Neck: Normal Inspection Respiratory: Normal Breath Sounds, No Accessory Muscle Use, No Respiratory Distress Cardiovascular: No JVD, No Murmur, Normal Peripheral Pulses, Tachycardia Gastrointestinal: Normal Bowel Sounds, Non Tender, Soft Back: No CVA Tenderness Extremity: Normal Capillary Refill, Normal Inspection, Normal Range of Motion, Non Tender, No Calf Tenderness, No Pedal Edema Neurologic/Psychiatric: Alert, Oriented x3, No Motor/Sensory Deficits, upholstery cutter II- XII Norm as Tested Skin: Warm/Dry, Pallor Focused Exam Sepsis Stage: Sepsis Possible Source: Genitouriary Lactate Level 02/09/23 23:50: Lactic Acid Level 1.77 Time of Focused Exam: 00:30 Respiratory: Normal Breath Sounds, No Accessory Muscle Use, No Respiratory Distress Cardiovascular: Regular Rate, Rhythm, No Murmur Capillary Refill: Less Than 3 Seconds Skin: warm/dry, pallor Lactic Acid Level Laboratory Tests Test 02/09/23 23:50 Lactic Acid Level 1.77 MMOL/L (0.50-2.00) Within 3hrs of presentation: Admin fluids, Admin ABX, Blood cultures prior to ABX's, Focus exam, Lactate level Progress/Results/Core Measures Suspected Sepsis SIRS Temperature: Pulse: 107 Respiratory Rate: 16 Laboratory Tests 02/09/23 23:20: White Blood Count 20.2H Blood Pressure 145 /47 Mean: 79 02/09/23 23:50: Lactic Acid Level 1.77 Laboratory Tests 02/09/23 23:20: Creatinine 1.85H, Platelet Count 435H, Total Bilirubin 0.5 Results/Orders Lab Results Laboratory Tests Test 02/09/23 23:15 02/09/23 23:20 02/09/23 23:25 02/09/23 23:50 Range/Units Urine Color YELLOW Urine Clarity CLEAR Urine pH 5.0 5-9 Urine Specific [place] 1.015 L 1.016-1.022 Urine Protein 1+ H NEGATIVE Urine Glucose (UA) 2+ H NEGATIVE Urine Ketones 4+ H NEGATIVE Urine Nitrite NEGATIVE NEGATIVE Urine Bilirubin 1+ H NEGATIVE Urine Urobilinogen 0.2 < = 1.0 MG/DL Urine Leukocyte Esterase 1+ H NEGATIVE Urine RBC (Auto) TRACE H NEGATIVE Urine RBC 2-5 H /HPF Urine WBC 10-25 H /HPF Urine Crystals PRESENT H /LPF Urine Amorphous Sediment FEW JOSEPH URATES H /LPF Urine Bacteria FEW H /HPF Urine Casts NONE /LPF Urine Mucus NEGATIVE /LPF Urine Culture Indicated CULTURE PENDING White Blood Count 20.2 H 4.3-11.0 10^3/uL Red Blood Count 3.78 L 3.80-5.11 10^6/uL Hemoglobin 10.7 L 11.5-16.0 g/dL Hematocrit 34 L 35-52 % Mean Corpuscular Volume 90 80-99 fL Mean Corpuscular Hemoglobin 28 25-34 pg Mean Corpuscular Hemoglobin Concent 32 32-36 g/dL Red Cell Distribution Width 14.2 10.0-14.5 % Platelet Count 435 H 130-400 10^3/uL Mean Platelet Volume 11.7 9.0-12.2 fL Immature Granulocyte % (Auto) 1 % Neutrophils (%) (Auto) 75 42-75 % Lymphocytes (%) (Auto) 18 12-44 % Monocytes (%) (Auto) 5 0-12 % Eosinophils (%) (Auto) 0 0-10 % Basophils (%) (Auto) 1 0-10 % Neutrophils # (Auto) 15.2 H 1.8-7.8 10^3/uL Lymphocytes # (Auto) 3.6 1.0-4.0 10^3/uL Monocytes # (Auto) 1.1 H 0.0-1.0 10^3/uL Eosinophils # (Auto) 0.0 0.0-0.3 10^3/uL Basophils # (Auto) 0.1 0.0-0.1 10^3/uL Immature Granulocyte # (Auto) 0.2 H 0.0-0.1 10^3/uL Neutrophils % (Manual) 72 % Lymphocytes % (Manual) 23 % Monocytes % (Manual) 4 % Metamyelocytes % 1 % Blood Morphology Comment NORMAL Erythrocyte Sedimentation Rate 33 H 0-30 MM/HR Venous Blood pH 7.26 L 7.31-7.41 Venous Blood Partial Pressure CO2 18 L 40-52 MMHG Venous Blood HCO3 8 L 22-28 MMOL/L Sodium Level 126 L 135-145 MMOL/L Potassium Level 4.4 3.6-5.0 MMOL/L Chloride Level 93 L 98-107 MMOL/L Carbon Dioxide Level 7 *L 21-32 MMOL/L Anion Gap 26 H 5-14 MMOL/L Blood Urea Nitrogen 18 7-18 MG/DL Creatinine 1.85 H 0.60-1.30 MG/DL Estimat Glomerular Filtration Rate 30 BUN/Creatinine Ratio 10 Glucose Level 766 *H 70-105 MG/DL Calcium Level 8.9 8.5-10.1 MG/DL Corrected Calcium 9.0 8.5-10.1 MG/DL Magnesium Level 1.9 1.6-2.4 MG/DL Total Bilirubin 0.5 0.1-1.0 MG/DL Aspartate Amino Transf (AST/SGOT) 10 5-34 U/L Alanine Aminotransferase (ALT/SGPT) 21 0-55 U/L Alkaline Phosphatase 153 H 40-136 U/L C-Reactive Protein High Sensitivity 6.95 H 0.00-0.50 MG/DL Total Protein 7.1 6.4-8.2 GM/DL Albumin 3.9 3.2-4.5 GM/DL Amylase Level 40 25-125 U/L Lipase 5 L 8-78 U/L Beta-Hydroxybutyrate (Chem panel) 9.98 H 0.00-0.27 MMOL/L Arterial Blood pH 7.24 *L 7.37-7.43 Arterial Blood Partial Pressure CO2 21 L 35-45 MMHG Arterial Blood Partial Pressure O2 60 L 79-93 MMHG Arterial Blood HCO3 9 *L 23-27 MMOL/L Arterial Blood Total CO2 9.6 *L 21.0-31.0 MMOL/L Arterial Blood Oxygen Saturation 92 L 94-100 % Arterial Blood Base Excess -16.3 L -2.5-2.5 MMOL/L Blood Gas Ventilator Setting NO Blood Gas Inspired Oxygen ROOM AIR Lactic Acid Level 1.77 0.50-2.00 MMOL/L My Orders Orders - ROSARIO MCFADDEN DO Ed Iv/Invasive Line Start (02/09/23 23:13) Monitor-Rhythm Ecg Trace Only (02/09/23 23:13) Amylase (02/09/23 23:13) Cbc And Automated Diff (02/09/23 23:13) Comprehensive Metabolic Panel (02/09/23 23:13) Hs C Reactive Protein (02/09/23 23:13) Lipase (02/09/23 23:13) Magnesium (02/09/23 23:13) Ua Culture If Indicated (02/09/23 23:13) Erythrocyte Sedimentation Rate (02/09/23 23:13) Ed Iv/Invasive Line Start (02/09/23 23:13) Beta Hydroxybutyrate (02/09/23 23:13) Hemoglobin A1c (02/09/23 23:13) Ed Iv/Invasive Line Start (02/09/23 23:13) Ns Iv 1000 Ml (Ns Iv 1000 Ml) (02/09/23 23:15) Ondansetron Injection (Ondansetron Inj (02/09/23 23:30) Venous Blood Gas (02/09/23 23:25) Arterial Blood Gas (02/09/23 23:31) Manual Differential (02/09/23 23:20) Lactic Acid Analyzer (02/09/23 23:44) Blood Culture (02/09/23 23:44) Urine Culture (02/09/23 23:44) Ed Iv/Invasive Line Start (02/09/23 23:44) Vital Signs Adult Sepsis Patie Q15M (02/09/23 23:44) O2 (02/09/23 23:44) Remove Rings In Anticipation O (02/09/23 23:44) Ed Iv/Invasive Line Start (02/09/23 23:44) Ns Iv 1000 Ml (Ns Iv 1000 Ml) (02/09/23 23:45) Sodium Bicarbonate 8.4% Syr (Sodium Bica (02/09/23 23:45) Chest 1 View, Ap/Pa Only (02/10/23 00:01) Piperacillin/Tazobactam (Piperacillin/Ta (02/10/23 00:15) Ed Iv/Invasive Line Start (02/10/23 00:25) Ns Iv 1000 Ml (Ns Iv 1000 Ml) (02/10/23 00:30) Insulin (Regular) Per Unit (Insulin (Reg (02/10/23 00:30) Ekg Tracing (02/10/23 00:32) Troponin I Merrick (02/10/23 00:32) Medications Given in ED Current Medications Medications Dose Ordered Sig/Sukumar Route Start Time Stop Time Status Last Admin Dose Admin Insulin Human Regular 15 unit ONCE ONCE IV 02/10/23 00:30 02/10/23 00:31 DC 02/10/23 00:37 15 UNIT Ondansetron HCl 8 mg ONCE ONCE IVP 02/09/23 23:30 02/09/23 23:31 DC 02/09/23 23:30 8 MG Piperacillin Sod/ Tazobactam Sod 4.5 gm/Sodium Chloride 100 ml @ 200 mls/hr ONCE ONCE IV 02/10/23 00:15 02/10/23 00:44 DC 02/10/23 00:37 200 MLS/HR Sodium Bicarbonate 50 meq ONCE ONCE IV 02/09/23 23:45 02/09/23 23:46 DC 02/09/23 23:53 50 MEQ Vital Signs/I&O 02/09/23 23:09 Temp 36.6 Pulse 107 Resp 16 B/P (MAP) 145/47 (79) Pulse Ox 97 O2 Delivery Room Air 02/10/23 00:00 Intake Total 1000 ml Balance 1000 ml Capillary Refill : Less Than 3 Seconds Blood Pressure Mean: 79 Point of Care Testing Blood Glucose Action Taken: TO HIGH (EXCEEDS MEASURES) NOTIFIED Progress Note : Progress Note VITALS ON ARRIVAL: TEMP 36.6=97.8, HR 107, RR 16, BP 145/47, O2 SAT 97% ON ROOM AIR GIVEN: -IV FLUIDS -ZOFRAN--NAUSEA IMPROVED -INSULIN -FENTANYL -ZOSYN LABS: -CBC WITH WBC 20.2, HGB 10.7, PLT 435,000 -CMP WITH NA 126, K 4.4, CL 93, CO2 7, ANION GAP 26, BUN 18, CR 1.85, GLU 766, LFT'S NORMAL -MG 1.9 -AMYLASE / LIPASE NORMAL -LACTIC ACID 1.77 -SED RATE 33 -CRP 6.95 -UA WITH 1+ PROTEIN, 2+ GLUCOSE, 4+ KETONES, 1+LEUKOCYTES, 10/25 WBC, FEW BACTERIA -BETA HYDROXYBUTYRATE 9.98 -ABG PH 7.24, PCO2 21, PO2 60, HCO3 9, TOTAL CO2 9.6 O2 SAT 92% -TROPONIN NEGATIVE SEPSIS PROTOCOL INITIATED ON RECEIVING CBC RESULTS, WITH ELEVATED WBC. 0035--PT C/O CHEST PAIN, BACK PAIN--STATES MOST PAIN IS IN HER BACK, AND FEELS LIKE HER HEART IS POUNDING VITALS ARE UNCHANGED, NO RHYTHM CHANGE ON MONITOR EKG AND TROPONIN ORDERED, WELL CT CHEST/ABDOMEN/PELVIS--PT STATES SHE IS "DEATHLY ALLERGIC" TO IODINE AND SHRIMP--STATES SHE VOMITS UNCONTROLLABLY--SHE HAS NEVER HAD RASH/HIVES/ITCHING OR SWELLING OR DIFFICULTY BREATHING. SHE DECLINES IV CONTRAST. EKG SHOWS SOME MILD ST DEPRESSION ANTERIOR/LATERALLY TROPONIN IS NEGATIVE AT THIS TIME FENTANYL ORDERED--PAIN RELIEVED. VITALS REMAIN STABLE THROUGHOUT ER STAY HR DOWN AND BP UP AT TIME OF ADMIT NAUSEA AND PAIN ARE GONE AT TIME OF ADMIT. ECG Initial ECG Impression Date: Feb 10, 2023 Initial ECG Impression Time: 00:37 Initial ECG Rate: 101 Initial ECG Rhythm: S.Tach (MILD ST DEPRESSION IN V3-V5) Initial ECG Comparisson: Changed (ST DEPRESSION NOW PRESENT COMPARED TO EKG DONE IN 2021) Comment INTERPRETED BY ME Diagnostic Imaging Comments CXR--UNREMARKABLE, PENDING RADIOLOGIST REVIEW CT CHEST/ABDOMEN/PELVIS--PER [facility] VIA FAX AT 4041 -DILATED FLUID FILLED ESOPHAGUS, COULD BE SECONDARY TO REFLUX, LESS LIKELY OBSTRUCTION -NO OTHER ACUTE ABNORMALITY Reviewed: Reviewed by Me Departure Communication (Admissions) 12--SPOKE WITH DR. GTZ, HOSPITALIST FOR [facility]. ACCEPTS PT FOR ADMIT 0019--REPORT TO E-ICU PHYSICIAN. Impression Primary Impression: DKA (diabetic ketoacidosis) Additional Impressions: UTI (urinary tract infection) Sepsis History of [place]'s esophagus Electrolyte imbalance Anemia GERD (gastroesophageal reflux disease) Disposition: ADMITTED INPATIENT Condition: Improved Admissions Decision to Admit Reason: Admit from ER (General) Decision to Admit/Date: Feb 10, 2023 Time/Decision to Admit Time: 00:15 Departure-Patient Inst. Referrals: CAMERON DICKINSON DO (PCP/Family) Primary Care Physician ROSARIO MCFADDEN DO Feb 09, 2023 23:41
[2023-02-09] MEDS ORDERED: SODIUM BICARB 8.4% 50 MEQ/50 ML (ABBOTT) SYR IV ONE (23:45)
[2023-02-09 23:52] LABS: ALBUMIN 3.9 GM/DL (3.2-4.5); POTASSIUM 4.4 MMOL/L (3.6-5.0)
[2023-02-09 23:53] LABS: CALCIUM 8.9 MG/DL (8.5-10.1)
[2023-02-09 23:55] LABS: TOTAL PROTEIN 7.1 GM/DL (6.4-8.2)
[2023-02-09 23:57] LABS: BACTERIA,URINE FEW /HPF; BILIRUBIN,URINE 1+ (NEGATIVE); CLARITY,URINE CLEAR; COLOR,URINE YELLOW; GLUCOSE, URINE (UA) 2+ (NEGATIVE); KETONES,URINE 4+ (NEGATIVE); LEUKOCYTE ESTERASE ,URINE 1+ (NEGATIVE); NITRITE,URINE NEGATIVE (NEGATIVE); PROTEIN,URINE 1+ (NEGATIVE)
[2023-02-09 23:57] LABS: BILIRUBIN,TOTAL 0.5 MG/DL (0.1-1.0)
[2023-02-09 23:58] LABS: CREATININE SERUM 1.85 MG/DL (0.60-1.30)
[2023-02-09 23:58] LABS: AMORPHOUS SEDIMENT,UR FEW AMOR URATES /LPF
[2023-02-10 00:01] LABS: MAGNESIUM 1.9 MG/DL (1.6-2.4)
[2023-02-10 00:05] LABS: LYMPHOCYTES % (MANUAL) 23 %; METAMYELOCYTES % 1 %; MONOCYTES % (MANUAL) 4 %; NEUTROPHILS % (MANUAL) 72 %; RBC MORPH NORMAL
[2023-02-10 00:06] LABS: ERYTHROCYTE SEDIMENTATION RATE 33 MM/HR (0-30)
[2023-02-10] MEDS ORDERED: PIPERACILLIN/Tazobactam 4.5 GM in NS (IVPB) 100 ML 100 ML IV ONE (00:15)
[2023-02-10] MEDS ORDERED: inSUlin (REGULAR) HUMAN 1 UNIT/0.01 ML (CHARGE PER UNIT) IV ONE (00:30)
[2023-02-10] MEDS ORDERED: NS IV 1000 ML 1,000 ML IV SCH ×2 (00:30→02:45)
[2023-02-10] MEDS ORDERED: fentaNYL INJECTION 100 MCG/2 ML VIAL IVP STA (00:39)
[2023-02-10] MEDS ORDERED: PANTOPRAZOLE INJECTION 40 MG VIAL IV ONE (00:45)
[2023-02-10] MEDS ORDERED: ONDANSETRON INJECTION 4 MG/2 ML (SDV) IVP ONE (00:45)
[2023-02-10] MEDS ORDERED: POTASSIUM CL 10MEQ/50ML IVPB 50 ML IV ONE (01:46)
[2023-02-10] MEDS ORDERED: 1/2 NS IV SOLUTION 1000 ML 1,000 ML IV ONE (01:46)
[2023-02-10 02:20] LABS: CALCIUM 7.9 MG/DL (8.5-10.1); CREATININE SERUM 1.46 MG/DL (0.60-1.30); POTASSIUM 3.6 MMOL/L (3.6-5.0)
--- NOTE | 2023-02-10 02:32 | Tele-ICU Progress Note ---
Progress Note Tele ICU 67 yo woman with insulin requiring diabetes using an insulin pump had adjustmen t on low insulin 3 days ago and has been running excessively high glucoses. ED Labs UA+ glucose + ketones, wbcs 10-25 + bacteria Glucose 766 Na 126 K 4.4 Cl 93 Bicarb 7 BUN 18 Creat 1.85 Lactic acid 1.77 Beta hydroxybutyrate 9.98 CBC wbcs 20,200 Hgb 10.7 Plts 435,000 ESR 33 CRP 6.95 In ED cultures obtained , started on Zosyn, DKA protocol initiated. Per video : pt is sleeping, HR 99 sinus with PACs, sats 100% BP 126/36 A/P DKA, Urosepsis DKA Protocol, abx , lab orders are already placed- d/w nursing. Focused Exam Lactate Level 02/09/23 23:50: Lactic Acid Level 1.77 Height, Weight, BMI Height: 5'2.00" Weight: 175lbs. 0.9oz. 79.191254fd; 36.59 BMI Method:Stated Lactic Acid Level Laboratory Tests Test 02/09/23 23:50 Lactic Acid Level 1.77 MMOL/L (0.50-2.00) CESAR ACUÑA DO Feb 10, 2023 02:32
[2023-02-10] MEDS ORDERED: EPINEPHrine 1 MG INJECTION 4 MG in NS (IVPB) 250 ML 248 ML IV SCH (02:45)
[2023-02-10] MEDS: NOREPINEPHRINE 8 MG/250 ML 250 ML IV SCH ×2 (02:45→18:30)
[2023-02-10] MEDS: VASOPRESSIN INJECTION 20 UNIT in NS (IVPB) 100 ML 100 ML IV SCH ×2 (02:45→12:56)
[2023-02-10] MEDS: 1/2 NS IV SOLUTION 1000 ML 1,000 ML IV SCH ×6 (02:51→21:14)
[2023-02-10] MEDS: POTASSIUM CL 10MEQ/50ML IVPB 50 ML IV SCH ×8 (02:52→16:57)
[2023-02-10] MEDS: ONDANSETRON INJECTION 4 MG/2 ML (SDV) IV PRN (03:31)
[2023-02-10 04:20] LABS: BASOPHILS % (AUTO) 0 % (0-10); EOSINOPHILS % (AUTO) 0 % (0-10); HEMATOCRIT 28 % (35-52); LYMPHOCYTES # (AUTO) 0.8 X 10^3 (1.0-4.0); LYMPHOCYTES % (AUTO) 4 % (12-44); MEAN CORPUSCULAR HEMOGLOBIN 28 pg (25-34); MEAN CORPUSCULAR HGB CONC 32 g/dL (32-36); MEAN CORPUSCULAR VOLUME 89 fL (80-99); MEAN PLATELET VOLUME 11.3 fL (9.0-12.2); MONOCYTES # (AUTO) 0.9 X 10^3 (0.0-1.0); MONOCYTES % (AUTO) 5 % (0-12); NEUTROPHILS # (AUTO) 17.3 X 10^3 (1.8-7.8); NEUTROPHILS % (AUTO) 91 % (42-75); PLATELET COUNT 293 10^3/uL (130-400); WHITE BLOOD COUNT 19.1 10^3/uL (4.3-11.0)
[2023-02-10 04:26] LABS: ALBUMIN 3.6 GM/DL (3.2-4.5); CHLORIDE 106 MMOL/L (98-107); POTASSIUM 4.1 MMOL/L (3.6-5.0); SODIUM 134 MMOL/L (135-145)
[2023-02-10 04:27] LABS: CALCIUM 7.8 MG/DL (8.5-10.1)
[2023-02-10 04:28] LABS: TOTAL PROTEIN 6.4 GM/DL (6.4-8.2)
[2023-02-10 04:30] LABS: BILIRUBIN,TOTAL 0.3 MG/DL (0.1-1.0)
[2023-02-10 04:32] LABS: ALKALINE PHOSPHATASE 134 U/L (40-136); CREATININE SERUM 1.44 MG/DL (0.60-1.30); GFR ESTIMATED 40; PHOSPHORUS 2.9 MG/DL (2.3-4.7)
[2023-02-10 04:33] LABS: BUN/CREATININE RATIO 10
[2023-02-10 04:34] LABS: CARBON DIOXIDE 6 MMOL/L (21-32); GLUCOSE 415 MG/DL (70-105)
[2023-02-10 04:35] LABS: ALANINE AMINOTRANSFERASE 20 U/L (0-55); MAGNESIUM 1.7 MG/DL (1.6-2.4)
[2023-02-10] MEDS ORDERED: MAGNESIUM 1 GM/100 ML IVPB 400 ML IV ONE (05:11)
[2023-02-10] MEDS ORDERED: NS IV 500 ML 500 ML IV PRN (05:30)
[2023-02-10] MEDS: MAGNESIUM 1 GM/100 ML IVPB 100 ML IV SCH ×3 (05:30→08:09)
[2023-02-10] MEDS: POTASSIUM CHLORIDE 20 MEQ TABLET PO SCH (06:00)
--- NOTE | 2023-02-10 06:00 | Diagnostic Imaging Report ---
PROCEDURE: CT chest, abdomen, and pelvis without contrast. TECHNIQUE: Multiple contiguous axial images were obtained through the chest, abdomen, and pelvis without the use of intravenous contrast. Auto Exposure Controls were utilized during the CT exam to meet ALARA standards for radiation dose reduction. INDICATION: Nausea, emesis and hyperglycemia. The lungs appear clear. There is no evidence of significant pleural or pericardial fluid. No pathologically enlarged adenopathy is seen. There is fluid distention of the esophagus. This could be due to reflux. There is also distention of the stomach with fluid and gas. Gallbladder surgically absent. There is no evidence of focal hepatic or splenic abnormality. There is no free fluid. No pancreatic, adrenal gland or renal abnormality is seen. There is no evidence of pathologically enlarged adenopathy. There is moderate amount of colonic stool present. No organized fluid collection or focal inflammation is seen. IMPRESSION: Fluid distention of stomach and esophagus. This may reflect gastroesophageal reflux. Clinical correlation would be of use. Otherwise, there is evidence of probable mild constipation. No other acute abnormality is seen. Findings are in agreement with preliminary report. Dictated by: Dictated on workstation # [id number]
[2023-02-10] MEDS ORDERED: PIPERACILLIN/Tazobactam 4.5 GM in NS (IVPB) 100 ML 100 ML IV SCH (06:30)
[2023-02-10] MEDS: D5 1/2 NS 1,000 ML IV 1,000 ML IV SCH ×2 (07:00→17:08)
[2023-02-10 07:41] LABS: POTASSIUM 4.1 MMOL/L (3.6-5.0)
[2023-02-10 07:42] LABS: CALCIUM 7.3 MG/DL (8.5-10.1)
--- NOTE | 2023-02-10 07:42 | Diagnostic Imaging Report ---
INDICATION: Leukocytosis Single AP view of the chest is obtained with comparison made to study of 12/16/2021. FINDINGS: Heart size and pulmonary vascularity are within normal limits, and the lungs are clear, bilaterally. IMPRESSION: Unremarkable chest. Dictated by: Dictated on workstation # [id number]
[2023-02-10 07:46] LABS: CREATININE SERUM 1.27 MG/DL (0.60-1.30)
[2023-02-10] MEDS: PANTOPRAZOLE INJECTION 40 MG VIAL IV SCH (08:09)
--- NOTE | 2023-02-10 10:21 | Tele-ICU Progress Note ---
Subjective Date Seen by a Provider: Feb 10, 2023 Time Seen by a Provider: 10:18 Subjective/Events-last exam (Tele-ICU Physician , Progress Note ) Service provided via interactive audio and video telecommunications E-CARE system to a patient admitted to ICU bed in [facility]. Patient is seen today due to persistent need of ICU care Available chart/ vitals / labs / Images reviewed Video assessment done using teleICU camera, rest of exam as per RN SHE IS ADMITTED WITH DKA AND POSSIBLE UTI. THIS AM TROPONIN INCREASED. NO CP. AG CLOSED AND BLOOD SUGARS IMPROVING. EKG SHOWED T WAVE CHANGES WHICH APPEARS CHRONIC. ADVISED CARDIOLOGY CONSULT AND WEAN INSULIN DRIP IMPRESSION. 1. DKA 2.UTI 3. INCREASED TROPONIN Coordination of care with bedside consultants and primary care physician. I am remotely monitoring this patient from Tele icu station in [place]. I am unable to do the bedside exam, and history/physical and pertinent information is taken from other notes in the computer and bedside staff. Certain portions of this document may have been dictated utilizing voice recognition technology such as [employer]. Inherent to this technology, typographic al and grammatical errors may exist. As much as I am diligent to identify and correct to these mistakes, some errors may remain in the document. Critical care time devoted to this patient today is approximately is-15 minutes. Sepsis Event Evaluation Height, Weight, BMI Height: 5'2.00" Weight: 175lbs. 0.9oz. 79.498197bz; 36.59 BMI Method:Stated Focused Exam Lactate Level 02/09/23 23:50: Lactic Acid Level 1.77 Time of Focused Exam: 00:30 Exam Exam Patient acknowledged, consented, and participated in this virtual visit which was conducted using real time audio/video Vital Signs Date Time Temp Pulse Resp B/P (MAP) Pulse Ox O2 Delivery O2 Flow Rate FiO2 02/10/23 09:15 82 103/41 (61) 91 Room Air 02/10/23 08:00 98 Room Air 02/10/23 07:30 79 106/39 (61) 97 Room Air 02/10/23 07:29 84 02/10/23 06:34 88 114/50 (72) 96 Room Air 02/10/23 06:00 96 96 Room Air 02/10/23 05:34 93 120/43 (70) 93 Room Air 02/10/23 05:00 95 96 Room Air 02/10/23 04:29 98 109/37 (65) 95 Room Air 02/10/23 04:15 96 115/35 (58) 97 Room Air 02/10/23 04:00 96 116/40 (52) 97 Room Air 02/10/23 04:00 97 Room Air 02/10/23 03:45 96 127/46 (71) 98 Room Air 02/10/23 03:30 96 127/50 (76) 99 Room Air 02/10/23 03:15 98 128/50 (80) 99 Room Air 02/10/23 03:00 100 134/47 (67) 98 Room Air 02/10/23 02:45 94 126/50 (78) 100 Room Air 02/10/23 02:30 97 124/41 (66) 99 Room Air 02/10/23 02:15 100 126/36 (69) 99 Room Air 02/10/23 02:00 102 145/42 (83) 99 Room Air 02/10/23 01:33 102 138/55 (86) 98 Room Air 02/10/23 01:32 102 02/10/23 01:31 102 126/63 (70) Room Air 02/10/23 01:30 98 Room Air 02/10/23 01:06 36.4 102 18 103/40 100 Room Air 02/09/23 23:09 36.6 107 16 145/47 (79) 97 Room Air I & O 02/10/23 07:00 Intake Total 3150 ml Output Total 1175 ml Balance 1975 ml Height & Weight Height: 5'2.00" Weight: 175lbs. 0.9oz. 79.820364gt; 36.59 BMI Method:Stated General Appearance: No Apparent Distress, WD/WN, Other (PT WITH ODOR OF K ETOSIS; PT IS NOT HYPERVENTILATING; SHE DOES HAVE SOME GENERALIZED WEAKNESS.) HEENT: PERRL/EOMI, Other (ORAL MUCOSA DRY. 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
--- NOTE | 2023-02-10 11:06 | History & Physical ---
BENTLEY HALL MD, RESIDENT 02/10/23 1106: HPI History of Present Illness: CC: Hyperglycemia Patient states that she had her insulin pump recently changed on of last week. On Friday she began noticing difficulty getting her blood sugars down and had a couple measurements above 400. She did inject 10 units of subcutaneous insulin to help manage this however her sugars continue to remain elevated. In addition, she was having nausea and vomiting and decreased appetite. She thus presented to the ED for further evaluation. Otherwise denied any diarrhea, dysuria, chest pain, shortness of breath, fevers, chills, cough. She does have constipation at baseline. In the ED, she was noted to have metabolic acidosis on ABG, low CO2, elevated anion gap and elevated beta hydroxybutyrate consistent with DKA. In addition she was noted to have a significant leukocytosis to 20.2, was tachycardic and was noted to have a UTI thus consistent with sepsis. She was started on Zosyn and an insulin drip and was admitted to the ICU for further management. This a.m., patient continues to feel quite weak and tired. She still does not feel back to her baseline as of this morning. She is continuing to deny any chest pain, shortness of breath or dysuria. Denies any suprapubic pain at this time. Exam Limitations: no limitations Date seen by provider: Feb 10, 2023 Time Seen by Provider: 08:00 Attending Physician Tyler Miller DO PCP Admitting Physician: Karley Sotomayor DO Attending Physician: Obdulia Murphy MD Consult Date of Admission Feb 10, 2023 at 00:33 Home Medications Home Medications Reviewed patient Home Medication Reconciliation performed by pharmacy medication reconciliations cryptologic technician technical and/or nursing. Patients Allergies have been reviewed. Allergies Coded Allergies: iodine (Verified Allergy, Unknown, VOMITING EXTREME, 12/25/21) shrimp (Verified Allergy, Unknown, EXTREME VOMITING, 12/25/21) cephalexin (Verified Adverse Reaction, Mild, DIARRHEA, 12/25/21) BMI-Kthrcf-Lowypj Hx Patient Social History Drug of Choice: None Former smoker/When Quit: Apr 07, 1993 2nd Hand Smoke Exposure: Yes Recent Hopitalizations: Yes (07/30/2021 - Biopsy for uterus/cervix, 12/16/21 DKA) Alcohol Use?: No Immunizations Up To Date Tetanus Booster (TDap): Unknown Influenza Vaccine Up-to-Date: Yes; Up-to-Date Past Medical History PMHx: Diabetes Depression Hypothyroidism Osteoarthritis SurgHx: Cholecystectomy Appendectomy Ovarian cyst removal Family Medical History Significant Family History: No Pertinent Family Hx Other Significan Family Hx: PAST SURGICAL HISTORY -RA-HYSTERECTOMY/BSO 12/[address] MONTES FOR ENDOMETRIAL HYPERPLASIA AND ATYPIA - EGD/BIOPSIES 10/05/[address] DOW: Pre-Operative Diagnosis Coffee ground emesis, GERD, epigastric pain Post-Operative Diagnosis Gastritis Hiatal Hernia [place]'s Esophagus Procedure & Operative Findings Date of Procedure 10/14/22 Procedure Performed/Findings EGD with bx Family History: Cancer 19 FATHER ( of stomache cancer) Family history: Arthritis G8 BROTHER (bad back) Family history: Gastrointestinal disease 19 MOTHER ( with c-diff) Review of Systems ([facility]) Constitutional: No chills, No fever; weakness EENTM: No throat pain Respiratory: No cough, No short of breath, No wheezing Cardiovascular: No chest pain, No edema, No palpitations Gastrointestinal: No abdominal pain; constipation; No diarrhea; nausea, vomiting Genitourinary: No dysuria Musculoskeletal: No no symptoms reported Skin: No no symptoms reported Psychiatric/Neurological: Denies No Symptoms Reported Reviewed Test Results Reviewed Test Results Lab Laboratory Tests 02/09/23 23:15: Urine Color YELLOW, Urine Clarity CLEAR, Urine pH 5.0, Urine Specific [place] 1.015L, Urine Protein 1+H, Urine Glucose (UA) 2+H, Urine Ketones 4+H, Urine Nitrite NEGATIVE, Urine Bilirubin 1+H, Urine Urobilinogen 0.2, Urine Leukocyte Esterase 1+H, Urine RBC (Auto) TRACEH, Urine RBC 2-5H, Urine WBC 10-25H, Urine Crystals PRESENTH, Urine Amorphous Sediment FEW JOSEPH URATESH, Urine Bacteria FEWH, Urine Casts NONE, Urine Mucus NEGATIVE, Urine Culture Indicated CULTURE PENDING 02/09/23 23:20: White Blood Count 20.2H, Red Blood Count 3.78L, Hemoglobin 10.7L, Hematocrit 34L , Mean Corpuscular Volume 90, Mean Corpuscular Hemoglobin 28, Mean Corpuscular Hemoglobin Concent 32, Red Cell Distribution Width 14.2, Platelet Count 435H, Mean Platelet Volume 11.7, Immature Granulocyte % (Auto) 1, Neutrophils (%) (Auto) 75, Lymphocytes (%) (Auto) 18, Monocytes (%) (Auto) 5, Eosinophils (%) (Auto) 0, Basophils (%) (Auto) 1, Neutrophils # (Auto) 15.2H, Lymphocytes # (Auto) 3.6, Monocytes # (Auto) 1.1H, Eosinophils # (Auto) 0.0, Basophils # (Auto) 0.1, Immature Granulocyte # (Auto) 0.2H, Neutrophils % (Manual) 72, Lymphocytes % (Manual) 23, Monocytes % (Manual) 4, Metamyelocytes % 1, Blood Morphology Comment NORMAL, Erythrocyte Sedimentation Rate 33H, Venous Blood pH 7.26L, Venous Blood Partial Pressure CO2 18L, Venous Blood HCO3 8L, Sodium Level 126L, Potassium Level 4.4, Chloride Level 93L, Carbon Dioxide Level 7*L, Anion Gap 26H, Blood Urea Nitrogen 18, Creatinine 1.85H, Estimat Glomerular Filtration Rate 30, BUN/Creatinine Ratio 10, Glucose Level 766*H, Mean Blood Glucose [Pending], Hemoglobin A1c [Pending], Calcium Level 8.9, Corrected Calcium 9.0, Magnesium Level 1.9, Total Bilirubin 0.5, Aspartate Amino Transf (AST/SGOT) 10, Alanine Aminotransferase (ALT/SGPT) 21, Alkaline Phosphatase 153H, C-Reactive Protein High Sensitivity 6.95H, Total Protein 7.1, Albumin 3.9, Amylase Level 40, Lipase 5L, Beta-Hydroxybutyrate (Chem panel) 9.98H 02/09/23 23:25: Arterial Blood pH 7.24*L, Arterial Blood Partial Pressure CO2 21L, Arterial Blood Partial Pressure O2 60L, Arterial Blood HCO3 9*L, Arterial Blood Total CO2 9.6*L, Arterial Blood Oxygen Saturation 92L, Arterial Blood Base Excess -16.3L, Blood Gas Ventilator Setting NO, Blood Gas Inspired Oxygen ROOM AIR 02/09/23 23:50: Lactic Acid Level 1.77 02/10/23 01:35: Glucometer 491*H 02/10/23 01:51: Sodium Level 135, Potassium Level 3.6, Chloride Level 105, Carbon Dioxide Level 5*L, Anion Gap 25H, Blood Urea Nitrogen 17, Creatinine 1.46H, Estimat Glomerular Filtration Rate 40, BUN/Creatinine Ratio 12, Glucose Level 531*H, Calcium Level 7.9L, Troponin I < 0.028 02/10/23 02:30: Glucometer 415*H 02/10/23 03:35: Glucometer 353H 02/10/23 04:03: White Blood Count 19.1H, Red Blood Count 3.18L, Hemoglobin 9.0L, Hematocrit 28L, Mean Corpuscular Volume 89, Mean Corpuscular Hemoglobin 28, Mean Corpuscular Hemoglobin Concent 32, Red Cell Distribution Width 14.1, Platelet Count 293, Mean Platelet Volume 11.3, Immature Granulocyte % (Auto) 0, Neutrophils (%) (Auto) 91H, Lymphocytes (%) (Auto) 4L, Monocytes (%) (Auto) 5, Eosinophils (%) (Auto) 0, Basophils (%) (Auto) 0, Neutrophils # (Auto) 17.3H, Lymphocytes # (Auto) 0.8L, Monocytes # (Auto) 0.9, Eosinophils # (Auto) 0.0, Basophils # (Auto) 0.0, Immature Granulocyte # (Auto) 0.1, Sodium Level 134L, Potassium Level 4.1, Chloride Level 106, Carbon Dioxide Level 6*L, Anion Gap 22H, Blood Urea Nitrogen 15, Creatinine 1.44H, Estimat Glomerular Filtration Rate 40, BUN/Creatinine Ratio 10, Glucose Level 415*H, Calcium Level 7.8L, Corrected Calcium 8.1L, Phosphorus Level 2.9, Magnesium Level 1.7, Total Bilirubin 0.3, Aspartate Amino Transf (AST/SGOT) 15, Alanine Aminotransferase (ALT/SGPT) 20, Alkaline Phosphatase 134, Troponin I < 0.028, Total Protein 6.4, Albumin 3.6, Beta-Hydroxybutyrate (Chem panel) 20.87H 02/10/23 04:32: Glucometer 322H 02/10/23 05:41: Glucometer 256H 02/10/23 06:30: Glucometer 242H 02/10/23 07:15: Sodium Level 132L, Potassium Level 4.1, Chloride Level 108H, Carbon Dioxide Level 13L, Anion Gap 11, Blood Urea Nitrogen 12, Creatinine 1.27, Estimat Glom erular Filtration Rate 47, BUN/Creatinine Ratio 9, Glucose Level 264H, Calcium Level 7.3L, Troponin I 0.036H 02/10/23 07:29: Glucometer 248H 02/10/23 08:21: Glucometer 256H 02/10/23 09:29: Glucometer 224H 02/10/23 10:31: Glucometer 226H Radiology Chest x-ray (02/10/2023): IMPRESSION: Unremarkable chest. CT chest/abdomen/pelvis (02/10/2023): MPRESSION: Fluid distention of stomach and esophagus. This may reflect gastroesophageal reflux. Clinical correlation would be of use. Otherwise, there is evidence of probable mild constipation. No other acute abnormality is seen. Findings are in agreement with preliminary report. Physical Exam-([facility]) Physical Exam Vital Signs VS - Last 72 Hours, by Label 02/09/23 02/10/23 02/10/23 02/10/23 23:09 01:06 01:30 01:31 Temp 36.6 36.4 Pulse 107 102 102 Resp 16 18 B/P (MAP) 145/47 (79) 103/40 126/63 (70) Pulse Ox 97 100 98 O2 Delivery Room Air Room Air Room Air Room Air 02/10/23 02/10/23 02/10/23 02/10/23 01:32 01:33 02:00 02:15 Pulse 102 102 102 100 B/P (MAP) 138/55 (86) 145/42 (83) 126/36 (69) Pulse Ox 98 99 99 O2 Delivery Room Air Room Air Room Air 02/10/23 02/10/23 02/10/23 02/10/23 02:30 02:45 03:00 03:15 Pulse 97 94 100 98 B/P (MAP) 124/41 (66) 126/50 (78) 134/47 (67) 128/50 (80) Pulse Ox 99 100 98 99 O2 Delivery Room Air Room Air Room Air Room Air 02/10/23 02/10/23 02/10/23 02/10/23 03:30 03:45 04:00 04:00 Pulse 96 96 96 B/P (MAP) 127/50 (76) 127/46 (71) 116/40 (52) Pulse Ox 99 98 97 97 O2 Delivery Room Air Room Air Room Air Room Air 02/10/23 02/10/23 02/10/23 02/10/23 04:15 04:29 05:00 05:34 Pulse 96 98 95 93 B/P (MAP) 115/35 (58) 109/37 (65) 120/43 (70) Pulse Ox 97 95 96 93 O2 Delivery Room Air Room Air Room Air Room Air 02/10/23 02/10/23 02/10/23 02/10/23 06:00 06:34 07:29 07:30 Pulse 96 88 84 79 B/P (MAP) 114/50 (72) 106/39 (61) Pulse Ox 96 96 97 O2 Delivery Room Air Room Air Room Air 02/10/23 02/10/23 02/10/23 02/10/23 08:00 09:15 10:15 11:12 Pulse 82 78 B/P (MAP) 103/41 (61) 108/47 (67) Pulse Ox 98 91 98 98 O2 Delivery Room Air Room Air Room Air Room Air 02/10/23 02/10/23 11:48 12:00 Temp 36.3 Pulse 79 B/P (MAP) Capillary Refill : Less Than 3 Seconds General Appearance: no apparent distress, other (Patient appearing fatigued) HEENT: normal ENT inspection Neck: non-tender, full range of motion Respiratory: chest non-tender, lungs clear, normal breath sounds, no resp iratory distress, no accessory muscle use Cardiovascular: regular rate, rhythm, no edema, no murmur Gastrointestinal: normal bowel sounds, non tender, soft Neurologic/Psychiatric: alert, oriented x 3, other Skin: normal color, warm/dry Assessment/Plan Assessment/Plan Admission Dx DKA, sepsis secondary to UTI Admission Status: Inpatient Order (span 2 midnights) Reason for Inpatient Admission: Requiring ICU admission for insulin drip (1) DKA (diabetic ketoacidosis) Status: Acute Assessment & Plan: Labs consistent with DKA. Likely secondary to malfunctioning insulin pump. May also be due to sepsis secondary to UTI. Plan: Continue insulin drip and fluids per DKA protocol Monitor CMP, beta hydroxybutyrate twice daily for resolution and DKA Plan to switch to subcutaneous insulin once acidosis is resolved (2) UTI (urinary tract infection) Status: Acute Assessment & Plan: UA consistent with UTI. Patient is septic with significant leukocytosis and tachycardia. Tachycardia has resolved as of this morning. Leukocytosis downtrending to 19.1 from 20.2. was being treated with zosyn. Plan: Continue to monitor daily CBC Will switch to IV ceftriaxone today to narrow coverage Follow-up urine culture (3) Sepsis Status: Acute Assessment & Plan: See above (4) Elevated troponin Status: Acute Assessment & Plan: Patient noted to have elevated troponin this morning. She is not having any chest pain and EKG is otherwise consistent with prior. Prior to troponin checks were negative. Plan: Consulting cardiology per eICU recommendations Continue trending troponins. (5) Nausea & vomiting Status: Acute Assessment & Plan: Secondary to DKA. Plan: Continue antiemetics as needed (6) GERD (gastroesophageal reflux disease) Status: Chronic Assessment & Plan: We will restart home medications once med rec has been completed (7) Hypertension Status: Chronic Assessment & Plan: Patient noted to be on blood pressure medications at home. Will hold for now as blood pressures are within normal currently. (8) Hypothyroidism Status: Chronic Assessment & Plan: We will restart home medications once med rec has been completed. OBDULIA MURPHY MD 02/10/23 1250: Home Medications Allergies Coded Allergies: iodine (Verified Allergy, Unknown, VOMITING EXTREME, 12/25/21) shrimp (Verified Allergy, Unknown, EXTREME VOMITING, 12/25/21) cephalexin (Verified Adverse Reaction, Mild, DIARRHEA, 12/25/21) HKG-Glijby-Rrfoet Hx Family Medical History Family History: Cancer 19 FATHER ( of stomache cancer) Family history: Arthritis G8 BROTHER (bad back) Family history: Gastrointestinal disease 19 MOTHER ( with c-diff) Supervisory-Addendum Brief Supervisory Addendum I personally performed the alvarado portions of the visit, discussed case with resident and concur with resident documentation of history, physical exam, assessment and treatment plan unless otherwise noted. BENTLEY HALL MD, RESIDENT Feb 10, 2023 11:06 OBDULIA MURPHY MD Feb 10, 2023 12:50
[2023-02-10] MEDS ORDERED: cefTRIAXone IV/IM 1,000 MG in NS (IVPB) 50 ML 50 ML IV SCH (12:00)
--- NOTE | 2023-02-10 13:16 | Consultation-Cardiology ---
HPI-Cardiology Cardiology Consultation: Date of Consultation 02/10/23 Time Seen by a Provider: 13:00 Date of Admission Attending Physician Cameron Miller DO Admitting Physician Admitting Physician: Karley Sotomayor DO Attending Physician: Lary Grigsby MD Consulting Physician BARBARA PINEDA MD, MA, FACP, FACC, [facility] [place]S Physician requesting consult: Dr Grigsby HPI: Chief Complaint: Reason for Card consult: Elevated troponin 67 yo woman admitted to Dr Grigsby's svce in the early hours of 02/10/23 with poorly controlled blood sugar, nausea, vomiting, and gen malaise. No cp or palp or syncope or shortness of breath. Troponin was found to be minimally elevated and we were asked to see her in consult. At the time of my exam, she says her malaise and n/v have resolved and she feels well. Review of Systems-Cardiology Review of Systems Constitutional: malaise; No weight loss, No weight gain Eyes: No vision change Ears/Nose/Throat: No ear discharge, No nasal drainage, No recent hearing loss Respiratory: As described under HPI Cardiovascular: As described under HPI Gastrointestinal: As described under HPI Genitourinary: No dysuria, No hematuria Musculoskeletal: No back pain, No joint pain Skin: No rash, No ulcerations Psychiatric/Neurological: No seizure, No focal weakness, No syncope Hematologic: No bleeding abnormalities [id number]-Umqggd-Nerzvs Hx Patient Social History Smoking Status: Former Smoker (Quit in the ) Former smoker/When Quit: Apr 07, 1993 2nd Hand Smoke Exposure: Yes Alcohol Use?: No Pt feels they are or have been: No Immunizations Up To Date Tetanus Booster (TDap): Unknown Date of Pneumonia Vaccine: May 22, 2011 Date of Influenza Vaccine: Jan 23, 2021 Past Medical History PMH As described under Assessment. Family Medical History Family Medical History: She does not port fam h/o early CAD Family History: Cancer 19 FATHER ( of stomache cancer) Family history: Arthritis G8 BROTHER (bad back) Family history: Gastrointestinal disease 19 MOTHER ( with c-diff) Allergies and Home Medications Allergies Coded Allergies: iodine (Verified Allergy, Unknown, VOMITING EXTREME, 12/25/21) shrimp (Verified Allergy, Unknown, EXTREME VOMITING, 12/25/21) cephalexin (Verified Adverse Reaction, Mild, DIARRHEA, 12/25/21) Patient Home Medication List Home Medication List Reviewed: Yes Atorvastatin Calcium (Atorvastatin Calcium) 80 Mg Tablet, 80 MG PO HS, (Reported) Entered as Reported by: CHANTEL LAWRENCE on 10/03/22 1204 Bupropion HCl (Bupropion HCl Sr) 150 Mg Tablet.er, 150 MG PO DAILY, (Reported) Entered as Reported by: CHANTEL LAWRENCE on 10/03/22 1204 Celecoxib (Celecoxib) 200 Mg Capsule, 200 MG PO BID, (Reported) Entered as Reported by: CAMERON MALHOTRA on 12/17/21 1419 Duloxetine HCl (Duloxetine HCl) 30 Mg Capsule.dr, 60 MG PO DAILY, (Reported) Entered as Reported by: DANA LAZCANO on 08/13/21 1228 Insulin Aspart (Insulin Aspart) 100 Unit/Ml Vial, UNITS SC UD, (Reported) Entered as Reported by: CAMERON MALHOTRA on 12/17/21 1419 Latanoprost (Xalatan) 2.5 Ml Drops, 1 DROP OU HS, (Reported) Entered as Reported by: CAMERON MALHOTRA on 03/16/20 1027 Levothyroxine Sodium (Levothyroxine) 150 Mcg Capsule, 150 MCG PO DAILY, (Reported) Entered as Reported by: CHANTEL LAWRENCE on 10/03/22 1204 Lisinopril (Lisinopril) 5 Mg Tablet, 5 MG PO DAILY Prescribed by: PAMELA PATEL on 01/01/22 0807 Losartan Potassium (Losartan Potassium) 25 Mg Tablet, 25 MG PO DAILY, (Reported) Entered as Reported by: CHANTEL LAWRENCE on 10/03/22 1204 Magnesium Oxide (Magnesium) 400 Mg Magnesium Tablet, 400 MG PO HS, (Reported) Entered as Reported by: CAMERON MALHOTRA on 12/17/21 1420 Mirabegron (Myrbetriq) 50 Mg Tab.er.24h, 50 MG PO DAILY, (Reported) Entered as Reported by: CAMERON MALHOTRA on 03/16/20 1027 Pantoprazole Sodium (Pantoprazole Sodium) 40 Mg Tablet.dr, 40 MG PO BID, (Reported) Entered as Reported by: CAMERON MALHOTRA on 03/16/20 1027 Potassium Gluconate (Potassium Gluconate) 500 Mg (83 Mg) Tablet, 500 MG PO DAILY, (Reported) Entered as Reported by: CAMERON MALHOTRA on 12/17/21 1420 Sucralfate (Sucralfate) 1 Gram Tablet, 1 GM PO BID, (Reported) Entered as Reported by: CHANTEL LAWRENCE on 10/03/22 1204 Timolol Maleate (Timolol Maleate 0.5%) 5 Ml Drops, 1 DROP OU DAILY, (Reported) Entered as Reported by: CHRISTIANO RODRIGUEZ on 12/21/18 1144 Trazodone HCl (Trazodone HCl) 100 Mg Tablet, 100 MG PO HS, (Reported) Entered as Reported by: CHANTEL LAWRENCE on 10/03/22 1204 Physical Exam-Cardiology Physical Exam Vital Signs/I&O 02/10/23 02/10/23 02/10/23 02/10/23 01:30 01:31 01:32 01:33 Pulse 102 102 102 B/P (MAP) 126/63 (70) 138/55 (86) Pulse Ox 98 98 O2 Delivery Room Air Room Air Room Air 02/10/23 02/10/23 02/10/23 02/10/23 02:00 02:15 02:30 02:45 Pulse 102 100 97 94 B/P (MAP) 145/42 (83) 126/36 (69) 124/41 (66) 126/50 (78) Pulse Ox 99 99 99 100 O2 Delivery Room Air Room Air Room Air Room Air 02/10/23 02/10/23 02/10/23 02/10/23 03:00 03:15 03:30 03:45 Pulse 100 98 96 96 B/P (MAP) 134/47 (67) 128/50 (80) 127/50 (76) 127/46 (71) Pulse Ox 98 99 99 98 O2 Delivery Room Air Room Air Room Air Room Air 02/10/23 02/10/23 02/10/23 02/10/23 04:00 04:00 04:15 04:29 Pulse 96 96 98 B/P (MAP) 116/40 (52) 115/35 (58) 109/37 (65) Pulse Ox 97 97 97 95 O2 Delivery Room Air Room Air Room Air Room Air 02/10/23 02/10/23 02/10/23 02/10/23 05:00 05:34 06:00 06:34 Pulse 95 93 96 88 B/P (MAP) 120/43 (70) 114/50 (72) Pulse Ox 96 93 96 96 O2 Delivery Room Air Room Air Room Air Room Air 02/10/23 02/10/23 02/10/23 02/10/23 07:29 07:30 08:00 09:15 Pulse 84 79 82 B/P (MAP) 106/39 (61) 103/41 (61) Pulse Ox 97 98 91 O2 Delivery Room Air Room Air Room Air 02/10/23 02/10/23 02/10/23 02/10/23 10:15 11:12 11:48 12:00 Temp 36.3 Pulse 78 79 B/P (MAP) 108/47 (67) Pulse Ox 98 98 O2 Delivery Room Air Room Air 02/10/23 00:00 Intake Total 1000 ml Balance 1000 ml Capillary Refill : Less Than 3 Seconds Constitutional: AAO x 3, well-developed, well-nourished HEENT: EOMI, hearing is well preserved; No xanthelasmas are seen Neck: carotid pulses are 2 + bilaterally, with good upstrokes Respiratory: No accessory muscle use; chest expansion is symmetric, chest is bilaterally symmetric, other (good, bilat air entry) Cardiovascular: regular rate-rhythm, S1 and S2, systolic murmur (soft LULY at card base) Gastrointestinal: No tender; soft; No guarding, No rebound, No audible bowel sounds Extremities: No clubbing, No cyanosis, No significant edema Neurologic/Psychiatric: oriented x 3, other (moves all limbs equally) Skin: normal color, warm/dry; No cyanosis, No cool, No diaphoresis; pallor Data Review Labs Laboratory Tests 02/09/23 23:15: Urine Color YELLOW, Urine Clarity CLEAR, Urine pH 5.0, Urine Specific [place] 1.015L, Urine Protein 1+H, Urine Glucose (UA) 2+H, Urine Ketones 4+H, Urine Nitrite NEGATIVE, Urine Bilirubin 1+H, Urine Urobilinogen 0.2, Urine Leukocyte Esterase 1+H, Urine RBC (Auto) TRACEH, Urine RBC 2-5H, Urine WBC 10-25H, Urine Crystals PRESENTH, Urine Amorphous Sediment FEW JOSEPH URATESH, Urine Bacteria FEWH, Urine Casts NONE, Urine Mucus NEGATIVE, Urine Culture Indicated CULTURE PENDING 02/09/23 23:20: White Blood Count 20.2H, Red Blood Count 3.78L, Hemoglobin 10.7L, Hematocrit 34L , Mean Corpuscular Volume 90, Mean Corpuscular Hemoglobin 28, Mean Corpuscular Hemoglobin Concent 32, Red Cell Distribution Width 14.2, Platelet Count 435H, Mean Platelet Volume 11.7, Immature Granulocyte % (Auto) 1, Neutrophils (%) (Auto) 75, Lymphocytes (%) (Auto) 18, Monocytes (%) (Auto) 5, Eosinophils (%) (Auto) 0, Basophils (%) (Auto) 1, Neutrophils # (Auto) 15.2H, Lymphocytes # (Auto) 3.6, Monocytes # (Auto) 1.1H, Eosinophils # (Auto) 0.0, Basophils # (Auto) 0.1, Immature Granulocyte # (Auto) 0.2H, Neutrophils % (Manual) 72, Lymphocytes % (Manual) 23, Monocytes % (Manual) 4, Metamyelocytes % 1, Blood Morphology Comment NORMAL, Erythrocyte Sedimentation Rate 33H, Venous Blood pH 7.26L, Venous Blood Partial Pressure CO2 18L, Venous Blood HCO3 8L, Sodium Level 126L, Potassium Level 4.4, Chloride Level 93L, Carbon Dioxide Level 7*L, Anion Gap 26H, Blood Urea Nitrogen 18, Creatinine 1.85H, Estimat Glomerular Filtration Rate 30, BUN/Creatinine Ratio 10, Glucose Level 766*H, Calcium Level 8.9, Corrected Calcium 9.0, Magnesium Level 1.9, Total Bilirubin 0.5, Aspartate Amino Transf (AST/SGOT) 10, Alanine Aminotransferase (ALT/SGPT) 21, Alkaline Phosphatase 153H, C-Reactive Protein High Sensitivity 6.95H, Total Protein 7.1, Albumin 3.9, Amylase Level 40, Lipase 5L, Beta-Hydroxybutyrate (Chem panel) 9.98H 02/09/23 23:25: Arterial Blood pH 7.24*L, Arterial Blood Partial Pressure CO2 21L, Arterial Bloo d Partial Pressure O2 60L, Arterial Blood HCO3 9*L, Arterial Blood Total CO2 9.6*L, Arterial Blood Oxygen Saturation 92L, Arterial Blood Base Excess -16.3L, Blood Gas Ventilator Setting NO, Blood Gas Inspired Oxygen ROOM AIR 02/09/23 23:50: Lactic Acid Level 1.77 02/10/23 01:35: Glucometer 491*H 02/10/23 01:51: Sodium Level 135, Potassium Level 3.6, Chloride Level 105, Carbon Dioxide Level 5*L, Anion Gap 25H, Blood Urea Nitrogen 17, Creatinine 1.46H, Estimat Glomerular Filtration Rate 40, BUN/Creatinine Ratio 12, Glucose Level 531*H, Calcium Level 7.9L, Troponin I < 0.028 02/10/23 02:30: Glucometer 415*H 02/10/23 03:35: Glucometer 353H 02/10/23 04:03: White Blood Count 19.1H, Red Blood Count 3.18L, Hemoglobin 9.0L, Hematocrit 28L, Mean Corpuscular Volume 89, Mean Corpuscular Hemoglobin 28, Mean Corpuscular Hemoglobin Concent 32, Red Cell Distribution Width 14.1, Platelet Count 293, Mean Platelet Volume 11.3, Immature Granulocyte % (Auto) 0, Neutrophils (%) (Auto) 91H, Lymphocytes (%) (Auto) 4L, Monocytes (%) (Auto) 5, Eosinophils (%) (Auto) 0, Basophils (%) (Auto) 0, Neutrophils # (Auto) 17.3H, Lymphocytes # (Auto) 0.8L, Monocytes # (Auto) 0.9, Eosinophils # (Auto) 0.0, Basophils # (Auto) 0.0, Immature Granulocyte # (Auto) 0.1, Sodium Level 134L, Potassium Level 4.1, Chloride Level 106, Carbon Dioxide Level 6*L, Anion Gap 22H, Blood Urea Nitrogen 15, Creatinine 1.44H, Estimat Glomerular Filtration Rate 40, B UN/Creatinine Ratio 10, Glucose Level 415*H, Calcium Level 7.8L, Corrected Calcium 8.1L, Phosphorus Level 2.9, Magnesium Level 1.7, Total Bilirubin 0.3, Aspartate Amino Transf (AST/SGOT) 15, Alanine Aminotransferase (ALT/SGPT) 20, Alkaline Phosphatase 134, Troponin I < 0.028, Total Protein 6.4, Albumin 3.6, B eta-Hydroxybutyrate (Chem panel) 20.87H 02/10/23 04:32: Glucometer 322H 02/10/23 05:41: Glucometer 256H 02/10/23 06:30: Glucometer 242H 02/10/23 07:15: Sodium Level 132L, Potassium Level 4.1, Chloride Level 108H, Carbon Dioxide Level 13L, Anion Gap 11, Blood Urea Nitrogen 12, Creatinine 1.27, Estimat Glomerular Filtration Rate 47, BUN/Creatinine Ratio 9, Glucose Level 264H, Calcium Level 7.3L, Troponin I 0.036H 02/10/23 07:29: Glucometer 248H 02/10/23 08:21: Glucometer 256H 02/10/23 09:29: Glucometer 224H 02/10/23 10:31: Glucometer 226H 02/10/23 11:36: Glucometer 281H 02/10/23 12:25: Glucometer 210H 02/10/23 13:00: A/P-Cardiology Assessment/Admission Diagnosis Minimal troponin elevation of unclear etiology (prob minimal type 2 AL due to sepsis) - no evidence of ACS DKA Sepsis due to UTI Discussion and Recomendations * Treat sepsis and DKA * Monitor labs BARBARA PINEDA MD FACP FAC CCDS Feb 10, 2023 13:16
[2023-02-10 13:21] LABS: POTASSIUM 3.5 MMOL/L (3.6-5.0)
[2023-02-10 13:23] LABS: CALCIUM 7.3 MG/DL (8.5-10.1)
[2023-02-10 13:27] LABS: CREATININE SERUM 1.13 MG/DL (0.60-1.30)
[2023-02-10] MEDS ORDERED: TRAZ150T72 PO ×2 (13:27)
[2023-02-10] MEDS ORDERED: BUPR300T98 PO ×2 (13:27)
[2023-02-10] MEDS ORDERED: LEVO150T6 PO ×2 (13:27)
[2023-02-10] MEDS ORDERED: MELA5TAB14 PO ×2 (13:27)
[2023-02-10] MEDS ORDERED: INSU100V42 SQ ×2 (14:00)
[2023-02-10] MEDS ORDERED: ASPIRIN 325 MG TABLET PO ONE (14:45)
[2023-02-10] MEDS ORDERED: CLOPIDOGREL 300 MG TABLET PO ONE (14:45)
[2023-02-10] MEDS ORDERED: INSULIN NPH SQ SCH (15:00)
[2023-02-10] MEDS ORDERED: POTASSIUM CHLORIDE 20 MEQ TABLET PO NR (16:15)
[2023-02-10] MEDS: inSUlin DETERMIR 1 UNIT/0.01 ML (CHARGE PER UNIT) SQ SCH (16:49)
[2023-02-10] MEDS ORDERED: BENZOCAINE LOZENGES 1 EACH PO PRN (17:00)
[2023-02-10] MEDS: inSUlin ASPART 1 UNIT/0.01 ML (PER UNIT) SC SCH ×2 (18:00→20:37)
[2023-02-10] MEDS: fentaNYL INJECTION 100 MCG/2 ML VIAL IV PRN ×2 (20:38→23:05)
[2023-02-11] MEDS: VASOPRESSIN INJECTION 20 UNIT in NS (IVPB) 100 ML 100 ML IV SCH (01:03)
[2023-02-11] MEDS: 1/2 NS IV SOLUTION 1000 ML 1,000 ML IV SCH ×3 (03:36→10:45)
[2023-02-11] MEDS: fentaNYL INJECTION 100 MCG/2 ML VIAL IV PRN ×2 (04:30→19:39)
[2023-02-11 04:34] LABS: BASOPHILS % (AUTO) 0 % (0-10); EOSINOPHILS % (AUTO) 0 % (0-10); HEMATOCRIT 27 % (35-52); HEMOGLOBIN 9.1 g/dL (11.5-16.0); LYMPHOCYTES # (AUTO) 1.6 10^3/uL (1.0-4.0); LYMPHOCYTES % (AUTO) 28 % (12-44); MEAN CORPUSCULAR HEMOGLOBIN 28 pg (25-34); MEAN CORPUSCULAR HGB CONC 33 g/dL (32-36); MEAN CORPUSCULAR VOLUME 85 fL (80-99); MEAN PLATELET VOLUME 11.2 fL (9.0-12.2); MONOCYTES # (AUTO) 0.5 10^3/uL (0.0-1.0); MONOCYTES % (AUTO) 9 % (0-12); NEUTROPHILS # (AUTO) 3.5 10^3/uL (1.8-7.8); NEUTROPHILS % (AUTO) 62 % (42-75); PLATELET COUNT 190 10^3/uL (130-400); WHITE BLOOD COUNT 5.6 10^3/uL (4.3-11.0)
[2023-02-11 04:47] LABS: ALBUMIN 2.9 GM/DL (3.2-4.5); POTASSIUM 3.5 MMOL/L (3.6-5.0)
[2023-02-11 04:48] LABS: CALCIUM 7.6 MG/DL (8.5-10.1)
[2023-02-11 04:50] LABS: TOTAL PROTEIN 5.2 GM/DL (6.4-8.2)
[2023-02-11 04:51] LABS: BILIRUBIN,TOTAL 0.2 MG/DL (0.1-1.0)
[2023-02-11 04:53] LABS: CREATININE SERUM 0.92 MG/DL (0.60-1.30); PHOSPHORUS 1.4 MG/DL (2.3-4.7)
[2023-02-11 04:56] LABS: MAGNESIUM 1.9 MG/DL (1.6-2.4)
[2023-02-11] MEDS: POTASSIUM CL 10MEQ/50ML IVPB 50 ML IV SCH (05:16)
[2023-02-11] MEDS: MAGNESIUM 1 GM/100 ML IVPB 100 ML IV SCH (05:16)
[2023-02-11] MEDS: POTASSIUM CHLORIDE 20 MEQ TABLET PO SCH (05:16)
[2023-02-11] MEDS: inSUlin ASPART 1 UNIT/0.01 ML (PER UNIT) SC SCH ×7 (05:16→20:09)
--- NOTE | 2023-02-11 07:39 | Tele-ICU Progress Note ---
Subjective Date Seen by a Provider: Feb 11, 2023 Time Seen by a Provider: 07:35 Subjective/Events-last exam (Tele-ICU Physician , Progress Note ) Service provided via interactive audio and video telecommunications [facility] s yste to a patient admitted to ICU bed in [facility]. Patient is seen today due to persistent need of ICU care Available chart/ vitals / labs / Images reviewed Video assessment done using teleICU camera, rest of exam as per RN Being treated for DKA and UTI This am glu 107, HCO3 20, AG 6, Cr 0.92, BUN 4, LFT's still elevated AST 218, ALT 84, yesterday troponin mild elevated ! 0.331, Urine growing pseudmonas, Now on IV Cefepime await sensitivities. On DPT for elevated troponin, EKG shows ST depression, non specific No nausea or vomiting Off insulin drip, now on 20 U Detimer bid, and 5 Units AC, also sliding scale, eating keeping food down Other PMH Hx of [place]'s esophagus, hiatal hernia, CT chest and abd shows fluid distension of esophagus Sepsis Event Evaluation Height, Weight, BMI Height: 5'2.00" Weight: 175lbs. 0.9oz. 79.639050fu; 36.59 BMI Method:Stated Focused Exam Lactate Level 02/09/23 23:50: Lactic Acid Level 1.77 Time of Focused Exam: 00:30 Exam Exam Patient acknowledged, consented, and participated in this virtual visit which was conducted using real time audio/video Vital Signs Date Time Temp Pulse Resp B/P (MAP) Pulse Ox O2 Delivery O2 Flow Rate FiO2 02/11/23 07:17 84 02/11/23 06:08 72 141/36 (78) 92 Room Air 02/11/23 05:08 77 132/59 (72) 92 Room Air 02/11/23 04:00 97 Room Air 02/11/23 04:00 36.5 02/11/23 03:08 73 120/58 (79) 92 Room Air 02/11/23 02:08 75 122/50 (80) 96 Room Air 02/11/23 01:08 78 125/49 (74) 91 Room Air 02/11/23 01:00 75 02/11/23 00:08 79 126/41 (59) 90 Room Air 02/10/23 23:59 97 Room Air 02/10/23 23:08 77 116/42 (69) 97 Room Air 02/10/23 22:08 80 127/54 (89) 95 Room Air 02/10/23 21:08 76 128/52 (90) 94 Room Air 02/10/23 20:08 89 139/59 (73) 96 Room Air 02/10/23 20:00 97 Room Air 02/10/23 19:51 37.3 02/10/23 19:27 88 106/64 (80) 96 Room Air 02/10/23 19:00 87 02/10/23 17:15 89 106/46 (66) 98 Room Air 02/10/23 16:15 91 94/79 (84) 95 Room Air 02/10/23 16:00 97 Room Air 02/10/23 15:46 36.9 02/10/23 15:15 82 121/53 (75) 93 Room Air 02/10/23 14:15 76 119/51 (73) 100 Room Air 02/10/23 13:15 85 103/58 (73) 97 Room Air 02/10/23 12:15 79 124/45 (71) 99 Room Air 02/10/23 12:00 79 02/10/23 11:48 36.3 02/10/23 11:15 86 126/85 (99) 98 Room Air 02/10/23 11:12 98 Room Air 02/10/23 10:15 78 108/47 (67) 98 Room Air 02/10/23 09:15 82 103/41 (61) 91 Room Air 02/10/23 08:00 98 Room Air I & O 02/11/23 07:00 Intake Total 2845 ml Output Total 4550 ml Balance -1705 ml Height & Weight Height: 5'2.00" Weight: 175lbs. 0.9oz. 79.085831st; 36.59 BMI Method:Stated General Appearance: No Apparent Distress, WD/WN, Other (PT WITH ODOR OF KETOSIS; PT IS NOT HYPERVENTILATING; SHE DOES HAVE SOME GENERALIZED WEAKNESS.) HEENT: PERRL/EOMI, Other (ORAL MUCOSA DRY. 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
--- NOTE | 2023-02-11 08:50 | Progress Note - Cardiology ---
Cardiology SOAP Progress Note Objective: I&O/Vital Signs 02/11/23 02/12/23 02/12/23 23:20 03:17 07:39 Temp 36.7 36.8 36.3 Pulse 79 78 67 Resp 18 18 16 B/P (MAP) 138/94 (109) 165/74 (104) 152/81 (104) Pulse Ox 95 95 96 O2 Delivery Room Air Room Air Room Air 02/12/23 00:00 Intake Total 2210 ml Output Total 1950 ml Balance 260 ml Weight (Pounds): 175 Weight (Ounces): 0.9 Weight (Calculated Kilograms): 79.683908 Constitutional: AAO x 3, well-developed, well-nourished Respiratory: No accessory muscle use; chest expansion is symmetric, chest is bilaterally symmetric, other (good, bilat air entry) Cardiovascular: regular rate-rhythm, S1 and S2, systolic murmur (soft LULY at card base) Gastrointestional: No tender; soft; No guarding, No rebound, No audible bowel sounds Extremities: No clubbing, No cyanosis, No significant edema Neurologic/Psychiatric: oriented x 3, other (moves all limbs equally) Skin: normal color, warm/dry; No cyanosis, No cool, No diaphoresis; pallor Results/Procedures: Labs Laboratory Tests 02/11/23 11:16: Glucometer 278H 02/11/23 16:19: Glucometer 262H 02/11/23 19:44: Glucometer 216H 02/12/23 05:20: White Blood Count 2.2L, Red Blood Count 3.43L, Hemoglobin 9.5L, Hematocrit 29L, Mean Corpuscular Volume 86, Mean Corpuscular Hemoglobin 28, Mean Corpuscular Hemoglobin Concent 32, Red Cell Distribution Width 14.0, Platelet Count 150, Mean Platelet Volume 11.3, Immature Granulocyte % (Auto) 0, Neutrophils (%) (Auto) 40L, Lymphocytes (%) (Auto) 51H, Monocytes (%) (Auto) 7, Eosinophils (%) (Auto) 2, Basophils (%) (Auto) 1, Neutrophils # (Auto) 0.9L, Lymphocytes # (Aut o) 1.1, Monocytes # (Auto) 0.2, Eosinophils # (Auto) 0.0, Basophils # (Auto) 0.0, Immature Granulocyte # (Auto) 0.0, Prothrombin Time 13.2, INR Comment 1.0, Activated Partial Thromboplast Time 27, Sodium Level 132L, Potassium Level 4.3, Chloride Level 101, Carbon Dioxide Level 22, Anion Gap 9, Blood Urea Nitrogen 4L , Creatinine 0.82, Estimat Glomerular Filtration Rate 79, BUN/Creatinine Ratio 5, Glucose Level 355H, Calcium Level 8.0L, Corrected Calcium 8.9, Phosphorus Level 2.6, Magnesium Level 1.7, Total Bilirubin 0.6, Aspartate Amino Transf (AST/SGOT) 2017#H, Alanine Aminotransferase (ALT/SGPT) 1125#H, Alkaline Phosphatase 214H, Total Protein 5.5L, Albumin 2.9L, Beta-Hydroxybutyrate (Chem panel) 0.57H 02/12/23 05:21: Glucometer 351H Microbiology 02/10/23 Blood Culture - Preliminary, Resulted 02/10/23 MRSA Screen - Final, Complete MRSA not isolated 02/09/23 Urine Culture - Preliminary, Resulted Probable Pseudomonas Procedures NAME: FREDI TAPIA [facility] REC#: [id number] PT STATUS: ADM IN : 1955 PHYSICIAN: ROSARIO MCFADDEN DO ADMIT DATE: 02/10/23/ICU Signed Date of Exam:02/10/23 CT CHEST/ABDOMEN/PELVIS WO PROCEDURE: CT chest, abdomen, and pelvis without contrast. TECHNIQUE: Multiple contiguous axial images were obtained through the chest, abdomen, and pelvis without the use of intravenous contrast. Auto Exposure Controls were utilized during the CT exam to meet ALARA standards for radiation dose reduction. INDICATION: Nausea, emesis and hyperglycemia. The lungs appear clear. There is no evidence of significant pleural or pericardial fluid. No pathologically enlarged adenopathy is seen. There is fluid distention of the esophagus. This could be due to reflux. There is also distention of the stomach with fluid and gas. Gallbladder surgically absent. There is no evidence of focal hepatic or splenic abnormality. There is no free fluid. No pancreatic, adrenal gland or renal abnormality is seen. There is no evidence of pathologically enlarged adenopathy. There is moderate amount of colonic stool present. No organized fluid collection or focal inflammation is seen. IMPRESSION: Fluid distention of stomach and esophagus. This may reflect gastroesophageal reflux. Clinical correlation would be of use. Otherwise, there is evidence of probable mild constipation. No other acute abnormality is seen. Findings are in agreement with preliminary report. Dictated by: Dictated on workstation # [id number] Dict: 02/10/23 0555 Trans: 02/10/23 0842 MICHEL [id number] Interpreted by: SRINIVAS CASTANEDA MD Electronically signed by: SRINIVAS CASTANEDA MD 02/10/23 0 A/P: Assessment: Minimal troponin elevation of unclear etiology (prob minimal type 2 NE due to sepsis) - trending down DKA Sepsis due to UTI AST/ALT rising - management per medical services IV dye allergy Plan: * Type 2 NE secondary to sepsis and DKA vs NSTEMI * troponin trending down * Echocardiogram today * Discussed cardiac cath, procedure, risks, benefits. She does not wish to proceed at this time, but states she will let us know if she changes her mind * Management of sepsis and DKA * Monitor labs BHAVIK LAZCANO Feb 11, 2023 08:50
[2023-02-11] MEDS ORDERED: POTASSIUM CHLORIDE 20 MEQ TABLET PO ONE (09:00)
[2023-02-11] MEDS: inSUlin DETERMIR 1 UNIT/0.01 ML (CHARGE PER UNIT) SQ SCH (09:02)
[2023-02-11] MEDS: PANTOPRAZOLE INJECTION 40 MG VIAL IV SCH (09:02)
[2023-02-11] MEDS: CEFEPIME 1,000 MG/NS 50 ML IVPB IV SCH ×6 (09:02→20:01)
[2023-02-11] MEDS: ASPIRIN 81 MG CHEWABLE TABLET PO SCH (09:03)
[2023-02-11] MEDS: CLOPIDOGREL 75 MG TABLET PO SCH (09:04)
[2023-02-11] MEDS: POT Phosphate/NA Phosphate TABLET PO SCH ×4 (09:06→19:37)
[2023-02-11] MEDS: NOREPINEPHRINE 8 MG/250 ML 250 ML IV SCH (10:10)
--- NOTE | 2023-02-11 12:02 | Progress Note ---
BENTLEY HALL MD, RESIDENT 02/11/23 1202: Subjective Subjective/Events-last exam Patient is doing well today. Is tolerating oral intake at this time. Understands that she will have to do insulin injections until she is able to get her insulin pump evaluated in the outpatient. Has no other concerns today. Review of Systems General: No Chills, No Fatigue HEENT: No Head Aches Pulmonary: No Dyspnea, No Cough Cardiovascular: No: Chest Pain, Edema Gastrointestinal: No: Nausea, Vomiting, Diarrhea, Constipation Genitourinary: No Dysuria Neurological: No: Weakness Focused Exam Lactate Level 02/09/23 23:50: Lactic Acid Level 1.77 Time of Focused Exam: 00:30 Objective Exam Last Set of Vital Signs Vital Signs Date Time Temp Pulse Resp B/P (MAP) Pulse Ox O2 Delivery O2 Flow Rate FiO2 02/11/23 10:00 75 144/59 (87) 93 Room Air 02/11/23 08:30 37.0 02/10/23 01:06 18 Capillary Refill : Less Than 3 Seconds I&O Intake and Output 02/11/23 00:00 Intake Total 4745 ml Output Total 4075 ml Balance 670 ml Intake Oral 995 ml IV Total 3750 ml Output Urine Total 4075 ml Daily Weight Change Yes, 2-13 lbs General: Alert, Oriented X3 HEENT: Atraumatic Neck: Supple Lungs: Clear to Auscultation Heart: Regular Rate, No Murmurs Abdomen: Normal Bowel Sounds, Soft, No Tenderness Extremities: No Edema Neuro: Normal Speech Results/Procedures Lab Laboratory Tests 02/10/23 12:25: Glucometer 210H 02/10/23 13:00: Sodium Level 133L, Potassium Level 3.5L, Chloride Level 110H, Carbon Dioxide Level 18L, Anion Gap 5, Blood Urea Nitrogen 8, Creatinine 1.13, Estimat Glomerular Filtration Rate 54, BUN/Creatinine Ratio 7, Glucose Level 229H, Calcium Level 7.3L, Troponin I 0.331*H 02/10/23 13:32: Glucometer 191H 02/10/23 14:41: Glucometer 171H 02/10/23 15:25: Glucometer 156H 02/10/23 16:28: Glucometer 142H 02/10/23 18:33: Glucometer 177H 02/10/23 19:20: Glucometer 203H 02/10/23 20:35: Glucometer 250H 02/10/23 22:58: Glucometer 214H 02/11/23 04:13: White Blood Count 5.6, Red Blood Count 3.23L, Hemoglobin 9.1L, Hematocrit 27L, Mean Corpuscular Volume 85, Mean Corpuscular Hemoglobin 28, Mean Corpuscular Hemoglobin Concent 33, Red Cell Distribution Width 14.2, Platelet Count 190, Mean Platelet Volume 11.2, Immature Granulocyte % (Auto) 0, Neutrophils (%) (Auto) 62, Lymphocytes (%) (Auto) 28, Monocytes (%) (Auto) 9, Eosinophils (%) (Auto) 0, Basophils (%) (Auto) 0, Neutrophils # (Auto) 3.5, Lymphocytes # (Auto) 1.6, Monocytes # (Auto) 0.5, Eosinophils # (Auto) 0.0, Basophils # (Auto) 0.0, Immature Granulocyte # (Auto) 0.0, Sodium Level 137, Potassium Level 3.5L, Chloride Level 111H, Carbon Dioxide Level 20L, Anion Gap 6, Blood Urea Nitrogen 4L, Creatinine 0.92, Estimat Glomerular Filtration Rate 69, BUN/Creatinine Ratio 4, Glucose Level 107H, Calcium Level 7.6L, Corrected Calcium 8.5, Phosphorus Level 1.4L, Magnesium Level 1.9, Total Bilirubin 0.2, Aspartate Amino Transf ( AST/SGOT) 218H, Alanine Aminotransferase (ALT/SGPT) 84H, Alkaline Phosphatase 121, Total Protein 5.2L, Albumin 2.9L, Beta-Hydroxybutyrate (Chem panel) 0.60H 02/11/23 08:51: Glucometer 203H 02/11/23 11:16: Glucometer 278H Microbiology 02/09/23 Urine Culture - Preliminary, Resulted Probable Pseudomonas Radiology Chest x-ray (02/10/2023): IMPRESSION: Unremarkable chest. CT chest/abdomen/pelvis (02/10/2023): MPRESSION: Fluid distention of stomach and esophagus. This may reflect gastroesophageal reflux. Clinical correlation would be of use. Otherwise, there is evidence of probable mild constipation. No other acute abnormality is seen. Findings are in agreement with preliminary report. Assessment/Plan Assessment/Plan Admission Status: Inpatient Order (span 2 midnights) (1) DKA (diabetic ketoacidosis) Status: Acute Assessment & Plan: Labs consistent with DKA. Likely secondary to malfunctioning insulin pump. May also be due to sepsis secondary to UTI. Plan: Insulin drip discontinued yesterday and started patient on detemir 20 units as well as 5 units aspart at mealtime with sliding scale insulin Continue to monitor daily CMP and beta hydroxybutyrate however patient's DKA appears to have improved and resolved at this time. Regular diet as tolerated (2) UTI (urinary tract infection) Status: Acute Assessment & Plan: UA consistent with UTI. Patient is septic with significant leukocytosis and tachycardia. Tachycardia has resolved as of this morning. Leukocytosis resolved as of this morning. Plan: Continue to monitor daily CBC Broadening to IV cefepime as urine culture is growing probable Pseudomonas Follow-up urine culture (3) Elevated troponin Status: Acute Assessment & Plan: Patient noted to have elevated troponin this morning. She is not having any chest pain and EKG is otherwise consistent with prior. Prior to troponin checks were negative. Plan: Cardiology consulted, appreciate recommendations (4) GERD (gastroesophageal reflux disease) Status: Chronic Assessment & Plan: We will restart home medications once med rec has been completed (5) Hypertension Status: Chronic Assessment & Plan: Patient noted to be on blood pressure medications at home. Will hold for now as blood pressures are within normal currently. (6) Hypothyroidism Status: Chronic Assessment & Plan: We will restart home medications once med rec has been completed. OBDULIA MURPHY MD 02/11/23 1525: Supervisory-Addendum Brief Supervisory Addendum I personally performed the alvarado portions of the visit, discussed case with resident and concur with resident documentation of history, physical exam, assessment and treatment plan unless otherwise noted. Pt also has elevated liver enzymes, suspect possibly medication related due to Zosyn and ceftriaxone, will check liver US given significant jump. BENTLEY HALL MD, RESIDENT Feb 11, 2023 12:02 OBDULIA MURPHY MD Feb 11, 2023 15:25
--- NOTE | 2023-02-11 13:11 | Progress Note - Cardiology ---
Cardiology SOAP Progress Note Subjective: Does not report cp or palp or syncope or shortness of breath Gen weakness has improved N/v have resolved Denies focal weakness Objective: I&O/Vital Signs 02/11/23 02/11/23 02/11/23 02/11/23 01:08 02:08 03:08 04:00 Temp 36.5 Pulse 78 75 73 B/P (MAP) 125/49 (74) 122/50 (80) 120/58 (79) Pulse Ox 91 96 92 O2 Delivery Room Air Room Air Room Air 02/11/23 02/11/23 02/11/23 02/11/23 04:00 05:08 06:08 07:00 Pulse 77 72 70 B/P (MAP) 132/59 (72) 141/36 (78) 150/106 (121) Pulse Ox 97 92 92 94 O2 Delivery Room Air Room Air Room Air Room Air 02/11/23 02/11/23 02/11/23 02/11/23 07:17 08:00 08:30 09:00 Temp 37.0 Pulse 84 76 B/P (MAP) 129/66 (87) Pulse Ox 96 97 O2 Delivery Room Air Room Air 02/11/23 02/11/23 02/11/23 10:00 12:21 12:52 Temp 37.2 Pulse 75 82 B/P (MAP) 144/59 (87) Pulse Ox 93 O2 Delivery Room Air 02/11/23 00:00 Intake Total 2575 ml Output Total 2450 ml Balance 125 ml Weight (Pounds): 175 Weight (Ounces): 0.9 Weight (Calculated Kilograms): 79.399737 Constitutional: AAO x 3, well-developed, well-nourished Respiratory: No accessory muscle use; chest expansion is symmetric, chest is bilaterally symmetric, other (good, bilat air entry) Cardiovascular: regular rate-rhythm, S1 and S2, systolic murmur (soft LULY at card base) Gastrointestional: No tender; soft; No guarding, No rebound, No audible bowel sounds Extremities: No clubbing, No cyanosis, No significant edema Neurologic/Psychiatric: oriented x 3, other (moves all limbs equally) Skin: normal color, warm/dry; No cyanosis, No cool, No diaphoresis; pallor Results/Procedures: Labs Laboratory Tests 02/10/23 13:32: Glucometer 191H 02/10/23 14:41: Glucometer 171H 02/10/23 15:25: Glucometer 156H 02/10/23 16:28: Glucometer 142H 02/10/23 18:33: Glucometer 177H 02/10/23 19:20: Glucometer 203H 02/10/23 20:35: Glucometer 250H 02/10/23 22:58: Glucometer 214H 02/11/23 04:13: White Blood Count 5.6, Red Blood Count 3.23L, Hemoglobin 9.1L, Hematocrit 27L, Mean Corpuscular Volume 85, Mean Corpuscular Hemoglobin 28, Mean Corpuscular Hemoglobin Concent 33, Red Cell Distribution Width 14.2, Platelet Count 190, Mean Platelet Volume 11.2, Immature Granulocyte % (Auto) 0, Neutrophils (%) (Auto) 62, Lymphocytes (%) (Auto) 28, Monocytes (%) (Auto) 9, Eosinophils (%) (Auto) 0, Basophils (%) (Auto) 0, Neutrophils # (Auto) 3.5, Lymphocytes # (Auto) 1.6, Monocytes # (Auto) 0.5, Eosinophils # (Auto) 0.0, Basophils # (Auto) 0.0, Immature Granulocyte # (Auto) 0.0, Sodium Level 137, Potassium Level 3.5L, Chloride Level 111H, Carbon Dioxide Level 20L, Anion Gap 6, Blood Urea Nitrogen 4L, Creatinine 0.92, Estimat Glomerular Filtration Rate 69, BUN/Creatinine Ratio 4, Glucose Level 107H, Calcium Level 7.6L, Corrected Calcium 8.5, Phosphorus Level 1.4L, Magnesium Level 1.9, Total Bilirubin 0.2, Aspartate Amino Transf ( AST/SGOT) 218H, Alanine Aminotransferase (ALT/SGPT) 84H, Alkaline Phosphatase 121, Total Protein 5.2L, Albumin 2.9L, Beta-Hydroxybutyrate (Chem panel) 0.60H 02/11/23 08:51: Glucometer 203H 02/11/23 11:16: Glucometer 278H Microbiology 02/09/23 Urine Culture - Preliminary, Resulted Probable Pseudomonas A/P: Assessment: Troponin elevation suggestive of NSTEMI (suspect type 1 [place]) - Echo on 02-11-23: mild conc LVH, hyperdynamic LV without wall motion abnormality, LVEF 75-80%, PASP approx 25 mmHg DKA Sepsis due to UTI IV dye allergy Plan: * We recommended card cath because of her troponin elevations. We discussed cardiac cath, procedure, risks, benefits. She had refused initially but now seems to think she might proceed with it * Management of sepsis and DKA is by the primary care service * Monitor labs BARBARA PINEDA MD FACP [facility] Feb 11, 2023 13:11
--- NOTE | 2023-02-11 13:39 | Diagnostic Imaging Report ---
PROCEDURE: US Hepatic (Liver). TECHNIQUE: Multiple real-time grayscale images were obtained over the right upper quadrant in various projections. INDICATION: Elevated liver function studies. Compared with abdominal CT 12/21/2018. FINDINGS: 18 cm liver is unremarkable in echotexture and appeared homogenous and nonfocal. No liver mass. The portal vein patent and showed normal directional flow. The gallbladder surgically absent. There was no pathological bile duct dilatation. The visible portions of the pancreas normal. Its tail obscured by gas. The unobstructed right kidney 10.8 cm appeared nonacute and nonfocal. No stone, hydroureter or mass. IMPRESSION: Unremarkable right upper quadrant ultrasound. Dictated by: Dictated on workstation # [id number]
[2023-02-11 16:20] VITALS: BP 153/63
[2023-02-11 20:24] VITALS: BP 150/73
[2023-02-11 23:20] VITALS: BP 138/94
[2023-02-12 03:17] VITALS: BP 165/74
[2023-02-12] MEDS: CEFEPIME 1,000 MG/NS 50 ML IVPB IV SCH ×6 (03:25→20:24)
[2023-02-12] MEDS: fentaNYL INJECTION 100 MCG/2 ML VIAL IV PRN ×2 (03:58→20:25)
[2023-02-12] MEDS: inSUlin ASPART 1 UNIT/0.01 ML (PER UNIT) SC SCH ×7 (05:29→20:24)
[2023-02-12 05:45] LABS: BASOPHILS % (AUTO) 1 % (0-10); EOSINOPHILS % (AUTO) 2 % (0-10); HEMATOCRIT 29 % (35-52); HEMOGLOBIN 9.5 g/dL (11.5-16.0); LYMPHOCYTES # (AUTO) 1.1 10^3/uL (1.0-4.0); LYMPHOCYTES % (AUTO) 51 % (12-44); MEAN CORPUSCULAR HEMOGLOBIN 28 pg (25-34); MEAN CORPUSCULAR HGB CONC 32 g/dL (32-36); MEAN CORPUSCULAR VOLUME 86 fL (80-99); MEAN PLATELET VOLUME 11.3 fL (9.0-12.2); MONOCYTES # (AUTO) 0.2 10^3/uL (0.0-1.0); MONOCYTES % (AUTO) 7 % (0-12); NEUTROPHILS # (AUTO) 0.9 10^3/uL (1.8-7.8); NEUTROPHILS % (AUTO) 40 % (42-75); PLATELET COUNT 150 10^3/uL (130-400); WHITE BLOOD COUNT 2.2 10^3/uL (4.3-11.0)
[2023-02-12 06:05] LABS: ALBUMIN 2.9 GM/DL (3.2-4.5); POTASSIUM 4.3 MMOL/L (3.6-5.0)
[2023-02-12 06:08] LABS: TOTAL PROTEIN 5.5 GM/DL (6.4-8.2)
[2023-02-12 06:09] LABS: BILIRUBIN,TOTAL 0.6 MG/DL (0.1-1.0)
[2023-02-12 06:11] LABS: CREATININE SERUM 0.82 MG/DL (0.60-1.30); PHOSPHORUS 2.6 MG/DL (2.3-4.7)
[2023-02-12 06:14] LABS: MAGNESIUM 1.7 MG/DL (1.6-2.4)
[2023-02-12] MEDS: POTASSIUM CHLORIDE 20 MEQ TABLET PO SCH (06:22)
[2023-02-12] MEDS: POTASSIUM CL 10MEQ/50ML IVPB 50 ML IV SCH (06:22)
[2023-02-12] MEDS: MAGNESIUM 1 GM/100 ML IVPB 100 ML IV SCH ×5 (06:24→09:37)
[2023-02-12 07:39] VITALS: BP 152/81
[2023-02-12] MEDS: CLOPIDOGREL 75 MG TABLET PO SCH ×2 (08:34→10:23)
[2023-02-12] MEDS: PANTOPRAZOLE INJECTION 40 MG VIAL IV SCH (09:47)
[2023-02-12 10:11] LABS: PROTHROMBIN TIME PATIENT 13.2 SEC (12.2-14.7)
--- NOTE | 2023-02-12 10:21 | Progress Note - Cardiology ---
Cardiology SOAP Progress Note Subjective: Sitting up in bed States she had abdominal pain last night with nausea, which has resolved this morning No c/o CP, palpitations or SOB Objective: I&O/Vital Signs 02/11/23 02/12/23 02/12/23 23:20 03:17 07:39 Temp 36.7 36.8 36.3 Pulse 79 78 67 Resp 18 18 16 B/P (MAP) 138/94 (109) 165/74 (104) 152/81 (104) Pulse Ox 95 95 96 O2 Delivery Room Air Room Air Room Air 02/12/23 00:00 Intake Total 2210 ml Output Total 1950 ml Balance 260 ml Weight (Pounds): 175 Weight (Ounces): 0.9 Weight (Calculated Kilograms): 79.292895 Constitutional: AAO x 3, well-developed, well-nourished Respiratory: No accessory muscle use; chest expansion is symmetric, chest is bilaterally symmetric, other (good, bilat air entry) Cardiovascular: regular rate-rhythm, S1 and S2, systolic murmur (soft LULY at card base) Gastrointestional: No tender; soft; No guarding, No rebound, No audible bowel sounds Extremities: No clubbing, No cyanosis, No significant edema Neurologic/Psychiatric: oriented x 3, other (moves all limbs equally) Skin: normal color, warm/dry; No cyanosis, No cool, No diaphoresis; pallor Results/Procedures: Labs Laboratory Tests 02/11/23 11:16: Glucometer 278H 02/11/23 16:19: Glucometer 262H 02/11/23 19:44: Glucometer 216H 02/12/23 05:20: White Blood Count 2.2L, Red Blood Count 3.43L, Hemoglobin 9.5L, Hematocrit 29L, Mean Corpuscular Volume 86, Mean Corpuscular Hemoglobin 28, Mean Corpuscular Hemoglobin Concent 32, Red Cell Distribution Width 14.0, Platelet Count 150, M chela Platelet Volume 11.3, Immature Granulocyte % (Auto) 0, Neutrophils (%) (Auto) 40L, Lymphocytes (%) (Auto) 51H, Monocytes (%) (Auto) 7, Eosinophils (%) (Auto) 2, Basophils (%) (Auto) 1, Neutrophils # (Auto) 0.9L, Lymphocytes # (Auto) 1.1, Monocytes # (Auto) 0.2, Eosinophils # (Auto) 0.0, Basophils # (Auto) 0.0, Immature Granulocyte # (Auto) 0.0, Prothrombin Time 13.2, INR Comment 1.0, Activated Partial Thromboplast Time 27, Sodium Level 132L, Potassium Level 4.3, Chloride Level 101, Carbon Dioxide Level 22, Anion Gap 9, Blood Urea Nitrogen 4L , Creatinine 0.82, Estimat Glomerular Filtration Rate 79, BUN/Creatinine Ratio 5, Glucose Level 355H, Calcium Level 8.0L, Corrected Calcium 8.9, Phosphorus Level 2.6, Magnesium Level 1.7, Total Bilirubin 0.6, Aspartate Amino Transf (AST/SGOT) 2017#H, Alanine Aminotransferase (ALT/SGPT) 1125#H, Alkaline Phosphatase 214H, Total Protein 5.5L, Albumin 2.9L, Beta-Hydroxybutyrate (Chem panel) 0.57H 02/12/23 05:21: Glucometer 351H Microbiology 02/10/23 Blood Culture - Preliminary, Resulted 02/10/23 MRSA Screen - Final, Complete MRSA not isolated 02/09/23 Urine Culture - Preliminary, Resulted Probable Pseudomonas A/P: Assessment: Troponin elevation suggestive of NSTEMI (suspect type 1 [place]) - Echo on 02-11-23: mild conc LVH, hyperdynamic LV without wall motion abnormality, LVEF 75-80%, PASP approx 25 mmHg DKA Sepsis due to UTI IV dye allergy Plan: * We recommended card cath because of her troponin elevations. We discussed cardiac cath, procedure, risks, benefits. She had refused initially but now wishes to proceed * Elevated AST/ALT/Alk phos of undetermined etiology - management per medical services * Management of sepsis and DKA is by the primary care service * Monitor labs BHAVIK LAZCANO [facility] Feb 12, 2023 10:21
[2023-02-12] MEDS: ASPIRIN 81 MG CHEWABLE TABLET PO SCH (10:23)
[2023-02-12 11:41] VITALS: BP 125/76
[2023-02-12 12:50] LABS: ALBUMIN 3.2 GM/DL (3.2-4.5); BILIRUBIN,TOTAL 0.6 MG/DL (0.1-1.0); CALCIUM 7.9 MG/DL (8.5-10.1); CREATININE SERUM 0.78 MG/DL (0.60-1.30); POTASSIUM 3.7 MMOL/L (3.6-5.0); TOTAL PROTEIN 5.8 GM/DL (6.4-8.2)
--- NOTE | 2023-02-12 12:56 | Progress Note ---
BENTLEY HALL MD, RESIDENT 02/12/23 1256: Subjective Subjective/Events-last exam Patient doing okay today. She was noting some abdominal tenderness yesterday but is not noting any this morning. Denies any nausea or vomiting this AM. We discussed her elevated liver enzymes and need for cardiac cath which patient will have done tomorrow. She has no other concerns this morning. She denies any alcohol or Tylenol use. States that she has not had alcohol for many weeks but does typically drink 1-2 beers per day. Review of Systems General: No Fatigue HEENT: No Head Aches, No Visual Changes Pulmonary: No Dyspnea, No Cough Cardiovascular: No: Chest Pain, Palpitations Gastrointestinal: No: Nausea, Vomiting, Diarrhea, Constipation Genitourinary: No Dysuria Neurological: No: Weakness Focused Exam Lactate Level 02/09/23 23:50: Lactic Acid Level 1.77 Time of Focused Exam: 00:30 Objective Exam Last Set of Vital Signs Vital Signs Date Time Temp Pulse Resp B/P (MAP) Pulse Ox O2 Delivery O2 Flow Rate FiO2 02/12/23 11:41 36.4 77 16 125/76 (92) 94 Room Air Capillary Refill : Less Than 3 Seconds I&O Intake and Output 02/12/23 00:00 Intake Total 3060 ml Output Total 4200 ml Balance -1140 ml Intake Oral 2960 ml IV Total 100 ml Output Urine Total 4200 ml # Bowel Movements 1 General: Alert, Oriented X3 HEENT: Atraumatic, EOMI Neck: Supple Lungs: Clear to Auscultation, Normal Air Movement Heart: Regular Rate, No Murmurs Abdomen: Normal Bowel Sounds, Soft, Other (Diffuse abdominal tenderness however not worse in 1 spot) Extremities: No Edema Neuro: Normal Speech Psych/Mental Status: Mental Status NL, Mood NL Results/Procedures Lab Laboratory Tests 02/11/23 16:19: Glucometer 262H 02/11/23 19:44: Glucometer 216H 02/12/23 05:20: White Blood Count 2.2L, Red Blood Count 3.43L, Hemoglobin 9.5L, Hematocrit 29L, Mean Corpuscular Volume 86, Mean Corpuscular Hemoglobin 28, Mean Corpuscular Hemoglobin Concent 32, Red Cell Distribution Width 14.0, Platelet Count 150, Mean Platelet Volume 11.3, Immature Granulocyte % (Auto) 0, Neutrophils (%) (Auto) 40L, Lymphocytes (%) (Auto) 51H, Monocytes (%) (Auto) 7, Eosinophils (%) (Auto) 2, Basophils (%) (Auto) 1, Neutrophils # (Auto) 0.9L, Lymphocytes # (Auto) 1.1, Monocytes # (Auto) 0.2, Eosinophils # (Auto) 0.0, Basophils # (Auto) 0.0, Immature Granulocyte # (Auto) 0.0, Prothrombin Time 13.2, INR Comment 1.0, Activated Partial Thromboplast Time 27, Sodium Level 132L, Potassium Level 4.3, Chloride Level 101, Carbon Dioxide Level 22, Anion Gap 9, Blood Urea Nitrogen 4L , Creatinine 0.82, Estimat Glomerular Filtration Rate 79, BUN/Creatinine Ratio 5, Glucose Level 355H, Calcium Level 8.0L, Corrected Calcium 8.9, Phosphorus Level 2.6, Magnesium Level 1.7, Total Bilirubin 0.6, Aspartate Amino Transf (AST/SGOT) 2017#H, Alanine Aminotransferase (ALT/SGPT) 1125#H, Alkaline Phosphatase 214H, Total Protein 5.5L, Albumin 2.9L, Beta-Hydroxybutyrate (Chem panel) 0.57H, Acetaminophen Level < 10L 02/12/23 05:21: Glucometer 351H 02/12/23 11:19: Glucometer 313H 02/12/23 12:25: Sodium Level 134L, Potassium Level 3.7, Chloride Level 100, Carbon Dioxide Level 26, Anion Gap 8, Blood Urea Nitrogen 4L, Creatinine 0.78, Estimat Glomerular Filtration Rate 84, BUN/Creatinine Ratio 5, Glucose Level 351H, Calcium Level 7.9L, Corrected Calcium 8.5, Total Bilirubin 0.6, Alkaline Phosphatase 246H, Total Protein 5.8L, Albumin 3.2 Microbiology 02/10/23 Blood Culture - Preliminary, Resulted 02/10/23 MRSA Screen - Final, Complete MRSA not isolated 02/09/23 Urine Culture - Final, Complete Pseudomonas aeruginosa Radiology Chest x-ray (02/10/2023): IMPRESSION: Unremarkable chest. CT chest/abdomen/pelvis (02/10/2023): MPRESSION: Fluid distention of stomach and esophagus. This may reflect gastroesophageal reflux. Clinical correlation would be of use. Otherwise, there is evidence of probable mild constipation. No other acute abnormality is seen. Findings are in agreement with preliminary report. Assessment/Plan Assessment/Plan (1) DKA (diabetic ketoacidosis) Status: Acute Assessment & Plan: Labs consistent with DKA. Likely secondary to malfunctioning insulin pump. May also be due to sepsis secondary to UTI. Plan: Continue to have high sugars, will increase detemir to 27 units and aspart to 7 units 3 times daily with sliding scale Regular diet as tolerated (2) UTI (urinary tract infection) Status: Acute Assessment & Plan: UA consistent with UTI. Patient is septic with significant leukocytosis and tachycardia. Tachycardia has resolved as of this morning. Leukocytosis resolved as of this morning. Plan: Continue to monitor daily CBC Continue IV cefepime Follow-up urine culture (3) Elevated LFTs Status: Acute Assessment & Plan: Patient noted to have elevated liver enzymes that have slowly been uptrending. Today liver enzymes skyrocketed to AST of 2017 and ALT 1125. Alk phos is 214. Liver ultrasound yesterday was negative. Unknown cause for elevated liver enzymes at this time as patient is denying any alcohol or Tylenol use. Initially thought to be drug-induced however with how high her liver enzymes are, unlikely to be related to her antibiotics. Plan: We will repeat CMP at 1200 Obtaining hepatitis panel, PT/INR, acetaminophen level If continues to be elevated, may have to consult GI at (4) Elevated troponin Status: Acute Assessment & Plan: Patient noted to have elevated troponin. Cardiology planning for cardiac cath tomorrow. Plan: Cardiology consulted, appreciate recommendations (5) GERD (gastroesophageal reflux disease) Status: Chronic Assessment & Plan: We will restart home medications once med rec has been completed (6) Hypertension Status: Chronic Assessment & Plan: Patient noted to be on blood pressure medications at home. Will hold for now as blood pressures are within normal currently. (7) Hypothyroidism Status: Chronic Assessment & Plan: We will restart home medications once med rec has been completed. OBDULIA MURPHY MD 02/12/23 6848: Subjective Subjective/Events-last exam Of note- documented incorrectly, patient actually reports essentially never drinking, perhaps a few drinks at a young age. Supervisory-Addendum Brief Supervisory Addendum I personally performed the alvarado portions of the visit, discussed case with resident and concur with resident documentation of history, physical exam, assessment and treatment plan unless otherwise noted. BENTLEY HALL MD, RESIDENT Feb 12, 2023 12:56 OBDULIA MURPHY MD Feb 12, 2023 15:18
[2023-02-12 16:04] VITALS: BP 137/82
[2023-02-12 20:34] VITALS: BP 154/67
[2023-02-12 21:14] LABS: HEPATITIS C ANTIBODY C Non-Reactive (Non-Reactive)
--- NOTE | 2023-02-12 22:02 | Progress Note - Cardiology ---
Cardiology SOAP Progress Note Subjective: No cp or palp or syncope No shortness of breath at rest No focal weakness Gen weakness and malaise present No n/v Objective: I&O/Vital Signs 02/12/23 02/12/23 02/12/23 11:41 16:04 20:34 Temp 36.4 36.4 36.7 Pulse 77 68 69 Resp 16 16 16 B/P (MAP) 125/76 (92) 137/82 (100) 154/67 (96) Pulse Ox 94 98 98 O2 Delivery Room Air Room Air Room Air 02/12/23 00:00 Intake Total 2210 ml Output Total 1950 ml Balance 260 ml Weight (Pounds): 175 Weight (Ounces): 0.9 Weight (Calculated Kilograms): 79.145237 Constitutional: AAO x 3, well-developed, well-nourished Respiratory: No accessory muscle use; chest expansion is symmetric, chest is bilaterally symmetric, other (good, bilat air entry) Cardiovascular: regular rate-rhythm, S1 and S2, systolic murmur (soft LULY at card base) Gastrointestional: No tender; soft; No guarding, No rebound, No audible bowel sounds Extremities: No clubbing, No cyanosis, No significant edema Neurologic/Psychiatric: oriented x 3, other (moves all limbs equally) Skin: normal color, warm/dry; No cyanosis, No cool, No diaphoresis; pallor Results/Procedures: Labs Laboratory Tests 02/12/23 05:20: White Blood Count 2.2L, Red Blood Count 3.43L, Hemoglobin 9.5L, Hematocrit 29L, Mean Corpuscular Volume 86, Mean Corpuscular Hemoglobin 28, Mean Corpuscular Hemoglobin Concent 32, Red Cell Distribution Width 14.0, Platelet Count 150, Mean Platelet Volume 11.3, Immature Granulocyte % (Auto) 0, Neutrophils (%) (Auto) 40L, Lymphocytes (%) (Auto) 51H, Monocytes (%) (Auto) 7, Eosinophils (%) (Auto) 2, Basophils (%) (Auto) 1, Neutrophils # (Auto) 0.9L, Lymphocytes # (Auto) 1.1, Monocytes # (Auto) 0.2, Eosinophils # (Auto) 0.0, Basophils # (Auto) 0.0, Immature Granulocyte # (Auto) 0.0, Prothrombin Time 13.2, INR Comment 1.0, Activated Partial Thromboplast Time 27, Sodium Level 132L, Potassium Level 4.3, Chloride Level 101, Carbon Dioxide Level 22, Anion Gap 9, Blood Urea Nitrogen 4L , Creatinine 0.82, Estimat Glomerular Filtration Rate 79, BUN/Creatinine Ratio 5, Glucose Level 355H, Calcium Level 8.0L, Corrected Calcium 8.9, Phosphorus Level 2.6, Magnesium Level 1.7, Total Bilirubin 0.6, Aspartate Amino Transf (AST/SGOT) 2017#H, Alanine Aminotransferase (ALT/SGPT) 1125#H, Alkaline Phosphatase 214H, Total Protein 5.5L, Albumin 2.9L, Beta-Hydroxybutyrate (Chem panel) 0.57H, Acetaminophen Level < 10L, Hepatitis A IgM Antibody Non-Reactive, Hepatitis B Surface Antigen Non-Reactive, Hepatitis B Core IgM Antibody Non- Reactive, Hepatitis C Antibody Non-Reactive 02/12/23 05:21: Glucometer 351H 02/12/23 11:19: Glucometer 313H 02/12/23 12:25: Sodium Level 134L, Potassium Level 3.7, Chloride Level 100, Carbon Dioxide Level 26, Anion Gap 8, Blood Urea Nitrogen 4L, Creatinine 0.78, Estimat Glomerular Filtration Rate 84, BUN/Creatinine Ratio 5, Glucose Level 351H, Calcium Level 7.9L, Corrected Calcium 8.5, Total Bilirubin 0.6, Aspartate Amino Transf (AST/SGOT) 1322#H, Alanine Aminotransferase (ALT/SGPT) 1057#H, Alkaline Phosphatase 246H, Total Protein 5.8L, Albumin 3.2 02/12/23 15:58: Glucometer 331H 02/12/23 20:15: Glucometer 324H Microbiology 02/10/23 Blood Culture - Preliminary, Resulted 02/10/23 MRSA Screen - Final, Complete MRSA not isolated 02/09/23 Urine Culture - Final, Complete Pseudomonas aeruginosa A/P: Assessment: Troponin elevation suggestive of NSTEMI (suspect type 1 [place]) - Echo on 02-11-23: mild conc LVH, hyperdynamic LV without wall motion abnormality, LVEF 75-80%, PASP approx 25 mmHg DKA Sepsis due to UTI Marked elevation of liver enzymes of undetermined etiology IV dye allergy Plan: * I spoke with Dr Grigsby. Given marked elevation of liver enzymes of undetermined etiology and lack of any cardiac symptoms, it appears advisable to hold off on cardiac cath at this time. Discussed with Fidel. She concurs * Monitor labs BARBARA PINEDA MD FACP FAC CCDS Feb 12, 2023 22:02
[2023-02-12 23:11] VITALS: BP 138/50
[2023-02-13 03:29] VITALS: BP 164/84
[2023-02-13] MEDS: CEFEPIME 1,000 MG/NS 50 ML IVPB IV SCH ×8 (03:34→21:18)
[2023-02-13] MEDS ORDERED: inSUlin DETERMIR 1 UNIT/0.01 ML (CHARGE PER UNIT) SQ ONE ×2 (05:41→21:00)
[2023-02-13] MEDS: inSUlin ASPART 1 UNIT/0.01 ML (PER UNIT) SC SCH ×6 (05:45→21:18)
[2023-02-13 05:51] LABS: BASOPHILS # (AUTO) 0.1 10^3/uL (0.0-0.1); BASOPHILS % (AUTO) 1 % (0-10); EOSINOPHILS # (AUTO) 0.2 10^3/uL (0.0-0.3); EOSINOPHILS % (AUTO) 4 % (0-10); HEMATOCRIT 36 % (35-52); HEMOGLOBIN 11.9 g/dL (11.5-16.0); LYMPHOCYTES # (AUTO) 1.3 10^3/uL (1.0-4.0); LYMPHOCYTES % (AUTO) 32 % (12-44); MEAN CORPUSCULAR HEMOGLOBIN 28 pg (25-34); MEAN CORPUSCULAR HGB CONC 33 g/dL (32-36); MEAN CORPUSCULAR VOLUME 85 fL (80-99); MEAN PLATELET VOLUME 11.8 fL (9.0-12.2); MONOCYTES # (AUTO) 0.3 10^3/uL (0.0-1.0); MONOCYTES % (AUTO) 6 % (0-12); NEUTROPHILS # (AUTO) 2.4 10^3/uL (1.8-7.8); NEUTROPHILS % (AUTO) 57 % (42-75); PLATELET COUNT 167 10^3/uL (130-400); WHITE BLOOD COUNT 4.2 10^3/uL (4.3-11.0)
[2023-02-13 05:58] LABS: ALBUMIN 3.3 GM/DL (3.2-4.5); POTASSIUM 4.8 MMOL/L (3.6-5.0)
[2023-02-13 06:00] LABS: CALCIUM 8.6 MG/DL (8.5-10.1)
[2023-02-13 06:01] LABS: TOTAL PROTEIN 6.3 GM/DL (6.4-8.2)
[2023-02-13 06:02] LABS: BILIRUBIN,TOTAL 0.6 MG/DL (0.1-1.0)
[2023-02-13 06:04] LABS: CREATININE SERUM 0.92 MG/DL (0.60-1.30); PHOSPHORUS 2.7 MG/DL (2.3-4.7)
[2023-02-13 06:07] LABS: MAGNESIUM 1.8 MG/DL (1.6-2.4)
[2023-02-13] MEDS: POTASSIUM CL 10MEQ/50ML IVPB 50 ML IV SCH (06:13)
[2023-02-13] MEDS: MAGNESIUM 1 GM/100 ML IVPB 100 ML IV SCH ×3 (06:13→07:35)
[2023-02-13] MEDS: POTASSIUM CHLORIDE 20 MEQ TABLET PO SCH (06:14)
[2023-02-13 07:51] VITALS: BP 127/72
[2023-02-13] MEDS ORDERED: inSUlin DETERMIR 1 UNIT/0.01 ML (CHARGE PER UNIT) SQ SCH (09:00)
[2023-02-13] MEDS: CLOPIDOGREL 75 MG TABLET PO SCH (09:28)
[2023-02-13] MEDS: ASPIRIN 81 MG CHEWABLE TABLET PO SCH (09:28)
[2023-02-13] MEDS: PANTOPRAZOLE INJECTION 40 MG VIAL IV SCH (09:28)
[2023-02-13 11:11] VITALS: BP 130/72
--- NOTE | 2023-02-13 11:22 | Progress Note ---
BENTLEY HALL MD, RESIDENT 02/13/23 1122: Subjective Subjective/Events-last exam Patient has no concerns today. He is still having some epigastric abdominal pain that comes and goes. She had ordered some lemonade overnight, got 2 pitchers and her morning sugars appear to have been elevated. There is concerned that this may have not been sugar-free. She was a little bit worried about her liver enzymes as well however we discussed that these appear to be downtrending and may have been secondary to her IV Zosyn. Otherwise has no concerns today. Review of Systems General: No Chills, No Fatigue HEENT: No Head Aches Pulmonary: No Dyspnea, No Cough Cardiovascular: No: Chest Pain, Palpitations, Edema Gastrointestinal: Abdominal Pain (Epigastric); No: Nausea, Vomiting, Diarrhea, Constipation Genitourinary: No Dysuria, No Frequency Focused Exam Time of Focused Exam: 00:30 Objective Exam Last Set of Vital Signs Vital Signs Date Time Temp Pulse Resp B/P (MAP) Pulse Ox O2 Delivery O2 Flow Rate FiO2 02/13/23 07:51 36.1 69 16 127/72 (90) 95 Room Air Capillary Refill : Less Than 3 Seconds I&O Intake and Output 02/13/23 00:00 Intake Total 3190 ml Output Total 5700 ml Balance -2510 ml Intake Oral 2740 ml IV Total 450 ml Output Urine Total 5700 ml General: Alert, Oriented X3 HEENT: EOMI Neck: Supple Lungs: Clear to Auscultation Heart: Regular Rate, No Murmurs Abdomen: Normal Bowel Sounds, Soft, Other (Mild tenderness to palpation on bilateral suprapubic area) Extremities: No Edema Skin: No Rashes Neuro: Normal Speech Psych/Mental Status: Mental Status NL Results/Procedures Lab Laboratory Tests 02/12/23 11:19: Glucometer 313H 02/12/23 12:25: Sodium Level 134L, Potassium Level 3.7, Chloride Level 100, Carbon Dioxide Level 26, Anion Gap 8, Blood Urea Nitrogen 4L, Creatinine 0.78, Estimat Glomerular Filtration Rate 84, BUN/Creatinine Ratio 5, Glucose Level 351H, Calcium Level 7.9L, Corrected Calcium 8.5, Total Bilirubin 0.6, Aspartate Amino Transf (AST/SGOT) 1322#H, Alanine Aminotransferase (ALT/SGPT) 1057#H, Alkaline Phosphatase 246H, Total Protein 5.8L, Albumin 3.2 02/12/23 15:58: Glucometer 331H 02/12/23 20:15: Glucometer 324H 02/13/23 00:51: Glucometer 288H 02/13/23 05:10: White Blood Count 4.2L, Red Blood Count 4.21, Hemoglobin 11.9#, Hematocrit 36, Mean Corpuscular Volume 85, Mean Corpuscular Hemoglobin 28, Mean Corpuscular Hemoglobin Concent 33, Red Cell Distribution Width 14.0, Platelet Count 167, Mean Platelet Volume 11.8, Immature Granulocyte % (Auto) 0, Neutrophils (%) (Auto) 57, Lymphocytes (%) (Auto) 32, Monocytes (%) (Auto) 6, Eosinophils (%) (Auto) 4, Basophils (%) (Auto) 1, Neutrophils # (Auto) 2.4, Lymphocytes # (Auto) 1.3, Monocytes # (Auto) 0.3, Eosinophils # (Auto) 0.2, Basophils # (Auto) 0.1, Immature Granulocyte # (Auto) 0.0, Sodium Level 129L, Potassium Level 4.8, Chloride Level 95L, Carbon Dioxide Level 23, Anion Gap 11, Blood Urea Nitrogen 11, Creatinine 0.92, Estimat Glomerular Filtration Rate 69, BUN/Creatinine Ratio 12, Glucose Level 492*H, Calcium Level 8.6, Corrected Calcium 9.2, Phosphorus Level 2.7, Magnesium Level 1.8, Total Bilirubin 0.6, Aspartate Amino Transf (AST/SGOT) 457H, Alanine Aminotransferase (ALT/SGPT) 854#H, Alkaline Phosphatase 257H, Total Protein 6.3L, Albumin 3.3 02/13/23 05:11: Glucometer 538*H 02/13/23 06:40: Glucometer 436*H 02/13/23 10:48: Glucometer 503*H Microbiology 02/10/23 Blood Culture - Preliminary, Resulted 02/10/23 MRSA Screen - Final, Complete MRSA not isolated 02/09/23 Urine Culture - Final, Complete Pseudomonas aeruginosa Radiology Chest x-ray (02/10/2023): IMPRESSION: Unremarkable chest. CT chest/abdomen/pelvis (02/10/2023): MPRESSION: Fluid distention of stomach and esophagus. This may reflect gastroesophageal reflux. Clinical correlation would be of use. Otherwise, there is evidence of probable mild constipation. No other acute abnormality is seen. Findings are in agreement with preliminary report. Assessment/Plan Assessment/Plan (1) DKA (diabetic ketoacidosis) Status: Acute Assessment & Plan: Labs consistent with DKA. Likely secondary to malfunctioning insulin pump. May also be due to sepsis secondary to UTI. Sugars have been very difficult to control however it is unclear if this is due to patient's intake of food or not. Plan: Switching patient's detemir to 20 units twice daily and increasing aspart to 11 units 3 times daily Switch to sliding scale insulin B Diabetic diet (2) UTI (urinary tract infection) Status: Acute Assessment & Plan: UA consistent with UTI. Sepsis has resolved. Plan: Continue to monitor daily CBC Continue IV cefepime, today is day 4 of antibiotic Urine culture grew melvin susceptible Pseudomonas (3) Elevated LFTs Status: Acute Assessment & Plan: Patient noted to have elevated liver enzymes that have slowly been uptrending. Yesterday liver enzymes skyrocketed to AST of 2017 and ALT 1125. Alk phos is 214. Liver ultrasound yesterday was negative. Unknown cause for elevated liver enzymes at this time as patient is denying any alcohol or Tylenol use. Liver enzymes are downtrending this morning. Hepatitis panel, acetaminophen level and PT/INR were all normal. Given that we have an unclear cause at this time, we presume it is likely secondary to IV Zosyn use earlier in the hospitalization. Plan: Continue to monitor with daily CMP (4) Elevated troponin Status: Acute Assessment & Plan: Patient noted to have elevated troponin. Cardiology planning for cardiac cath tomorrow. Pushed back due to elevated liver enzymes. Plan: Cardiology consulted, appreciate recommendations (5) GERD (gastroesophageal reflux disease) Status: Chronic Assessment & Plan: We will restart home medications once med rec has been completed (6) Hypertension Status: Chronic Assessment & Plan: Patient noted to be on blood pressure medications at home. Will hold for now as blood pressures are within normal currently. (7) Hypothyroidism Status: Chronic Assessment & Plan: Continue home medication. OBDULIA MURPHY MD 02/13/23 1314: Supervisory-Addendum Brief Supervisory Addendum I personally performed the alvarado portions of the visit, discussed case with resident and concur with resident documentation of history, physical exam, assessment and treatment plan unless otherwise noted. BENTLEY HALL MD, RESIDENT Feb 13, 2023 11:22 OBDULIA MURPHY MD Feb 13, 2023 13:14
[2023-02-13] MEDS ORDERED: inSUlin ASPART 1 UNIT/0.01 ML (PER UNIT) SC ONE (14:45)
[2023-02-13 15:48] VITALS: BP 128/76
--- NOTE | 2023-02-13 16:29 | Progress Note - Cardiology ---
Cardiology SOAP Progress Note Subjective: No cp or palp or syncope or shortness of breath No n/v/d No focal weakness Gen weakness and malaise present Objective: I&O/Vital Signs 02/13/23 02/13/23 02/13/23 02/13/23 07:51 08:00 11:11 15:48 Temp 36.1 36.2 36.3 Pulse 69 71 74 Resp 16 16 18 B/P (MAP) 127/72 (90) 130/72 (91) 128/76 (93) Pulse Ox 95 98 99 O2 Delivery Room Air Room Air Room Air Room Air 02/12/23 23:59 Intake Total 2590 ml Output Total 4000 ml Balance -1410 ml Weight (Pounds): 175 Weight (Ounces): 0.9 Weight (Calculated Kilograms): 79.663508 Constitutional: AAO x 3, well-developed, well-nourished Respiratory: No accessory muscle use; chest expansion is symmetric, chest is bilaterally symmetric, other (good, bilat air entry) Cardiovascular: regular rate-rhythm, S1 and S2, systolic murmur (soft LULY at card base) Gastrointestional: No tender; soft; No guarding, No rebound, No audible bowel sounds Extremities: No clubbing, No cyanosis, No significant edema Neurologic/Psychiatric: oriented x 3, other (moves all limbs equally) Skin: normal color, warm/dry; No cyanosis, No cool, No diaphoresis; pallor Results/Procedures: Labs Laboratory Tests 02/12/23 20:15: Glucometer 324H 02/13/23 00:51: Glucometer 288H 02/13/23 05:10: White Blood Count 4.2L, Red Blood Count 4.21, Hemoglobin 11.9#, Hematocrit 36, Mean Corpuscular Volume 85, Mean Corpuscular Hemoglobin 28, Mean Corpuscular Hemoglobin Concent 33, Red Cell Distribution Width 14.0, Platelet Count 167, Mean Platelet Volume 11.8, Immature Granulocyte % (Auto) 0, Neutrophils (%) (Auto) 57, Lymphocytes (%) (Auto) 32, Monocytes (%) (Auto) 6, Eosinophils (%) (Auto) 4, Basophils (%) (Auto) 1, Neutrophils # (Auto) 2.4, Lymphocytes # (Auto) 1.3, Monocytes # (Auto) 0.3, Eosinophils # (Auto) 0.2, Basophils # (Auto) 0.1, Immature Granulocyte # (Auto) 0.0, Sodium Level 129L, Potassium Level 4.8, Chloride Level 95L, Carbon Dioxide Level 23, Anion Gap 11, Blood Urea Nitrogen 11, Creatinine 0.92, Estimat Glomerular Filtration Rate 69, BUN/Creatinine Ratio 12, Glucose Level 492*H, Calcium Level 8.6, Corrected Calcium 9.2, Phosphorus Level 2.7, Magnesium Level 1.8, Total Bilirubin 0.6, Aspartate Amino Transf (AST/SGOT) 457H, Alanine Aminotransferase (ALT/SGPT) 854#H, Alkaline Phosphatase 257H, Total Protein 6.3L, Albumin 3.3 02/13/23 05:11: Glucometer 538*H 02/13/23 06:40: Glucometer 436*H 02/13/23 10:48: Glucometer 503*H 02/13/23 13:55: Glucometer 282H 02/13/23 15:52: Glucometer 306H Microbiology 02/10/23 Blood Culture - Preliminary, Resulted 02/10/23 MRSA Screen - Final, Complete MRSA not isolated 02/09/23 Urine Culture - Final, Complete Pseudomonas aeruginosa Laboratory Tests 02/12/23 05:20 02/12/23 12:25 02/13/23 05:10 A/P: Assessment: Troponin elevation suggestive of NSTEMI (suspect type 1 [place]) - Echo on 02-11-23: mild conc LVH, hyperdynamic LV without wall motion abnormality, LVEF 75-80%, PASP approx 25 mmHg DKA Sepsis due to UTI Marked elevation of liver enzymes of undetermined etiology IV dye allergy Uncontrolled hyperglycemia and pseudohyponatremia on lab work of 02/13/23 Plan: * Liver enzymes are improving, but there is uncontrolled hyperglycemia and pseudohyponatremia on lab work of 02/13/23 * I discussed her issues with Dr Grigsby who is managing her blood sugars * Monitor labs BARBARA PINEDA MD [facility] CCDS Feb 13, 2023 16:29
[2023-02-13 19:22] VITALS: BP 135/57
[2023-02-13] MEDS: MELATONIN 3 MG TABLET PO PRN (22:51)
[2023-02-13 23:47] VITALS: BP 127/52
[2023-02-14 03:53] VITALS: BP 129/59
[2023-02-14] MEDS: CEFEPIME 1,000 MG/NS 50 ML IVPB IV SCH ×8 (03:56→20:36)
[2023-02-14] MEDS: LEVOTHYROXINE 150 MCG TABLET PO SCH (04:24)
[2023-02-14] MEDS: ONDANSETRON INJECTION 4 MG/2 ML (SDV) IV PRN ×2 (05:47→15:43)
[2023-02-14 05:54] LABS: BASOPHILS % (AUTO) 1 % (0-10); EOSINOPHILS # (AUTO) 0.3 10^3/uL (0.0-0.3); EOSINOPHILS % (AUTO) 5 % (0-10); HEMATOCRIT 34 % (35-52); HEMOGLOBIN 11.1 g/dL (11.5-16.0); LYMPHOCYTES # (AUTO) 1.9 10^3/uL (1.0-4.0); LYMPHOCYTES % (AUTO) 28 % (12-44); MEAN CORPUSCULAR HEMOGLOBIN 28 pg (25-34); MEAN CORPUSCULAR HGB CONC 33 g/dL (32-36); MEAN CORPUSCULAR VOLUME 85 fL (80-99); MEAN PLATELET VOLUME 11.9 fL (9.0-12.2); MONOCYTES # (AUTO) 0.5 10^3/uL (0.0-1.0); MONOCYTES % (AUTO) 7 % (0-12); NEUTROPHILS # (AUTO) 4.2 10^3/uL (1.8-7.8); NEUTROPHILS % (AUTO) 60 % (42-75); PLATELET COUNT 221 10^3/uL (130-400); WHITE BLOOD COUNT 6.9 10^3/uL (4.3-11.0)
[2023-02-14 06:03] LABS: POTASSIUM 4.8 MMOL/L (3.6-5.0)
[2023-02-14 06:05] LABS: CALCIUM 8.6 MG/DL (8.5-10.1)
[2023-02-14 06:06] LABS: TOTAL PROTEIN 5.9 GM/DL (6.4-8.2)
[2023-02-14 06:08] LABS: BILIRUBIN,TOTAL 0.3 MG/DL (0.1-1.0)
[2023-02-14 06:09] LABS: PHOSPHORUS 4.4 MG/DL (2.3-4.7)
[2023-02-14 06:10] LABS: CREATININE SERUM 0.86 MG/DL (0.60-1.30)
[2023-02-14 06:12] LABS: MAGNESIUM 1.7 MG/DL (1.6-2.4)
[2023-02-14] MEDS: inSUlin ASPART 1 UNIT/0.01 ML (PER UNIT) SC SCH ×7 (06:29→20:36)
[2023-02-14] MEDS: POTASSIUM CHLORIDE 20 MEQ TABLET PO SCH (06:30)
[2023-02-14] MEDS: POTASSIUM CL 10MEQ/50ML IVPB 50 ML IV SCH (06:30)
[2023-02-14] MEDS: MAGNESIUM 1 GM/100 ML IVPB 100 ML IV SCH ×3 (06:31→07:55)
[2023-02-14 07:55] VITALS: BP 149/78
[2023-02-14] MEDS ORDERED: inSUlin DETERMIR 1 UNIT/0.01 ML (CHARGE PER UNIT) SQ SCH (09:00)
--- NOTE | 2023-02-14 09:03 | Progress Note - Cardiology ---
Cardiology SOAP Progress Note Subjective: No cp or palp or syncope or shortness of breath Some gen malaise No focal weakness No n/v States tired of being in the hospital. Wants to go home Objective: I&O/Vital Signs 02/13/23 02/14/23 02/14/23 23:47 03:53 07:55 Temp 36.7 36.2 36.8 Pulse 72 72 80 Resp 18 16 18 B/P (MAP) 127/52 (77) 129/59 (82) 149/78 (101) Pulse Ox 96 96 97 O2 Delivery Room Air Room Air Room Air 02/14/23 00:00 Intake Total 2050 ml Output Total 2400 ml Balance -350 ml Weight (Pounds): 175 Weight (Ounces): 0.9 Weight (Calculated Kilograms): 79.153974 Constitutional: AAO x 3, well-developed, well-nourished Respiratory: No accessory muscle use; chest expansion is symmetric, chest is bilaterally symmetric, other (good, bilat air entry) Cardiovascular: regular rate-rhythm, S1 and S2, systolic murmur (soft LULY at card base) Gastrointestional: No tender; soft; No guarding, No rebound, No audible bowel sounds Extremities: No clubbing, No cyanosis, No significant edema Neurologic/Psychiatric: oriented x 3, other (moves all limbs equally) Skin: normal color, warm/dry; No cyanosis, No cool, No diaphoresis; pallor Results/Procedures: Labs Laboratory Tests 02/13/23 10:48: Glucometer 503*H 02/13/23 13:55: Glucometer 282H 02/13/23 15:52: Glucometer 306H 02/13/23 21:10: Glucometer 202H 02/14/23 05:35: White Blood Count 6.9, Red Blood Count 3.95, Hemoglobin 11.1L, Hematocrit 34L, Mean Corpuscular Volume 85, Mean Corpuscular Hemoglobin 28, Mean Corpuscular Hemoglobin Concent 33, Red Cell Distribution Width 14.4, Platelet Count 221, Mean Platelet Volume 11.9, Immature Granulocyte % (Auto) 0, Neutrophils (%) (Auto) 60, Lymphocytes (%) (Auto) 28, Monocytes (%) (Auto) 7, Eosinophils (%) (Auto) 5, Basophils (%) (Auto) 1, Neutrophils # (Auto) 4.2, Lymphocytes # (Auto) 1.9, Monocytes # (Auto) 0.5, Eosinophils # (Auto) 0.3, Basophils # (Auto) 0.0, Immature Granulocyte # (Auto) 0.0, Sodium Level 130L, Potassium Level 4.8, Chloride Level 98, Carbon Dioxide Level 22, Anion Gap 10, Blood Urea Nitrogen 1 7, Creatinine 0.86, Estimat Glomerular Filtration Rate 75, BUN/Creatinine Ratio 20, Glucose Level 436*H, Calcium Level 8.6, Corrected Calcium 9.4, Phosphorus Level 4.4, Magnesium Level 1.7, Total Bilirubin 0.3, Aspartate Amino Transf (AST/SGOT) 95H, Alanine Aminotransferase (ALT/SGPT) 492H, Alkaline Phosphatase 229H, Total Protein 5.9L, Albumin 3.0L 02/14/23 05:51: Glucometer 384H Microbiology 02/10/23 Blood Culture - Preliminary, Resulted 02/10/23 MRSA Screen - Final, Complete MRSA not isolated 02/09/23 Urine Culture - Final, Complete Pseudomonas aeruginosa A/P: Assessment: Troponin elevation suggestive of NSTEMI (possibly type 1 [place]) - clinically stable, no angina or heart failure - Echo on 02-11-23: mild conc LVH, hyperdynamic LV without wall motion abnormality, LVEF 75-80%, PASP approx 25 mmHg DKA - continuing markedly elevated blood sugars Sepsis due to UTI - improved Marked elevation of liver enzymes of undetermined etiology, improving - not suitable for statin because of marked liver enz elevation IV dye allergy Uncontrolled hyperglycemia and pseudohyponatremia on lab work of 02/13/23 and 02/14/23 Plan: * Liver enzymes are improving, but still has uncontrolled hyperglycemia and pseudohyponatremia on lab work of 02/13/23 and 02/14/23. Therefore, not suitab le for high-dose steroids that would be needed for cath (given her dye allergy). She is symptomatically stable (no angina, no CHF). It appears reasonable to continue conservative therapy and f/u as outpatient and consider coronary w/u after hyperglycemia and DKA issues have been fully treated. * We recommend continuation of ASA and Plavix and beta-cliff * Does not appear suitable for statin because of marked liver enzyme elevation * I discussed her CV issues with Dr Grigsby, her attending * Dr Staton will be covering Card svce beginning tomorrow BARBARA PINEDA MD FACP FACC CCDS Feb 14, 2023 09:03
[2023-02-14] MEDS: ASPIRIN 81 MG CHEWABLE TABLET PO SCH (09:17)
[2023-02-14] MEDS: PANTOPRAZOLE INJECTION 40 MG VIAL IV SCH (09:17)
[2023-02-14] MEDS: CLOPIDOGREL 75 MG TABLET PO SCH (09:17)
--- NOTE | 2023-02-14 09:40 | Progress Note ---
BENTLEY HALL MD, RESIDENT 02/14/23 0940: Subjective Subjective/Events-last exam Patient is doing well this morning is eager to get out of the hospital. She otherwise has no concerns this morning. Review of Systems General: No Fatigue HEENT: No Head Aches Pulmonary: No Dyspnea, No Cough Cardiovascular: No: Chest Pain, Palpitations, Edema Gastrointestinal: No: Nausea, Vomiting, Diarrhea, Constipation Genitourinary: No Dysuria Focused Exam Time of Focused Exam: 00:30 Objective Exam Last Set of Vital Signs Vital Signs Date Time Temp Pulse Resp B/P (MAP) Pulse Ox O2 Delivery O2 Flow Rate FiO2 02/14/23 07:55 36.8 80 18 149/78 (101) 97 Room Air Capillary Refill : Less Than 3 Seconds I&O Intake and Output 02/14/23 00:00 Intake Total 3250 ml Output Total 4400 ml Balance -1150 ml Intake Oral 3250 ml Output Urine Total 4400 ml # Bowel Movements 3 General: Alert, Oriented X3 HEENT: Atraumatic Neck: Supple Lungs: Clear to Auscultation, Normal Air Movement Heart: Regular Rate, No Murmurs Abdomen: Normal Bowel Sounds, Soft, Other (Tender to palpation in the epigastric area but diffusely) Extremities: No Edema Neuro: Normal Speech Psych/Mental Status: Mental Status NL Results/Procedures Lab Laboratory Tests 02/13/23 10:48: Glucometer 503*H 02/13/23 13:55: Glucometer 282H 02/13/23 15:52: Glucometer 306H 02/13/23 21:10: Glucometer 202H 02/14/23 05:35: White Blood Count 6.9, Red Blood Count 3.95, Hemoglobin 11.1L, Hematocrit 34L, Mean Corpuscular Volume 85, Mean Corpuscular Hemoglobin 28, Mean Corpuscular Hemoglobin Concent 33, Red Cell Distribution Width 14.4, Platelet Count 221, Mean Platelet Volume 11.9, Immature Granulocyte % (Auto) 0, Neutrophils (%) (A uto) 60, Lymphocytes (%) (Auto) 28, Monocytes (%) (Auto) 7, Eosinophils (%) (Auto) 5, Basophils (%) (Auto) 1, Neutrophils # (Auto) 4.2, Lymphocytes # (Auto) 1.9, Monocytes # (Auto) 0.5, Eosinophils # (Auto) 0.3, Basophils # (Auto) 0.0, Immature Granulocyte # (Auto) 0.0, Sodium Level 130L, Potassium Level 4.8, Chloride Level 98, Carbon Dioxide Level 22, Anion Gap 10, Blood Urea Nitrogen 17, Creatinine 0.86, Estimat Glomerular Filtration Rate 75, BUN/Creatinine Ratio 20, Glucose Level 436*H, Calcium Level 8.6, Corrected Calcium 9.4, Phosphorus Level 4.4, Magnesium Level 1.7, Total Bilirubin 0.3, Aspartate Amino Transf (AST/SGOT) 95H, Alanine Aminotransferase (ALT/SGPT) 492H, Alkaline Phosphatase 229H, Total Protein 5.9L, Albumin 3.0L 02/14/23 05:51: Glucometer 384H Microbiology 02/10/23 Blood Culture - Preliminary, Resulted 02/10/23 MRSA Screen - Final, Complete MRSA not isolated 02/09/23 Urine Culture - Final, Complete Pseudomonas aeruginosa Radiology Chest x-ray (02/10/2023): IMPRESSION: Unremarkable chest. CT chest/abdomen/pelvis (02/10/2023): MPRESSION: Fluid distention of stomach and esophagus. This may reflect gastroesophageal reflux. Clinical correlation would be of use. Otherwise, there is evidence of probable mild constipation. No other acute abnormality is seen. Findings are in agreement with preliminary report. Assessment/Plan Assessment/Plan (1) DKA (diabetic ketoacidosis) Status: Acute Assessment & Plan: Labs consistent with DKA. K has resolved at this time. Likely secondary to malfunctioning insulin pump. May also be due to sepsis secondary to UTI. Sugars have been very difficult to control however it is unclear if this is due to patient's intake of food or not. Patient has Levemir and Lantus at home. Anticipate discharge tomorrow if sugars are better controlled. Plan: Increasing detemir to 28 units twice daily and aspart to 16 units 3 times daily Continue sliding scale insulin B Diabetic diet (2) UTI (urinary tract infection) Status: Resolved Assessment & Plan: UA consistent with UTI. Sepsis has resolved. Plan: Continue to monitor daily CBC Continue IV cefepime, today is day 5 of antibiotic. Will discontinue tomorrow prior to discharge Urine culture grew melvin susceptible Pseudomonas (3) Elevated LFTs Status: Acute Assessment & Plan: Patient noted to have elevated liver enzymes that have slow ly been uptrending. Yesterday liver enzymes skyrocketed to AST of 2017 and ALT 1125. Alk phos is 214. Liver ultrasound yesterday was negative. Unknown cause for elevated liver enzymes at this time as patient is denying any alcohol or Tylenol use. Hepatitis panel, acetaminophen level and PT/INR were all normal. Given that we have an unclear cause at this time, we presume it is likely secondary to IV Zosyn use earlier in the hospitalization. Liver enzymes are downtrending this morning. Plan: Continue to monitor with daily CMP (4) Elevated troponin Status: Acute Assessment & Plan: Patient noted to have elevated troponin. Etiology is not planning on doing a cardiac cath during hospitalization given that patient has not had any chest pain recurrence and her sugars are not well controlled at this time. Will require steroid during cardiac cath which will make her sugars worse. Plan: Consider follow-up in the outpatient if recurrence of chest pain (5) GERD (gastroesophageal reflux disease) Status: Chronic Assessment & Plan: Continue home medications (6) Hypertension Status: Chronic Assessment & Plan: Patient noted to be on blood pressure medications at home. Will hold for now as blood pressures are within normal currently. (7) Hypothyroidism Status: Chronic Assessment & Plan: Continue home medication. OBDULIA MURPHY MD 02/14/23 7424: Supervisory-Addendum Brief Supervisory Addendum I personally performed the alvarado portions of the visit, discussed case with resident and concur with resident documentation of history, physical exam, assessment and treatment plan unless otherwise noted. BENTLEY HALL MD, RESIDENT Feb 14, 2023 09:40 OBDULIA MURPHY MD Feb 14, 2023 16:56
[2023-02-14 11:42] VITALS: BP 133/78
--- NOTE | 2023-02-14 13:45 | Physical Therapy Evaluation ---
PT Evaluation-General Medical Diagnosis Admission Date Feb 10, 2023 at 00:33 Medical Diagnosis: DKA/UTI/sepsis Onset Date: Feb 10, 2023 Therapy Diagnosis Therapy Diagnosis: debility Height/Weight Height (Feet): 5 Height (Inches): 2.00 Weight (Pounds): 175 Weight (Ounces): 0.9 Precautions Precautions/Isolations: Fall Prevention, Standard Precautions Referral Physician: Seb Reason for Referral: Evaluation/Treatment Medical History Pertinent Medical History: DM, HTN, Hypothroidism Current History ER secondary to elevated blood sugar Reviewed History: Yes Social History Home: Single Level Current Living Status: Alone Entry Into Home: Stairs Without Railing PT Steps Into Home: 3 Prior Prior Level of Function SCALE: Activities may be completed with or without assistive devices. 1-Iavleenbkn-ojchtlp completes the activity by him/herself with no assistance from a helper. 5-Set-up or Clean-up Assistance-helper sets up or cleans up; patient completes activity. [place] assists only prior to or following the activity. 4-Supervision or Touching Assistance-helper provides verbal cues and/or touching/steadying and/or contact guard assistance as patient completes activity. Assistance may be provided throughout the activity or intermittently. 3-Partial/Moderate Assistance-helper does LESS THAN HALF the effort. [place] lifts, holds or supports trunk or limbs, but provides less than half the effort. 2-Substantial/Maximal Assistance-helper does MORE THAN HALF the effort. [place] lifts or holds trunk or limbs and provides more than half the effort. 5-Twbdkecuq-topurn does ALL the effort. Patient does none of the effort to co mplete the activity. Or, the assistance of 2 or more helpers is required for the patient to complete the activity. If activity was not attempted, code reason: 7-Patient Refused. 9-Not Applicable-not attempted and the patient did not perform the activity before the current illness, exacerbation or injury. 10-Not Attempted due to Environmental Limitations-(lack of equipment, weather restraints, etc.). 88-Not Attempted due to Medical Conditions or Safety Concerns. Bed Mobility: 6 Transfers (B,C,W/C): 6 Gait: 6 Stairs: 6 Indoor Mobility (Ambulation): Independent Stairs: Independent Prior Devices Use: None PT Evaluation-Current Subjective Patient agrees to PT. ROM/Strength ROM Lower Extremities bilateral LE WFL Strength Lower Extremities 4/5 grossly bilateral LE all planes Sensory Vision: Functional Hearing: Functional Transfers Lying to Sitting/Side of Bed(Q: 6 Sit to Stand (QC): 6 Chair/Wog-bo-Mjuyz Xfer(QC): 6 Gait Mode of Locomotion: Walk Anticipated Mode of Locomotion: Walk Walk 10 feet (QC): 6 Walk 50 ft with 2 Turns(QC): 6 Walk 150 ft (QC): 6 Distance: 400' Gait Assistive Device: None Comments/Gait Description safe and functional with no deviation Balance Sitting Static: Normal Sitting Dynamic: Normal Standing Static: Normal Standing Dynamic: Normal Assessment/Needs Patient is currently at independent LOF with all gross motor skills safely and does not require skilled PT intervention at this time. Rehab Potential: Fair PT Plan Treatment/Plan Treatment Plan: Discontinue PT Treatment Duration: Feb 14, 2023 Frequency: 1 time per week Estimated Hrs Per Day: .25 hour per day Patient and/or Family Agrees t: Yes Time Time In: 1320 Time Out: 1330 DATE: Feb 14, 2023 Total Billed Treatment Time: 10 Total Billed Treatment 1 visit EVModC 10 min BRENDON KAPOOR PT Feb 14, 2023 13:45
[2023-02-14 16:23] VITALS: BP 144/70
[2023-02-14] MEDS ORDERED: PANTOPRAZOLE INJECTION 40 MG VIAL IV PRN (16:45)
[2023-02-14] MEDS ORDERED: CALCIUM CARBONATE 500 MG CHEW TABLET PO PRN (16:45)
[2023-02-14] MEDS: SUCRALFATE 1 GM TABLET PO SCH (16:59)
--- NOTE | 2023-02-14 18:21 | Physician Query-Final Dx ---
NAI LOPES 02/14/23 1821: Final Diagnosis Give Final Diagnosis Please give Final Diagnosis The medical record reflects the following clinical scenario: The patient, in the setting of History/Risk factors, Admitted with Sepsis and UTI, DM, Clinical Findings Troponin I levels, troponin I 0.028 then 0.028 then 0.036 then 0.685 and 0.331, (all from the day of admission) no chest pain, EKG: "Moderate ST Depression" Treatment Cardiology consult, Echo, planning for heart cath that was then put on hold, Clopidogrel, Aspirin, Metoprolol, Question: Do you agree with the impression of NSTEMI (Possibly Type 1 MN) per Dr. Dav Antonio? Yes; will document NSTEMI (Possibly Type 1 MN) in the Progress Notes, present on admission No; will continue current documentation in the Progress Notes Other; will document explanation of clinical findings Clinically undetermined; no explanation for clinical findings Please clarify and document your clinical opinion in the Progress Notes and Discharge Summary including the definitive and/or presumptive diagnosis, (suspected or probable), related to the above clinical findings. Please include clinical findings supporting your diagnosis. In responding to this query, please exercise your independent professional judgment. The purpose of this communication is to more accurately reflect the complexity of your patients condition. The fact that a question is asked does not imply that any particular answer is desired or expected. Thank you for timely response to this clarification. Nai Lopes, MSN, RN Clinical Roll Builder [phone] [email or web address] OBDULIA MURPHY MD 02/18/23 0428: Final Diagnosis Give Final Diagnosis NSTEMI NAI LOPES Feb 14, 2023 18:21 OBDULIA MURPHY MD Feb 18, 2023 04:28
[2023-02-14 20:16] VITALS: BP 131/67
[2023-02-14] MEDS: MELATONIN 3 MG TABLET PO PRN (20:35)
[2023-02-14] MEDS: PANTOPRAZOLE 40 MG TABLET PO SCH (20:35)
[2023-02-14] MEDS: inSUlin DETERMIR 1 UNIT/0.01 ML (CHARGE PER UNIT) SQ SCH (20:36)
[2023-02-14 23:48] VITALS: BP 120/63
[2023-02-15 03:23] VITALS: BP 117/72
[2023-02-15] MEDS: CEFEPIME 1,000 MG/NS 50 ML IVPB IV SCH ×4 (03:23→08:50)
[2023-02-15 04:35] LABS: BASOPHILS % (AUTO) 1 % (0-10); EOSINOPHILS # (AUTO) 0.5 10^3/uL (0.0-0.3); EOSINOPHILS % (AUTO) 7 % (0-10); HEMATOCRIT 34 % (35-52); HEMOGLOBIN 11.3 g/dL (11.5-16.0); LYMPHOCYTES # (AUTO) 2.3 10^3/uL (1.0-4.0); LYMPHOCYTES % (AUTO) 29 % (12-44); MEAN CORPUSCULAR HEMOGLOBIN 28 pg (25-34); MEAN CORPUSCULAR HGB CONC 33 g/dL (32-36); MEAN CORPUSCULAR VOLUME 85 fL (80-99); MEAN PLATELET VOLUME 11.8 fL (9.0-12.2); MONOCYTES # (AUTO) 0.6 10^3/uL (0.0-1.0); MONOCYTES % (AUTO) 8 % (0-12); NEUTROPHILS # (AUTO) 4.4 10^3/uL (1.8-7.8); NEUTROPHILS % (AUTO) 56 % (42-75); PLATELET COUNT 286 10^3/uL (130-400); WHITE BLOOD COUNT 7.9 10^3/uL (4.3-11.0)
[2023-02-15 04:49] LABS: ALBUMIN 3.2 GM/DL (3.2-4.5)
[2023-02-15 04:52] LABS: TOTAL PROTEIN 6.2 GM/DL (6.4-8.2)
[2023-02-15 04:53] LABS: BILIRUBIN,TOTAL 0.3 MG/DL (0.1-1.0)
[2023-02-15 04:55] LABS: PHOSPHORUS 5.6 MG/DL (2.3-4.7)
[2023-02-15 04:56] LABS: CREATININE SERUM 0.76 MG/DL (0.60-1.30)
[2023-02-15 04:58] LABS: MAGNESIUM 1.8 MG/DL (1.6-2.4)
[2023-02-15] MEDS: MAGNESIUM 1 GM/100 ML IVPB 100 ML IV SCH ×3 (06:06→07:44)
[2023-02-15] MEDS: POTASSIUM CHLORIDE 20 MEQ TABLET PO SCH (06:06)
[2023-02-15] MEDS: POTASSIUM CL 10MEQ/50ML IVPB 50 ML IV SCH (06:06)
[2023-02-15] MEDS: inSUlin ASPART 1 UNIT/0.01 ML (PER UNIT) SC SCH ×4 (06:07→12:11)
[2023-02-15] MEDS: SUCRALFATE 1 GM TABLET PO SCH ×2 (06:36→12:10)
[2023-02-15] MEDS: LEVOTHYROXINE 150 MCG TABLET PO SCH (06:36)
[2023-02-15 07:20] VITALS: BP 110/70
[2023-02-15] MEDS: ASPIRIN 81 MG CHEWABLE TABLET PO SCH (08:20)
[2023-02-15] MEDS: inSUlin DETERMIR 1 UNIT/0.01 ML (CHARGE PER UNIT) SQ SCH (08:21)
[2023-02-15] MEDS: CLOPIDOGREL 75 MG TABLET PO SCH (08:21)
[2023-02-15] MEDS: PANTOPRAZOLE 40 MG TABLET PO SCH (08:21)
--- NOTE | 2023-02-15 08:26 | Discharge Summary ---
BENTLEY HALL MD, RESIDENT 02/15/23 0821: Discharge Summary Hospital Course Problems/Diagnosis: (1) DKA (diabetic ketoacidosis) Status: Resolved Resolution Date/Time: 02/15/23 @ 08:15 Assessment & Plan: Labs consistent with DKA. DKA has resolved at this time. Likely secondary to malfunctioning insulin pump. May also be due to sepsis secondary to UTI. Sugars have been very difficult to control however it is unclear if this is due to patient's intake of food or not. Patient has Levemir and Lispro at home. Plan: Continue detemir 28 units twice daily and aspart 16 units 3 times daily as sugars have been under better control on this regimen Continue sliding scale insulin B Diabetic diet Discharge today Qualifiers: Qualified Codes: E11.10 - Type 2 diabetes mellitus with ketoacidosis without coma (2) UTI (urinary tract infection) Status: Resolved Resolution Date/Time: 02/14/23 @ 11:31 Assessment & Plan: UA consistent with UTI. Sepsis has resolved. Plan: Continue to monitor daily CBC Continue IV cefepime, today is day 6 of antibiotic. Will not continue antibiotics on discharge. Urine culture grew melvin susceptible Pseudomonas (3) Elevated LFTs Status: Acute Assessment & Plan: Patient noted to have elevated liver enzymes that have slowly been uptrending. Yesterday liver enzymes skyrocketed to AST of 2017 and ALT 1125. Alk phos is 214. Liver ultrasound yesterday was negative. Unknown cause for elevated liver enzymes at this time as patient is denying any alcohol or Tylenol use. Hepatitis panel, acetaminophen level and PT/INR were all normal . Given that we have an unclear cause at this time, we presume it is likely secondary to IV Zosyn use earlier in the hospitalization. Her enzymes continue to downtrend today, AST 99, ALT 385 and alk phos 226. Plan: Continue to monitor with daily CMP Recommend rechecking CMP in 1 week outpatient (4) NSTEMI (non-ST elevated myocardial infarction) Status: Acute Assessment & Plan: Patient noted to have elevated troponin. Cardiology is not planning on doing a cardiac cath during hospitalization given that patient has not had any chest pain recurrence and her sugars are not well controlled at this time. Will require steroid during cardiac cath which will make her sugars worse. Plan: We will refer to cardiology in the outpatient for follow-up on chest pain - Andrey send home on aspirin, plavix and metoprolol (5) GERD (gastroesophageal reflux disease) Status: Chronic Assessment & Plan: Continue home medications. Of note patient is scheduled to have a scope completed in a couple weeks to work-up epigastric pain. Qualifiers: Qualified Codes: K21.9 - Gastro-esophageal reflux disease without esopha gitis (6) Hypertension Status: Chronic Assessment & Plan: Patient noted to be on blood pressure medications at home. Will hold for now as blood pressures are within normal currently. Qualifiers: Qualified Codes: I10 - Essential (primary) hypertension (7) Hypothyroidism Status: Chronic Assessment & Plan: Continue home medication. Qualifiers: Qualified Codes: E03.9 - Hypothyroidism, unspecified Hospital Course Date of Admission: Feb 10, 2023 at 00:33 Admission Diagnosis : Family Physician/Provider: Cameron Dickinson DO Date of Discharge: 02/15/23 Discharge Diagnosis: DKA, sepsis secondary to UTI Hospital Course: Is a 67-year-old female with a past medical history of diabetes, hypothyroidism and hypertension who presented with poorly controlled sugars. She had her insulin pump changed on February 06 in the clinic however she began noticing elevated blood sugars with no improvement. She did inject 10 units of subcutaneous insulin prior to presenting to the ED with no improvement in her sugars. She was also having symptoms of nausea, vomiting and decreased appetite and thus presented to the ED for further evaluation. In the ED patient was noted to be in DKA with a metabolic acidosis, elevated anion gap and elevated beta hydroxybutyrate. She was also noted to have a significant leukocytosis to 20.2 with tachycardia consistent with sepsis. UA was notable for UTI thus likely causing the sepsis. Patient was admitted to the ICU due to insulin drip needs and was started on IV Zosyn for management of her UTI. Patient was eventually weaned off of the insulin drip and switch to subcutaneous insulin. She was having some chest tightness on 02/11 and was noted to have elevated troponins with no EKG changes. Cardiology was consulted for further management. The plan was initially to do heart cath however patient had multiple abnormalities on her lab work that were contraindicated. We had switched her antibiotic to IV cefepime to cover Pseudomonas and began noticing a sudden jump in her LFTs. Liver work-up was otherwise negative and liver ultrasound was also negative LFTs did eventually improve and downtrend, thus was thought to be secondary to patient's initial doses of IV Zosyn. Subcutaneous insulin regimen was slowly uptitrated to control patient's sugars however it did take some time to do so. Final regimen was detemir 28 units twice daily and aspart 16 units 3 times daily which patient will continue at home with her home Levemir and Lispro. However due to the poorly controlled sugars and elevated LFTs, cardiology did not do a heart cath. In addition, prior to discharge, patient's LFTs did not completely resolve however she is clinically stable. We recommend repeating CMP in 1 week after discharge. Will provide a referral to cardiology in the outpatient to follow-up on heart function. Recommend close follow-up in the clinic for insulin pump evaluation as patient will continue subcutaneous ins ulin until her pump is functioning. Otherwise stable prior to discharge. Labs and Pending Lab Test: Laboratory Tests 02/14/23 11:41: Glucometer 328H 02/14/23 15:51: Glucometer 229H 02/14/23 20:18: Glucometer 129H 02/15/23 00:59: Glucometer 101 02/15/23 04:14: White Blood Count 7.9, Red Blood Count 4.01, Hemoglobin 11.3L, Hematocrit 34L, Mean Corpuscular Volume 85, Mean Corpuscular Hemoglobin 28, Mean Corpuscular Hemoglobin Concent 33, Red Cell Distribution Width 14.9H, Platelet Count 286, Mean Platelet Volume 11.8, Immature Granulocyte % (Auto) 1, Neutrophils (%) (Auto) 56, Lymphocytes (%) (Auto) 29, Monocytes (%) (Auto) 8, Eosinophils (%) (Auto) 7, Basophils (%) (Auto) 1, Neutrophils # (Auto) 4.4, Lymphocytes # (Auto) 2.3, Monocytes # (Auto) 0.6, Eosinophils # (Auto) 0.5H, Basophils # (Auto) 0.0, Immature Granulocyte # (Auto) 0.0, Sodium Level 136, Potassium Level 4.0, Chloride Level 103, Carbon Dioxide Level 24, Anion Gap 9, Blood Urea Nitrogen 14, Creatinine 0.76, Estimat Glomerular Filtration Rate 87, BUN/Creatinine Ratio 18, Glucose Level 95, Calcium Level 9.0, Corrected Calcium 9.6, Phosphorus Level 5.6H, Magnesium Level 1.8, Total Bilirubin 0.3, Aspartate Amino Transf (AST/SGOT) 99H, Alanine Aminotransferase (ALT/SGPT) 385H, Alkaline Phosphatase 226H, Total Protein 6.2L, Albumin 3.2 02/15/23 05:40: Glucometer 81 02/15/23 07:22: Glucometer 216H Microbiology 02/10/23 Blood Culture - Preliminary, Resulted 02/10/23 MRSA Screen - Final, Complete MRSA not isolated 02/09/23 Urine Culture - Final, Complete Pseudomonas aeruginosa Home Meds Active Reported Insulin Aspart 100 Unit/Ml Vial Unit SQ UD PER PUMP Melatonin 5 Mg Tablet 5 Mg PO HS Bupropion Xl (Bupropion HCl) 300 Mg Tab.er.24h 300 Mg PO DAILY Levothyroxine Sodium 150 Mcg Tablet 150 Mcg PO DAILY Trazodone HCl 150 Mg Tablet 150 Mg PO HS Sucralfate 1 Gram Tablet 1 Gm PO TIDAC Losartan Potassium 25 Mg Tablet 25 Mg PO DAILY Atorvastatin Calcium 80 Mg Tablet 80 Mg PO DAILY Duloxetine HCl 30 Mg Capsule.dr 30 Mg PO HS Xalatan (Latanoprost) 2.5 Ml Drops 1 Drop OU HS Pantoprazole Sodium 40 Mg Tablet.dr 40 Mg PO BID Myrbetriq (Mirabegron) 50 Mg Tab.er.24h 50 Mg PO DAILY Timolol Maleate 0.5% (Timolol Maleate) 5 Ml Drops 1 Drop OU DAILY Assessment/Pt DC Instructions Please see electronic discharge instructions given to patient. Discharge Diet: ADA Diet Activity as Tolerated: Yes Consulations Consultations Cardiology Discharge Physical Examination Allergies: Coded Allergies: iodine (Verified Allergy, Unknown, VOMITING EXTREME, 12/25/21) shrimp (Verified Allergy, Unknown, EXTREME VOMITING, 12/25/21) cephalexin (Verified Adverse Reaction, Mild, DIARRHEA, 12/25/21) piperacillin (Verified Adverse Reaction, Unknown, transaminitis?, 02/15/23) tazobactam (Verified Adverse Reaction, Unknown, transaminitis?, 02/15/23) General Appearance: No Apparent Distress HEENT: Normal ENT Inspection Respiratory: Chest Non Tender, Lungs Clear, Normal Breath Sounds, No Accessory Muscle Use, No Respiratory Distress Cardiovascular: Regular Rate, Rhythm, No Edema, No Murmur Gastrointestinal: Normal Bowel Sounds, Non Tender, Soft Extremity: No Pedal Edema Skin: Normal Color, Warm/Dry Neurologic/Psychiatric: Alert, Oriented x3 Copy Copies To 1: CAMERON DICKINSON DO; SYED Herndon MD 02/15/23 1239: Discharge Summary Discharge Physical Examination Allergies: Coded Allergies: iodine (Verified Allergy, Unknown, VOMITING EXTREME, 12/25/21) shrimp (Verified Allergy, Unknown, EXTREME VOMITING, 12/25/21) cephalexin (Verified Adverse Reaction, Mild, DIARRHEA, 12/25/21) piperacillin (Verified Adverse Reaction, Unknown, transaminitis?, 02/15/23) tazobactam (Verified Adverse Reaction, Unknown, transaminitis?, 02/15/23) Progress Notes/Assess & Plan Date Seen 02/15/23 Time Seen by Provider: 09:45 Diagonsis/Assessment & Plan I personally have seen and evaluated the patient and performed the physical exam. I agree with the documented assessment and plan. Copy Copies To 1: CAMERON DICKINSON DO; BENTLEY Jefferson MD, RESIDENT Feb 15, 2023 08:21 SYED FORBES MD Feb 15, 2023 12:39
[2023-02-15] MEDS ORDERED: ASPI81TA64 PO ×2 (10:58)
[2023-02-15] MEDS ORDERED: MTP25TSR PO ×2 (10:58)
[2023-02-15] MEDS ORDERED: CLOP75TA28 PO ×2 (10:58)
[2023-02-15 11:19] VITALS: BP 113/73
--- NOTE | 2023-02-15 12:19 | Cardiology Progress Note ---
Cardiology SOAP Progress Note Subjective: No cardiac complaints. Objective: I&O/Vital Signs 02/15/23 02/15/23 02/15/23 02/15/23 03:23 07:20 08:23 11:19 Temp 36.0 35.8 36.2 Pulse 69 76 75 Resp 16 16 17 B/P (MAP) 117/72 (87) 110/70 (83) 113/73 (86) Pulse Ox 98 98 99 O2 Delivery Room Air Room Air Room Air Room Air 02/15/23 13:00 Temp 36.2 Pulse 75 Resp 17 B/P (MAP) 113/73 Pulse Ox 99 O2 Delivery Room Air 02/15/23 00:00 Intake Total 3235 ml Output Total 3300 ml Balance -65 ml Weight (Pounds): 175 Weight (Ounces): 0.9 Weight (Calculated Kilograms): [id number] Constitutional: AAO x 3, well-developed, well-nourished Respiratory: No accessory muscle use; chest expansion is symmetric, chest is bilaterally symmetric, other (good, bilat air entry) Cardiovascular: regular rate-rhythm, S1 and S2, systolic murmur (soft LULY at card base) Gastrointestional: No tender; soft; No guarding, No rebound, No audible bowel sounds Extremities: No clubbing, No cyanosis, No significant edema Neurologic/Psychiatric: oriented x 3, other (moves all limbs equally) Skin: normal color, warm/dry; No cyanosis, No cool, No diaphoresis; pallor Results/Procedures: Labs Laboratory Tests 02/14/23 15:51: Glucometer 229H 02/14/23 20:18: Glucometer 129H 02/15/23 00:59: Glucometer 101 02/15/23 04:14: White Blood Count 7.9, Red Blood Count 4.01, Hemoglobin 11.3L, Hematocrit 34L, Mean Corpuscular Volume 85, Mean Corpuscular Hemoglobin 28, Mean Corpuscular Hemoglobin Concent 33, Red Cell Distribution Width 14.9H, Platelet Count 286, Mean Platelet Volume 11.8, Immature Granulocyte % (Auto) 1, Neutrophils (%) (Auto) 56, Lymphocytes (%) (Auto) 29, Monocytes (%) (Auto) 8, Eosinophils (%) (Auto) 7, Basophils (%) (Auto) 1, Neutrophils # (Auto) 4.4, Lymphocytes # (Auto) 2.3, Monocytes # (Auto) 0.6, Eosinophils # (Auto) 0.5H, Basophils # (Auto) 0.0, Immature Granulocyte # (Auto) 0.0, Sodium Level 136, Potassium Level 4.0, Chloride Level 103, Carbon Dioxide Level 24, Anion Gap 9, Blood Urea Nitrogen 14, Creatinine 0.76, Estimat Glomerular Filtration Rate 87, BUN/Creatinine Ratio 18, Glucose Level 95, Calcium Level 9.0, Corrected Calcium 9.6, Phosphorus Level 5.6H, Magnesium Level 1.8, Total Bilirubin 0.3, Aspartate Amino Transf (AST/SGOT) 99H, Alanine Aminotransferase (ALT/SGPT) 385H, Alkaline Phosphatase 226H, Total Protein 6.2L, Albumin 3.2 02/15/23 05:40: Glucometer 81 02/15/23 07:22: Glucometer 216H 02/15/23 11:02: Glucometer 230H Microbiology 02/10/23 Blood Culture - Preliminary, Resulted 02/10/23 MRSA Screen - Final, Complete MRSA not isolated 02/09/23 Urine Culture - Final, Complete Pseudomonas aeruginosa A/P: Assessment/Dx: Troponin elevation suggestive of NSTEMI (possibly type 1 [place]) - clinically stable, no angina or heart failure - Echo on 02-11-23: mild conc LVH, hyperdynamic LV without wall motion abnormality, LVEF 75-80%, PASP approx 25 mmHg DKA - continuing markedly elevated blood sugars Sepsis due to UTI - improved Marked elevation of liver enzymes of undetermined etiology, improving - not suitable for statin because of marked liver enz elevation IV dye allergy Uncontrolled hyperglycemia and pseudohyponatremia on lab work of 02/13/23 and 02/14/23 Plan: * Liver enzymes are improving, but still has uncontrolled hyperglycemia and pseudohyponatremia on lab work of 02/13/23 and 02/14/23. Therefore, not suitable for high-dose steroids that would be needed for cath (given her dye allergy). She is symptomatically stable (no angina, no CHF). It appears reasonable to continue conservative therapy and f/u as outpatient and consider coronary w/u after hyperglycemia and DKA issues have been fully treated. * We recommend continuation of ASA and Plavix and beta-cliff * Does not appear suitable for statin because of marked liver enzyme elevation * I discussed her CV issues with Dr Grigsby, her attending * Okay to discharge and follow-up with Dr. Antonio as an outpatient. Focused Exam Time of Focused Exam: 00:30 Julio C LORD MD Feb 15, 2023 12:19
--- NOTE | 2023-02-15 12:42 | Discharge Summary ---
BENTLEY HALL MD, RESIDENT 02/15/23 1238: Discharge Summary Reconcile Patient Problems Problems Reviewed?: Yes Instructions for Patient Via [employer], Assessment/Instructions Continue Levemir 28u BID and Lispro 16u TID Follow up with PCP for insulin pump evaluation Recheck CMP in one week to monitor LFTs Follow up with cardiology in 4 weeks for evaluation for heart cath Physician to follow Patient: Dr. Tyler Miller Discharge Diet for Home: ADA Diet Hospital Course Date of Admission: Feb 10, 2023 at 00:33 Admission Diagnosis : Family Physician/Provider: Tyler Miller DO Date of Discharge: 02/15/23 Discharge Diagnosis: DKA, sepsis secondary to UTI Hospital Course: Is a 67-year-old female with a past medical history of diabetes, hypothyroidism and hypertension who presented with poorly controlled sugars. She had her insulin pump changed on February 06 in the clinic however she began noticing elevated blood sugars with no improvement. She did inject 10 units of subcutaneous insulin prior to presenting to the ED with no improvement in her sugars. She was also having symptoms of nausea, vomiting and decreased appetite and thus presented to the ED for further evaluation. In the ED patient was noted to be in DKA with a metabolic acidosis, elevated anion gap and elevated beta hydroxybutyrate. She was also noted to have a significant leukocytosis to 20.2 with tachycardia consistent with sepsis. UA was notable for UTI thus likely causing the sepsis. Patient was admitted to the ICU due to insulin drip needs and was started on IV Zosyn for management of her UTI. Patient was eventually weaned off of the insulin drip and switch to subcutaneous insulin. She was having some chest tightness on 02/11 and was noted to have elevated troponins with no EKG changes. Cardiology was consulted for further management. The plan was initially to do heart cath however patient had multiple abnormalities on her lab work that were contraindicated. We had switched her antibiotic to IV cefepime to cover Pseudomonas and began noticing a sudden jump in her LFTs. Liver work-up was otherwise negative and liver ultrasound was also negative LFTs did eventually improve and downtrend, thus was thought to be secondary to patient's initial doses of IV Zosyn. Subcutaneous insulin regimen was slowly uptitrated to control patient's sugars however it did take some time to do so. Final regimen was detemir 28 units twice daily and aspart 16 units 3 times daily which patient will continue at home with her home Levemir and Lispro. However due to the poorly controlled sugars and elevated LFTs, cardiology did not do a heart cath. In addition, prior to discharge, patient's LFTs did not completely resolve however she is clinically stable. We recommend repeating CMP in 1 week after discharge. Will provide a referral to cardiology in the outpatient to follow-up on heart function. Recommend close follow-up in the clinic for insulin pump evaluation as patient will continue subcutaneous insulin until her pump is functioning. Otherwise stable prior to discharge. Labs and Pending Lab Test: Laboratory Tests 02/14/23 15:51: Glucometer 229H 02/14/23 20:18: Glucometer 129H 02/15/23 00:59: Glucometer 101 02/15/23 04:14: White Blood Count 7.9, Red Blood Count 4.01, Hemoglobin 11.3L, Hematocrit 34L, Mean Corpuscular Volume 85, Mean Corpuscular Hemoglobin 28, Mean Corpuscular Hemoglobin Concent 33, Red Cell Distribution Width 14.9H, Platelet Count 286, Mean Platelet Volume 11.8, Immature Granulocyte % (Auto) 1, Neutrophils (%) (Auto) 56, Lymphocytes (%) (Auto) 29, Monocytes (%) (Auto) 8, Eosinophils (%) (Auto) 7, Basophils (%) (Auto) 1, Neutrophils # (Auto) 4.4, Lymphocytes # (Auto) 2.3, Monocytes # (Auto) 0.6, Eosinophils # (Auto) 0.5H, Basophils # (Auto) 0.0, Immature Granulocyte # (Auto) 0.0, Sodium Level 136, Potassium Level 4.0, Chloride Level 103, Carbon Dioxide Level 24, Anion Gap 9, Blood Urea Nitrogen 14, Creatinine 0.76, Estimat Glomerular Filtration Rate 87, BUN/Creatinine Ratio 18, Glucose Level 95, Calcium Level 9.0, Corrected Calcium 9.6, Phosphorus Level 5.6H, Magnesium Level 1.8, Total Bilirubin 0.3, Aspartate Amino Transf (AST/SGOT) 99H, Alanine Aminotransferase (ALT/SGPT) 385H, Alkaline Phosphatase 226H, Total Protein 6.2L, Albumin 3.2 02/15/23 05:40: Glucometer 81 02/15/23 07:22: Glucometer 216H 02/15/23 11:02: Glucometer 230H Microbiology 02/10/23 Blood Culture - Preliminary, Resulted 02/10/23 MRSA Screen - Final, Complete MRSA not isolated 02/09/23 Urine Culture - Final, Complete Pseudomonas aeruginosa Home Meds Active Children's Aspirin (Aspirin) 81 Mg Tab.chew 81 Mg PO DAILY 90 Days Metoprolol Succinate 25 Mg Tab.er.24h 25 Mg PO DAILY 90 Days Clopidogrel (Clopidogrel Bisulfate) 75 Mg Tablet 75 Mg PO DAILY 90 Days Reported Insulin Aspart 100 Unit/Ml Vial Unit SQ UD PER PUMP Melatonin 5 Mg Tablet 5 Mg PO HS Bupropion Xl (Bupropion HCl) 300 Mg Tab.er.24h 300 Mg PO DAILY Levothyroxine Sodium 150 Mcg Tablet 150 Mcg PO DAILY Trazodone HCl 150 Mg Tablet 150 Mg PO HS Sucralfate 1 Gram Tablet 1 Gm PO TIDAC Losartan Potassium 25 Mg Tablet 25 Mg PO DAILY Atorvastatin Calcium 80 Mg Tablet 80 Mg PO DAILY Duloxetine HCl 30 Mg Capsule.dr 30 Mg PO HS Xalatan (Latanoprost) 2.5 Ml Drops 1 Drop OU HS Pantoprazole Sodium 40 Mg Tablet.dr 40 Mg PO BID Myrbetriq (Mirabegron) 50 Mg Tab.er.24h 50 Mg PO DAILY Timolol Maleate 0.5% (Timolol Maleate) 5 Ml Drops 1 Drop OU DAILY Patient Allergies: Coded Allergies: iodine (Verified Allergy, Unknown, VOMITING EXTREME, 12/25/21) shrimp (Verified Allergy, Unknown, EXTREME VOMITING, 12/25/21) cephalexin (Verified Adverse Reaction, Mild, DIARRHEA, 12/25/21) piperacillin (Verified Adverse Reaction, Unknown, transaminitis?, 02/15/23) tazobactam (Verified Adverse Reaction, Unknown, transaminitis?, 02/15/23) Height (Feet): 5 Height (Inches): 2.00 Weight (Pounds): 175 Weight (Ounces): 0.9 Home Health Need/Face to Face Date of Face to Face: Feb 15, 2023 Clinical Findings: Generalized weakness and fatigue I have seen Pt [id number]: Yes Discharged To: Home Diagnosis/Conditions: Diabetes, Hypothyroidism, Hypertension, GERD Patient is Homebound due to: Don fall risk due to instabilty Homebound Status Due to the above stated illness, injury or surgical procedure (medical condition or diagnosis) and associated clinical findings, the patient is homebound because of his/her inability to leave home except with aid of a supportive device and/or person AND leaving the home requires a considerable and taxing effort or is medically contraindicated. Pt req the following assistanc: Aid of another person Home Health Nursing Orders Home Health Services Order: Nursing Services, Physical Therapy-Evaluate & Treat Certify Stmt I certify that this patient is under my care and that I, a nurse practitioner or a physician; a assistant sales director working with me, had a face to face encounter that - meets the physician face to face encounter requirements with this patient as dated. Discharge Physical Exam General: Alert, Oriented X3, No Acute Distress HEENT: Atraumatic Lungs: Clear to Auscultation, Normal Air Movement Heart: Regular Rate, No Murmurs Abdomen: Normal Bowel Sounds, Soft, No Tenderness Extremities: No Edema Skin: No Rashes Neuro: Normal Speech Psych/Mental Status: Mental Status NL SYED FORBES MD 02/18/23 1216: Addendum Physician Addendum Addendum I personally have seen and evaluated the patient and performed the physical exam. I agree with the documented assessment and plan. Progress 12:16 BENTLEY HALL MD, RESIDENT Feb 15, 2023 12:38 SYED FORBES MD Feb 18, 2023 12:16
[2023-02-15 13:00] VITALS: BP 113/73
== END 2023-02-15 13:17 | disposition home health service (06) | DRG 871 ==
LOC: EDUNIT# 23:01 → ER 23:04 → ICU 02-10 00:33 → 4TH 02-11 15:25
PROVIDERS: ADMIT Internal Medicine; ATTEND Family Medicine
DX: A41.9 Sepsis, unspecified organism (principal); E11.10 Type 2 diabetes mellitus with ketoacidosis without coma; I21.4 Non-ST elevation (NSTEMI) myocardial infarction; N39.0 Urinary tract infection, site not specified; E87.8 Other disorders of electrolyte and fluid balance, not elsewhere classified; R74.8 Abnormal levels of other serum enzymes; D64.9 Anemia, unspecified; G47.33 Obstructive sleep apnea (adult) (pediatric); I10 Essential (primary) hypertension; E78.00 Pure hypercholesterolemia, unspecified; K21.9 Gastro-esophageal reflux disease without esophagitis; E03.9 Hypothyroidism, unspecified; M19.90 Unspecified osteoarthritis, unspecified site; H54.3 Unqualified visual loss, both eyes; K59.00 Constipation, unspecified; Z87.891 Personal history of nicotine dependence; Z79.4 Long term (current) use of insulin; Z79.899 Other long term (current) drug therapy; Z88.1 Allergy status to other antibiotic agents; Z88.8 Allergy status to other drugs, medicaments and biological substances
CPT/HCPCS: 36415; 71045; 71250; 74176; 76705; 80048; 80053; 80074; 80329; 81000; 82010; 82150; 82805; 82947; 83036; 83605; 83690; 83735; 84100; 84484; 85007; 85025; 85027; 85610; 85652; 85730; 86141; 87040; 87077; 87081; 87088; 87186; 93005; 93041; 93306; 96361; 96365; 96375; 96376

== ENCOUNTER → 2023-02-12 | Outpatient (CLI) | payer MEDICARE, MEDICAID ==
[~2023-02-12] MED LIST changes: +ASPI81TA64 PO; +BUPR300T98 PO; +CLOP75TA28 PO; +INSU100V42 SQ; +LEVO150T6 PO; +MELA5TAB14 PO; +MTP25TSR PO; +TRAZ150T72 PO
== END ==
LOC: PREOP 05:37
PROVIDERS: ATTEND Surgery
DX: Z01.818 Encounter for other preprocedural examination (principal)

== ENCOUNTER 2023-02-14 10:19 | Outpatient (CLI) | payer MEDICARE, MEDICAID ==
[~2023-02-14] VITALS: Ht 157.5 cm; Wt 78.5 kg
[~2023-02-14 10:19] MED LIST changes: -ASPI81TA64 PO; -CLOP75TA28 PO; -MTP25TSR PO
[2023-02-15] MEDS ORDERED: MTP25TSR PO ×2 (10:58)
[2023-02-15] MEDS ORDERED: ASPI81TA64 PO ×2 (10:58)
[2023-02-15] MEDS ORDERED: CLOP75TA28 PO ×2 (10:58)
== END 2023-02-17 14:55 | disposition home or self-care (01) ==
LOC: PREOP 10:19
PROVIDERS: ATTEND Specialist
DX: Z01.818 Encounter for other preprocedural examination (principal)

== ENCOUNTER 2023-02-20 10:40 | Emergency (ER) | payer MEDICARE, MEDICAID ==
[~2023-02-20] VITALS: Ht 152 cm; Wt 82.0 kg
[~2023-02-20 10:40] MED LIST changes: +ASPI81TA64 PO; +CLOP75TA28 PO; +MTP25TSR PO
--- NOTE | 2023-02-20 11:43 | Diagnostic Imaging Report ---
EXAMINATION: Chest 1 view HISTORY: rib pain after fall COMPARISON: None available. FINDINGS: Heart size and pulmonary vasculature are normal. The lungs are clear without consolidation, pleural effusion, or pneumothorax. The osseous structures are intact. IMPRESSION: 1. No acute radiographic abnormality in the chest. Dictated by: Dictated on workstation # [id number]
--- NOTE | 2023-02-20 11:57 | ED Fall/Injury ---
General Chief Complaint: Trauma-Non Activation Stated Complaint: HIT HEAD/SORE RIBS Nursing Triage Note: PT STATES SHE FELL LAST NIGHT HIT HER HEAD LAST NIGHT ON THE BBQ GRILL, ALSO HIT LT CHEST/RIBS. NOT SURE IF SHE GOT KNOCKED OUT. "I THINK I GOT DIZZY AND TRIPPED." HAD DIFFICULTY GETTING UP BUT DID GET UP ON HER OWN. HAS NOT TAKEN ANY OF HER MEDS TODAY, IS "TYPE I & II DIABETIC" Source: patient Exam Limitations: no limitations History of Present Illness Date Seen by Provider: Feb 20, 2023 Time Seen by Provider: 11:07 Initial Comments 67-year-old female presents to the emergency department today after a fall yesterday. She hit her head on the barbecue grill but then denies any loss of consciousness. She also hit her left ribs which is her main concern at this time. She states it hurts to take a deep breath causing her to feel short of breath. She has bruising in this area. She is on Plavix/aspirin. She denies any visual changes, headaches, upper or lower extremity weakness numbness or tingling. All other systems reviewed and negative except documented per HPI. Voice recognition software was used to help create this chart Allergies and Home Medications Allergies Coded Allergies: iodine (Verified Allergy, Unknown, VOMITING EXTREME, 12/25/21) shrimp (Verified Allergy, Unknown, EXTREME VOMITING, 12/25/21) cephalexin (Verified Adverse Reaction, Mild, DIARRHEA, 12/25/21) piperacillin (Verified Adverse Reaction, Unknown, transaminitis?, 02/15/23) tazobactam (Verified Adverse Reaction, Unknown, transaminitis?, 02/15/23) Patient Home Medication List Home Medication List Reviewed: Yes Aspirin (Children's Aspirin) 81 Mg Tab.chew, 81 MG PO DAILY Prescribed by: Ruth Wellington on 02/15/23 1058 Atorvastatin Calcium (Atorvastatin Calcium) 80 Mg Tablet, 80 MG PO DAILY, (Repo rted) Entered as Reported by: CHANTEL LAWRENCE on 10/03/22 1204 Bupropion HCl (Bupropion Xl) 300 Mg Tab.er.24h, 300 MG PO DAILY, (Reported) Entered as Reported by: CAMERON MALHOTRA on 02/10/23 1327 Clopidogrel Bisulfate (Clopidogrel) 75 Mg Tablet, 75 MG PO DAILY Prescribed by: Ruth Wellington on 02/15/23 1058 Duloxetine HCl (Duloxetine HCl) 30 Mg Capsule.dr, 30 MG PO HS, (Reported) Entered as Reported by: DANA LAZCANO on 08/13/21 1228 Hydrocodone/Acetaminophen (Hydrocodone-Acetamin 5-325 mg) 5 Mg-325 Mg Tablet, 1 TAB PO Q4H PRN for PAIN-MODERATE (5-7) Prescribed by: NINO LARRY MD on 02/20/23 1216 Insulin Aspart (Insulin Aspart) 100 Unit/Ml Vial, UNIT SQ UD, (Reported) Entered as Reported by: CAMERON MALHOTRA on 02/10/23 1400 Latanoprost (Xalatan) 2.5 Ml Drops, 1 DROP OU HS, (Reported) Entered as Reported by: CAMERON MALHOTRA on 03/16/20 1027 Levothyroxine Sodium (Levothyroxine Sodium) 150 Mcg Tablet, 150 MCG PO DAILY, (Reported) Entered as Reported by: CAMERON MALHOTRA on 02/10/23 1327 Losartan Potassium (Losartan Potassium) 25 Mg Tablet, 25 MG PO DAILY, (Reported) Entered as Reported by: CHANTEL LAWRENCE on 10/03/22 1204 Melatonin (Melatonin) 5 Mg Tablet, 5 MG PO HS, (Reported) Entered as Reported by: CAMERON MALHOTRA on 02/10/23 1327 Metoprolol Succinate (Metoprolol Succinate) 25 Mg Tab.er.24h, 25 MG PO DAILY Prescribed by: Ruth Wellington on 02/15/23 1058 Mirabegron (Myrbetriq) 50 Mg Tab.er.24h, 50 MG PO DAILY, (Reported) Entered as Reported by: CAMERON MALHOTRA on 03/16/20 1027 Pantoprazole Sodium (Pantoprazole Sodium) 40 Mg Tablet.dr, 40 MG PO BID, (Reported) Entered as Reported by: CAMERON MALHOTRA on 03/16/20 1027 Sucralfate (Sucralfate) 1 Gram Tablet, 1 GM PO TIDAC, (Reported) Entered as Reported by: CHANTEL LAWRENCE on 10/03/22 1204 Timolol Maleate (Timolol Maleate 0.5%) 5 Ml Drops, 1 DROP OU DAILY, (Reported) Entered as Reported by: CHRISTIANO RODRIGUEZ on 12/21/18 1144 Trazodone HCl (Trazodone HCl) 150 Mg Tablet, 150 MG PO HS, (Reported) Entered as Reported by: CAMERON MALHOTRA on 02/10/23 1327 Review of Systems Review of Systems Constitutional: see HPI Past Kdgihzs-Knwajt-Ngmnbh Hx Patient Social History Tobacco Use?: No Smoking Status: Former Smoker Substance use?: No Alcohol Use?: No Immunizations Up To Date Tetanus Booster (TDap): Unknown First/Initial COVID19 Vaccinat: NO Seasonal Allergies Seasonal Allergies: Yes Past Medical History Surgery/Hospitalization HX: APPY, ROBERT, DENTALOSA, HTN,HLD, IDDM, RENAL STONES, GERD, HYPOTHYROIDISM, ANXIETY, DEPRESSION Surgeries: Yes (OVARIAN CYST, DENTAL, MOLE REMOVED, TOENAIL, FX ARM, shoulder sx) Appendectomy, Gallbladder, Hysterectomy, Oophorectomy Respiratory: Yes Sleep Apnea Currently Using CPAP: Yes Currently Using BIPAP: No Cardiac: Yes High Cholesterol, Hypertension Neurological: Yes Headaches /Migraines Reproductive Disorders: Yes (POST MENOPAUSAL BLEEDING/ENDOMETRIAL HYPERPLASIA AND ATYPIA) Female Reproductive Disorders: Menstrual Problems, 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, 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 Sexually Transmitted Disease: No HIV/AIDS: No Genitourinary: Yes Bladder Infection, Kidney Stones, UTI-Chronic Gastrointestinal: Yes (ESOPHAGEAL ULCER) Gastroesophageal Reflux, Colorado's Esophagus, Gastrointestinal Bleed, Chronic Constipation, Polyps, Esophagitis, Hiatal Hernia, Ulcer, Gall Bladder Disease Musculoskeletal: Yes (RIGHT WRIST FX) Arthritis, Fractures Endocrine: Yes (INSULIN PUMP AND CGM; DKA) Diabetes, Insulin dep, Hypothyroidsim HEENT: Yes (READING GLASSES; POOR DENTITION, MISSING TEETH) Glaucoma Loss of Vision: Bilateral Hearing Impairment: Denies Cancer: No Psychosocial: Yes Sleep Difficulties, Anxiety, Depression Integumentary: Yes (EAR SKIN TAG/MOLE: HAIRLINE) Blood Disorders: No Adverse Reaction/Blood Tranf: No (N/A) Family Medical History Cancer 19 FATHER ( of stomache cancer) Family history: Arthritis G8 BROTHER (bad back) Family history: Gastrointestinal disease 19 MOTHER ( with c-diff) No Pertinent Family Hx PAST SURGICAL HISTORY -RA-HYSTERECTOMY/BSO 12/[address] MONTES FOR ENDOMETRIAL HYPERPLASIA AND ATYPIA - EGD/BIOPSIES 10/05/[address] DOW: Pre-Operative Diagnosis Coffee ground emesis, GERD, epigastric pain Post-Operative Diagnosis Gastritis Hiatal Hernia Colorado's Esophagus Procedure & Operative Findings Date of Procedure 10/14/22 Procedure Performed/Findings EGD with bx Physical Exam Vital Signs Vital Signs - First Documented 02/20/23 10:52 Temp 35.8 Pulse 64 Resp 20 B/P (MAP) 119/42 (67) Pulse Ox 98 O2 Delivery Room Air Capillary Refill : Less Than 3 Seconds Height, Weight, BMI Height: 5'2.00" Weight: 175lbs. 0.9oz. [id number]; 35.00 BMI Method:Stated General Appearance: WD/WN, no apparent distress HEENT: PERRL/EOMI, normal ENT inspection, TMs normal, pharynx normal Neck: non-tender, full range of motion, supple Cardiovascular: regular rate, rhythm, no murmur Respiratory: lungs clear, normal breath sounds, no respiratory distress, other (Splinting with deep inspiration) Gastrointestinal: soft, tenderness (Bruising in left upper abdomen with significant tenderness to palpation even with light palpation. Voluntary guarding without rebound tenderness.) Extremities: normal range of motion, non-tender, normal inspection, normal capillary refill Neurologic/Psychiatric: veterinary bacteriologist II-XII nml as tested, no motor/sensory deficits, alert, normal mood/affect, oriented x 3 Skin: normal color, warm/dry Progress/Results/Core Measures Results/Orders My Orders Orders - KENDYNINO DO Chest 1 View, Ap/Pa Only (02/20/23 10:53) Ct Abdomen/Pelvis Wo (02/20/23 11:39) Vital Signs/I&O 02/20/23 02/20/23 10:52 12:45 Temp 35.8 35.8 Pulse 64 56 Resp 20 20 B/P (MAP) 119/42 (67) 146/53 Pulse Ox 98 98 O2 Delivery Room Air Room Air Blood Pressure Mean: 67 Departure Communication (Admissions) Patient is hemodynamically stable. Chest x-ray is negative. She did hit her head yesterday but she completely alert and oriented she is not on any specific blood thinning medication. She is on antiplatelet medication, aspirin and Plavix but again she has no neurologic deficits and injury happened yesterday. No indication for head CT at this time. Given location of her pain concern for intra-abdominal injury as well as rib injury. Chest x-ray is negative including no fractures or pneumothoraces. CT of her abdomen pelvis is obtained to rule out intra-abdominal injury. She has an anaphylactic reaction to iodinated contrast to shellfish so we avoided IV contrast at this time. CT scan shows no acute abnormalities including no free fluid in the pelvis. She is discharged in stable condition with supportive care. Impression Primary Impression: Fall Qualified Codes: W19.XXXA - Unspecified fall, initial encounter Additional Impressions: Left upper quadrant pain Rib pain on left side Disposition: HOME, SELF-CARE Condition: Stable Departure-Patient Inst. Referrals: CAMERON DICKINSON DO (PCP/Family) Primary Care Physician Patient Instructions: Preventing Falls ED, Acute Pain, Adult Add. Discharge Instructions: Take pain medications as prescribed. Increase your fluids and rest as needed. It is important that you continue to take deep breaths so that you dont get pneumonia. Return to the ER for any severe concerns. All discharge instructions reviewed with patient and/or family. Voiced understanding. Scripts Hydrocodone/Acetaminophen (Hydrocodone-Acetamin 5-325 mg) 5 Mg-325 Mg Tablet 1 TAB PO Q4H PRN for PAIN-MODERATE (5-7) for 3 Days, #12 TAB Prov: NINO LARRY DO 02/20/23 NINO LARRY DO Feb 20, 2023 11:57
--- NOTE | 2023-02-20 12:09 | Diagnostic Imaging Report ---
PROCEDURE: CT abdomen and pelvis without contrast. TECHNIQUE: Multiple contiguous axial images were obtained through the abdomen and pelvis without the use of intravenous contrast. Auto Exposure Controls were utilized during the CT exam to meet ALARA standards for radiation dose reduction. INDICATION: Fall with pain in the left lower rib region. COMPARISON: Comparison is made to prior CT of 02/10/2023. FINDINGS: The lung bases are clear. There is some stranding in the subcutaneous fat of the left upper quadrant, perhaps an area of ecchymosis from recent injury. No fluid collection or hematoma is identified. Underlying ribs at this location are intact without evidence of fracture. The liver and spleen are unremarkable. The gallbladder is surgically absent. Pancreas, adrenal glands and kidneys are unremarkable. Aorta is nonaneurysmal. Bowel loops are nonobstructed. There is a large stool load throughout the colon. The bladder is unremarkable. There is no free fluid or evidence of hemoperitoneum. Bony structures are intact. IMPRESSION: Probable area of ecchymosis in the subcutaneous fat in the left upper quadrant. No other abnormality is detected. Dictated by: Dictated on workstation # [id number]
[2023-02-20] MEDS ORDERED: ACHD5005 PO (12:15)
[2023-02-20 12:45] VITALS: BP 146/53
== END 2023-02-20 12:45 | disposition home or self-care (01) ==
LOC: EDUNIT# 10:40 → ER 10:43
DX: S30.1XXA Contusion of abdominal wall, initial encounter (principal); R07.81 Pleurodynia; G47.30 Sleep apnea, unspecified; E11.9 Type 2 diabetes mellitus without complications; Z90.49 Acquired absence of other specified parts of digestive tract; Z99.89 Dependence on other enabling machines and devices; Z79.4 Long term (current) use of insulin; W18.30XA Fall on same level, unspecified, initial encounter; W22.8XXA Striking against or struck by other objects, initial encounter
CPT/HCPCS: 71045; 74176

== ENCOUNTER 2023-02-21 09:35 | Day surgery (SDC) | payer MEDICARE, MEDICAID ==
[~2023-02-21] VITALS: Ht 157.5 cm; Wt 82.0 kg
[2023-02-21] MEDS: TETRACAINE 0.5% OPHTH SOLN 5 ML BTL OU PRN ×4 (10:14→10:29)
[2023-02-21] MEDS ORDERED: MOXIFLOXACIN OPHTH SOLN 5 MG/ML 0.5 ML SYRINGE OP ONE (10:15)
[2023-02-21] MEDS ORDERED: LIDOCAINE PF 1% 2 ML VIAL IR PRN (10:15)
[2023-02-21] MEDS ORDERED: TIMOLOL 0.5% (CATARACTS) 0.3 ML BTL OU PRN (10:15)
[2023-02-21] MEDS ORDERED: POVIDONE IODINE OPHTH SOLN 5% 30 ML OP ONE (10:15)
[2023-02-21] MEDS: TROPICAMIDE 1% OPH SOLN (MYDRIACYL) 15 ML BTL OP SCH ×3 (10:18→10:29)
[2023-02-21] MEDS: PHENYLEPHRINE 10% OPHTH SOLN 5 ML BTL OU SCH ×3 (10:18→10:29)
[2023-02-21 10:39] VITALS: BP 119/60
--- NOTE | 2023-02-21 10:46 | Ophthalmologist Pre-Op Note ---
Pre-Operative Progress Note H&P Reviewed The H&P was reviewed, patient examined and no changes noted. Date H&P Reviewed: Feb 21, 2023 Time H&P Reviewed: 10:45 Pre-Op Dx Cataract, Left Eye TOBIAS DOBBS MD Feb 21, 2023 10:45
[2023-02-21] MEDS ORDERED: MIDAZOLAM INJ 2 MG/2 ML VIAL ONE (10:51)
--- NOTE | 2023-02-21 11:07 | Ophthalmology Operative Report ---
Cataract removal/placement IOL PREOPERATIVE DIAGNOSIS: Cataract Left Eye POSTOPERATIVE DIAGNOSIS: Cataract Left Eye PROCEDURE: Cataract removal and placement of posterior chamber implant, left eye SURGEON: Yosi Dobbs ANESTHESIA: Topical with sedation COMPLICATIONS: None ESTIMATED BLOOD LOSS: Minimal DESCRIPTION OF PROCEDURE: After proper informed consent was obtained, the patient, a 67 female, was taken to the Operating Room and the left eye was anesthetized with tetracaine. The left eye was then prepped and draped in the usual manner. A wire lid speculum was placed. A paracentesis was made at the left hand position. Preservative free lidocaine was injected into the anterior chamber followed by viscoelastic. A clear corneal incision was made in the temporal position. A capsulorrhexis was preformed and the central nuclear and cortical material were removed. The posterior capsule was polished and an Jayy 20.5 CNA0T0 was placed into the capsular bag. The residual viscoelastic was aspirated and balanced saline solution was injected into the anterior chamber. Moxifloxacin was injected into the anterior chamber. The wound was checked and found to be water tight. The patient tolerated the procedure well without complications. YOSI DOBBS MD Feb 21, 2023 11:07
[2023-02-21 11:17] VITALS: BP 119/60
--- NOTE | 2023-02-21 14:31 | Anesthesia-General Post-Op ---
MAC Patient Condition Mental Status/LOC: Same as Preop Cardiovascular: Satisfactory Nausea/Vomiting: Absent Respiratory: Satisfactory Pain: Controlled Complications: Absent Post Op Complications Complications None Follow Up Care/Instructions Patient Instructions None needed. Anesthesiology Discharge Order Discharge Order Patient is doing well, no complaints, stable vital signs, no apparent adverse anesthesia problems. No complications reported per nursing. DICKSON RICHARDSON CRNA Feb 21, 2023 14:30
== END 2023-02-21 11:20 | disposition home or self-care (01) ==
LOC: SDC 09:35
PROVIDERS: ATTEND Specialist
DX: H26.9 Unspecified cataract (principal); Z87.891 Personal history of nicotine dependence; E66.9 Obesity, unspecified
CPT/HCPCS: 66984; V2632

== ENCOUNTER 2023-03-11 10:08 | Outpatient (CLI) | payer MEDICARE, MEDICAID ==
[~2023-03-11] VITALS: Ht 157 cm; Wt 82.0 kg
== END 2023-03-11 12:45 | disposition home or self-care (01) ==
LOC: PREOP 10:08
PROVIDERS: ATTEND Specialist
DX: Z01.818 Encounter for other preprocedural examination (principal)

== ENCOUNTER 2023-03-14 09:41 | Day surgery (SDC) | payer MEDICARE, MEDICAID ==
[~2023-03-14] VITALS: Ht 152 cm; Wt 82.0 kg
[2023-03-14] MEDS ORDERED: POVIDONE IODINE OPHTH SOLN 5% 30 ML OP ONE (09:45)
[2023-03-14] MEDS ORDERED: MOXIFLOXACIN OPHTH SOLN 5 MG/ML 0.5 ML SYRINGE OP ONE (09:45)
[2023-03-14] MEDS ORDERED: TIMOLOL 0.5% (CATARACTS) 0.3 ML BTL OU PRN (09:45)
[2023-03-14] MEDS ORDERED: LIDOCAINE PF 1% 2 ML VIAL IR PRN (09:45)
[2023-03-14] MEDS: TETRACAINE 0.5% OPHTH SOLN 5 ML BTL OU PRN ×4 (09:51→10:09)
[2023-03-14 09:57] VITALS: BP 106/59
[2023-03-14] MEDS: PHENYLEPHRINE 10% OPHTH SOLN 5 ML BTL OU SCH ×3 (10:00→10:09)
[2023-03-14] MEDS: TROPICAMIDE 1% OPH SOLN (MYDRIACYL) 15 ML BTL OP SCH ×3 (10:00→10:09)
[2023-03-14] MEDS ORDERED: MIDAZOLAM INJ 2 MG/2 ML VIAL ONE (10:04)
--- NOTE | 2023-03-14 10:18 | Ophthalmologist Pre-Op Note ---
Pre-Operative Progress Note H&P Reviewed The H&P was reviewed, patient examined and no changes noted. Date H&P Reviewed: Mar 14, 2023 Time H&P Reviewed: 10:18 Pre-Op Dx Cataract, Right Eye TOBIAS DOBBS MD Mar 14, 2023 10:18
--- NOTE | 2023-03-14 10:37 | Ophthalmology Operative Report ---
Cataract removal/placement IOL PREOPERATIVE DIAGNOSIS: Cataract Right Eye POSTOPERATIVE DIAGNOSIS: Cataract Right Eye PROCEDURE: Cataract removal and placement of posterior chamber implant, right eye SURGEON: Yosi Dobbs ANESTHESIA: Topical with sedation COMPLICATIONS: None ESTIMATED BLOOD LOSS: Minimal DESCRIPTION OF PROCEDURE: After proper informed consent was obtained, the patient, a 67 female, was taken to the Operating Room and the right eye was anesthetized with tetracaine. The right eye was then prepped and draped in the usual manner. A wire lid speculum was placed. A paracentesis was made at the left hand position. Preservative free lidocaine was injected into the anterior chamber followed by viscoelastic. A clear corneal incision was made in the temporal position. A capsulorrhexis was preformed and the central nuclear and cortical material were removed. The posterior capsule was polished and Jayy 20.5 CNA0T0 IOL was placed into the capsular bag. The residual viscoelastic was aspirated and balanced saline solution was injected into the anterior chamber. Moxifloxacin was injected into the anterior chamber. The wound was checked and found to be water tight. The patient tolerated the procedure well without complications. YOSI DOBBS MD Mar 14, 2023 10:37
[2023-03-14 10:45] VITALS: BP 116/42
--- NOTE | 2023-03-14 12:54 | Anesthesia-General Post-Op ---
MAC Patient Condition Mental Status/LOC: Same as Preop Cardiovascular: Satisfactory Nausea/Vomiting: Absent Respiratory: Satisfactory Pain: Controlled Complications: Absent Post Op Complications Complications None Follow Up Care/Instructions Patient Instructions None needed. Anesthesiology Discharge Order Discharge Order Patient was doing well after the procedure with no complaints, stable vital signs, no apparent adverse anesthesia problems. No complications reported per nursing. JOHAN BREEN DO Mar 14, 2023 12:54
== END 2023-03-14 10:49 | disposition home or self-care (01) ==
LOC: SDC 09:41
PROVIDERS: ATTEND Specialist
DX: E11.36 Type 2 diabetes mellitus with diabetic cataract (principal); H25.9 Unspecified age-related cataract; Z87.891 Personal history of nicotine dependence; E66.9 Obesity, unspecified; Z79.4 Long term (current) use of insulin; Z68.35 Body mass index [BMI] 35.0-35.9, adult
CPT/HCPCS: 66984; V2632